=== PATIENT | male | born 1950 | race Caucasian/White ===

== ENCOUNTER 2016-12-27 16:00 | Inpatient (IN) | END 2017-01-05 16:52 | disposition home health service (06) | DRG 872 | DX: A41.9 Sepsis, unspecified organism (principal); N17.9 Acute kidney failure, unspecified; E11.52 Type 2 diabetes mellitus with diabetic peripheral angiopathy with gangrene; E11.42 Type 2 diabetes mellitus with diabetic polyneuropathy; M86.9 Osteomyelitis, unspecified; N30.00 Acute cystitis without hematuria; E11.621 Type 2 diabetes mellitus with foot ulcer; E11.65 Type 2 diabetes mellitus with hyperglycemia; E11.610 Type 2 diabetes mellitus with diabetic neuropathic arthropathy; L97.529 Non-pressure chronic ulcer of other part of left foot with unspecified severity; L03.032 Cellulitis of left toe; E11.69 Type 2 diabetes mellitus with other specified complication; I10 Essential (primary) hypertension; D63.8 Anemia in other chronic diseases classified elsewhere; I70.245 Atherosclerosis of native arteries of left leg with ulceration of other part of foot; I70.201 Unspecified atherosclerosis of native arteries of extremities, right leg; B96.5 Pseudomonas (aeruginosa) (mallei) (pseudomallei) as the cause of diseases classified elsewhere; Z79.4 Long term (current) use of insulin ==

== ENCOUNTER 2017-01-16 14:44 | Emergency (ER) | payer MEDICARE, OTHER ==
[~2017-01-16] VITALS: Ht 152.4 cm; Wt 68.0 kg
[~2017-01-16 14:44] MED LIST: ASPI81TA3 PO; ATOR40TA68 PO; LEVO500T72 PO; LISI20TA11 PO; METO-448 PO; NOVMIX SC; Vancomycin Iv Per Pharmacy IVPB
[2017-01-16 14:47] VITALS: Ht 152.4 cm; Wt 68.0 kg
--- NOTE | 2017-01-16 17:51 | ERA ---
ER Documentation Chief Complaint Date/Time DATE: 01/16/17 TIME: 17:48 Chief Complaint on home antibiotics for diabetic foot, not improvement HPI This is a 66-year-old Greek-speaking male. An ada accommodation consultant was used. He was sent by his home health care nurse for evaluation of diabetic toe. The patient is currently taking vancomycin through left upper extremity PICC line. He is unsure why the nurse sent him to the emergency room. He states that the wound has been healing well he denies any significant pain or drainage or discharge no fevers or chills. He states that he may have missed 1 dose of vancomycin within the last week secondary to malfunctioning system otherwise he has no complaints. He states that he has a follow-up appointment with Dr. Nielsen on of this week. ROS All systems reviewed and are negative except as per history of present illness. Medications Home Meds Active Scripts [Vancomycin Iv Per Pharmacy] 750 EACH No Conflict Check, 750 MG IVPB Q12 for 30 Days Prov:ROCHELLE MCBRIDE MD 01/05/17 Aspirin (Aspirin) 81 Mg Chew, 81 MG PO DAILY for 60 Days, #60 TAB Prov:ROCHELLE MCBRIDE MD 01/05/17 Metoprolol Tartrate* (Lopressor*) 25 Mg Tab, 25 MG PO BID for 30 Days, #60 TAB Prov:ROCHELLE MCBRIDE MD 01/05/17 Lisinopril* (Lisinopril*) 20 Mg Tablet, 20 MG PO DAILY for 30 Days, #30 TAB Prov:ROCHELLE MCBRIDE MD 01/05/17 Atorvastatin* (Atorvastatin*) 40 Mg Tablet, 40 MG PO HS for 60 Days, #60 TAB Prov:ROCHELLE MCBRIDE MD 01/05/17 Levofloxacin* (Levaquin*) 500 Mg Tablet, 500 MG PO DAILY for 30 Days, TAB Prov:ROCHELLE MCBRIDE MD 01/05/17 Reported Medications Insulin Aspart (Novolog Mix (70/30)) 100 Units/Ml Soln, 0 SC WITH BREAKFAST DINNE, EA 20 UNITS-QAM,14 UNITS-QOM 12/27/16 Allergies Allergies: Coded Allergies: No Known Allergy (Unverified , 01/16/17) PMhx/Soc History of Surgery: No Anesthesia Reaction: No Hx Neurological Disorder: No Hx Respiratory Disorders: No Hx Cardiac Disorders: No Hx Psychiatric Problems: No Hx Miscellaneous Medical Probl: Yes (DM GIB, HTN, + ETOH, severe, erosive esophagitis, hiatal hernia) Hx Alcohol Use: No Hx Substance Use: No Hx Tobacco Use: No FmHx Family History: diabetes Physical Exam Vitals Vital Signs Date Time Temp Pulse Resp B/P Pulse Ox O2 Delivery O2 Flow Rate FiO2 01/16/17 14:47 99.1 90 20 141/65 99 Physical Exam General: Well developed, well nourished, no acute distress Head: Normocephalic, atraumatic. Eyes: Pupils equally reactive, EOM intact ENT: Moist mucous membranes Neck: Supple, no lymphadenopathy Respiratory: Lungs clear bilaterally, no distress Cardiovascular: RRR, no murmurs, rubs, or gallops Abdominal: Soft, non-tender, non-distended, no peritoneal signs : Deferred MSK: Left great toe has an ulceration with granulation tissue, well-appearing without erythema warmth or tenderness, no evidence of malodorous discharge, no purulent drainage. Neurologic: Alert and oriented, moving all extremities, normal speech, no focal weakness, no cerebellar signs Skin: No rash Psych: Normal mood Result Diagram: 01/16/175 01/16/171754 Results 24 hrs Laboratory Tests Test 01/16/17 17:55 White Blood Count 7.210^3/ul Red Blood Count 3.4510^6/ul Hemoglobin 9.3g/dl Hematocrit 29.2% Mean Corpuscular Volume 84.6fl Mean Corpuscular Hemoglobin 27.0pg Mean Corpuscular Hemoglobin Concent 31.8g/dl Red Cell Distribution Width 14.0% Platelet Count 90708^3/UL Mean Platelet Volume 11.4fl Neutrophils % 59.2% Lymphocytes % 26.4% Monocytes % 11.2% Eosinophils % 2.6% Basophils % 0.3% Nucleated Red Blood Cells % 0.0/100WBC Neutrophils # (Manual) 410^3/ul Lymphocytes # 1.910^3/ul Monocytes # 0.810^3/ul Eosinophils # 0.210^3/ul Basophils # 0.010^3/ul Nucleated Red Blood Cells # 0.010^3/ul Erythrocyte Sedimentation Rate 98mm/Hr Sodium Level 140mmol/L Potassium Level 3.9mmol/L Chloride Level 99mmol/L Carbon Dioxide Level 25mmol/L Anion Gap 20 Blood Urea Nitrogen 33mg/dl Creatinine 1.63mg/dl Glucose Level 90mg/dl Calcium Level 9.6mg/dl C-Reactive Protein 1.7mg/dl Procedures/MDM EKG, MONITORS, & DIAGNOSTIC IMAGING: X-ray left great toe radiology IMPRESSION: 1. Marked lysis of the first distal phalanx with associated pathologic fractures. Findings consistent with osteomyelitis. 2. Atherosclerosis. 3. Large soft tissue also of the first toe distally and diffuse soft tissue swelling of the first toe. RPTAT: QQ LAB INTERPRETATION: No leukocytosis, elevated ESR and CRP though to be expected MEDICAL DECISION MAKING: The patient presents for evaluation of left great toe ulcer. I am unclear why the patient's home health care nurse and the patient to the emergency room other than she may have confused granulation tissue with purulent drainage. The wound is extremely well-appearing here in the emergency room without signs of significant infection. The patient has no complaints and no pain out of proportion. Given his history I do believe he would benefit from screening laboratory testing, ESR, CRP and x-ray. However the patient has prompt follow- up with his sr. logistics analyst this week on . The patient is currently receiving appropriate antibiotics. No systemic signs or symptoms of infection or sepsis. If the patient's laboratory testing is reassuring I believe outpatient management will be appropriate. ER COURSE: The patient's ESR and CRP are elevated though to be expected, no fever and normal white count. I spoke to Dr. Nielsen, his managing sr. logistics analyst. He reviewed images of the toe and agrees that the patient can be safely discharged with follow-up on . No indication for hospitalization. Patient informed. Dressing applied. I kept the patient and/or family informed of laboratory and diagnostic imaging results throughout the emergency room course. DISPOSITION PLAN: We discussed follow up with the patient's primary care doctor within 24 to 48 hours as needed. We also discussed return to the emergency room for worsening symptoms or worsening condition. Outpatient referral: [facility] on Departure Diagnosis: Primary Impression: Osteomyelitis of left foot Qualified Code: M86.272 - Subacute osteomyelitis of left foot Condition: Stable HAILEY SANTIAGO MD Jan 16, 2017 17:50
[2017-01-16 18:14] LABS: BASOPHILS % 0.3 % (0.0-2.0); EOSINOPHILS # 0.2 10^3/ul (0.0-0.5); EOSINOPHILS % 2.6 % (0.0-7.0); HEMATOCRIT 29.2 % (42.0-52.0); HEMOGLOBIN 9.3 g/dl (14.0-18.0); LYMPHOCYTES # 1.9 10^3/ul (0.8-2.9); LYMPHOCYTES % 26.4 % (15.0-51.0); MEAN CORPUSCULAR HGB CONC 31.8 g/dl (32.0-37.0); MEAN CORPUSCULAR VOLUME 84.6 fl (82.0-101.0); MEAN PLATELET VOLUME 11.4 fl (7.4-10.4); MONOCYTE # 0.8 10^3/ul (0.3-0.9); MONOCYTES % 11.2 % (0.0-11.0); NEUTROPHILS % 59.2 % (39.0-77.0); PLATELET COUNT 247 10^3/UL (140-415); RED BLOOD COUNT 3.45 10^6/ul (4.70-6.10); WHITE BLOOD COUNT 7.2 10^3/ul (4.8-10.8)
--- NOTE | 2017-01-16 18:22 | RADRPT ---
PROCEDURE: XR Left First Toe. CLINICAL INDICATION: Osteomyelitis of the left first toe. TECHNIQUE: Three views of the left first toe are available for review COMPARISON: Left foot radiographs dated 12/27/2016. FINDINGS: There is been significant interval change with marked lysis of the first distal phalanx and associat ed pathologic fractures. There is pathologic fracture through the proximal articular surface of the first distal phalanx. There is no other lytic lesion or fracture. The articular surfaces are other baum intact. Vascular calcifications are present consistent with atherosclerosis. There is a large soft tissue ulcer of the first toe distally there is diffuse soft tissue swelling o f the first toe. There is no radiopaque foreign body. IMPRESSION: 1. Marked lysis of the first distal phalanx with associated pathologic fractures. Findings consist ent with osteomyelitis. 2. Atherosclerosis. 3. Large soft tissue also of the first toe distally and diffuse soft tissue swelling of the first t oe. RPTAT: QQ .Mauro Gonsales MD, MD Date Time Electronically viewed and signed by .Mauro Gonsales MD, on 01/16/2017 18:21 .R/
[2017-01-16 18:46] LABS: CALCIUM 9.6 mg/dl (8.4-10.2); CREATININE 1.63 mg/dl (0.61-1.24); POTASSIUM 3.9 mmol/L (3.5-5.1)
[2017-01-16 18:58] LABS: C-REACTIVE PROTEIN 1.7 mg/dl (0.0-0.9)
[2017-01-16 20:15] VITALS: BP 134/77; PULSE 88; RESP 18; TEMP 98.9
== END 2017-01-16 20:15 | disposition home or self-care (01) ==
LOC: E/R 14:44
DX: M86.272 Subacute osteomyelitis, left ankle and foot (principal); I10 Essential (primary) hypertension; L97.522 Non-pressure chronic ulcer of other part of left foot with fat layer exposed; Z79.4 Long term (current) use of insulin; Z79.82 Long term (current) use of aspirin
CPT/HCPCS: 73660; 80048; 85025; 85651; 86140

== ENCOUNTER 2017-02-24 12:25 | Inpatient (IN) | payer MEDICARE, OTHER ==
[~2017-02-24] VITALS: Ht 167.6 cm; Wt 61.5 kg
[2017-02-24 14:13] LABS: HEMATOCRIT 31.3 % (42.0-52.0); HEMOGLOBIN 10.4 g/dl (14.0-18.0); LYMPHOCYTES # 1.3 10^3/ul (0.8-2.9); LYMPHOCYTES % 12.3 % (15.0-51.0); MEAN CORPUSCULAR HEMOGLOBIN 27.1 pg (29.0-33.0); MEAN CORPUSCULAR HGB CONC 33.2 g/dl (32.0-37.0); MEAN CORPUSCULAR VOLUME 81.5 fl (82.0-101.0); MEAN PLATELET VOLUME 11.3 fl (7.4-10.4); MONOCYTE # 0.9 10^3/ul (0.3-0.9); MONOCYTES % 8.5 % (0.0-11.0); NEUTROPHIL # 8.3 10^3/ul (1.6-7.5); NEUTROPHILS % 78.8 % (39.0-77.0); PLATELET COUNT 186 10^3/UL (140-415); RED BLOOD COUNT 3.84 10^6/ul (4.70-6.10); RED CELL DISTRIBUTION WIDTH 13.5 % (11.5-14.5); WHITE BLOOD COUNT 10.5 10^3/ul (4.8-10.8)
[2017-02-24 14:29] LABS: INR 1.11; PROTIME 14.3 Sec (12.2-14.2); PT RATIO 1.1
[2017-02-24 14:30] LABS: PARTIAL THROMBOPLASTIN TIME 29.2 Sec (25.0-35.0)
--- NOTE | 2017-02-24 14:40 | RADRPT ---
PROCEDURE: XR Chest. CLINICAL INDICATION: Sepsis. TECHNIQUE: Single frontal view. COMPARISON: 01/04/2017. FINDINGS: The left arm PICC line has been removed. The lungs are clear. The heart is mildly enlarged. There is no pleural effusion. There is no pneumothorax. IMPRESSION: 1. Left arm PICC line removed. 2. Clear lungs. 3. Mild cardiomegaly. RPTAT: QQ .Mauro Gonsales MD, MD Date Time Electronically viewed and signed by .Mauro Gonsales MD, MD on 02/24/2017 14:39 .R/
[2017-02-24 14:51] LABS: ADD UMIC YES; UR ASCORBIC ACID NEGATIVE (NEGATIVE); UR BILIRUBIN (Dip) NEGATIVE (NEGATIVE); UR BLOOD (Dip) NEGATIVE (NEGATIVE); UR CLARITY SLIGHTLY CLOUDY (CLEAR); UR COLOR YELLOW (YELLOW); UR GLUCOSE (Dip) 1+ mg/dL (NEGATIVE); UR KETONES (Dip) TRACE mg/dL (NEGATIVE); UR LEUKOCYTE ESTERASE (Dip) NEGATIVE Leu/ul (NEGATIVE); UR MUCUS FEW /HPF (NONE SEEN); UR NITRITE (Dip) NEGATIVE (NEGATIVE); UR RBC 1 /HPF (0-5); UR SPECIFIC GRAVITY (Dip) 1.016 (1.003-1.030); UR TOTAL PROTEIN (Dip) 2+ mg/dl (NEGATIVE); UR UROBILINOGEN (Dip) NEGATIVE (NEGATIVE)
--- NOTE | 2017-02-24 14:52 | RADRPT ---
PROCEDURE: XR Left Foot. CLINICAL INDICATION: Left foot pain. Left first toe pain. Osteomyelitis. TECHNIQUE: Three views. Frontal, lateral, and oblique. COMPARISON: Left first toe radiographs dated 01/16/2017. FINDINGS: As seen previously, there is marked lysis of the first distal phalanx with associated pathologic fra ctures. There is slightly more lysis when compared with the prior study. There is a pathologic fract ure through the proximal articular surface of the first distal phalanx and a pathologic fracture thr ough the terminal tuft. There is no other lytic lesion or fracture. The articular surfaces are other baum intact. Vascular calcifications are present consistent with atherosclerosis. There is a soft tissue ulcer of the first toe distally and there is diffuse soft tissue swelling of the first toe. The soft tissues are otherwise unremarkable. There is no radiopaque foreign body. IMPRESSION: 1. Osteomyelitis of the first distal phalanx, worse than seen previously. 2. Atherosclerosis. 3. No other new abnormality. RPTAT: QQ .Mauro Gonsales MD, MD Date Time Electronically viewed and signed by .Mauro Gonsales MD, on 02/24/2017 14:52 .R/
[2017-02-24 14:57] LABS: ALANINE AMINOTRANSFERASE 64 IU/L (13-69); ALBUMIN 4.2 g/dl (3.3-4.9); ALBUMIN/GLOBULIN RATIO 0.91; ALKALINE PHOSPHATASE 140 IU/L (42-121); ANION GAP 16 (8-16); ASPARTATE AMINO TRANSFERASE 58 IU/L (15-46); BILIRUBIN,INDIRECT 0.5 mg/dl (0-1.1); BILIRUBIN,TOTAL 0.5 mg/dl (0.2-1.3); BLOOD UREA NITROGEN 39 mg/dl (7-20); CALCIUM 9.2 mg/dl (8.4-10.2); CARBON DIOXIDE 21 mmol/L (21-31); CHLORIDE 106 mmol/L (97-110); GLUCOSE 195 mg/dl (70-220); POTASSIUM 4.4 mmol/L (3.5-5.1); SODIUM 139 mmol/L (135-144); TOTAL PROTEIN 8.8 g/dl (6.1-8.1)
[2017-02-24] MEDS ORDERED: SOD CHLORIDE 0.9% 1,000 ML IV SCH (15:05)
[2017-02-24 15:10] LABS: TROPONIN-I < 0.012 ng/ml (0.00-0.12)
[2017-02-24] MEDS ORDERED: SODIUM CHLORIDE 0.9% 1L BAG IV* STA (15:23)
--- NOTE | 2017-02-24 15:24 | ERA ---
ER Documentation Chief Complaint Date/Time DATE: 02/24/17 TIME: 15:20 Chief Complaint Pt with fever, weakness, ST X 4 days. Tylenol @ 1245, LLE non-healing ulcer HPI This is a 66-year-old male who presents to the emergency room for evaluation of generalized weakness. According to the patient and the patient's daughter this patient does have a history of type 1 diabetes and does have a previous history of bone infection in the left foot. The patient states that he does have an ulcer in the area and states that whenever he gets weak and has a fever usually has an infection in that site. The patient was on IV antibiotics with a home health care nurse approximately 3 weeks ago however he finishes course of antibiotics. The patient came to the ER today with daughter for evaluation of his symptoms. ROS All systems reviewed and are negative except as per history of present illness. Medications Home Meds Active Scripts [Vancomycin Iv Per Pharmacy] 750 EACH No Conflict Check, 750 MG IVPB Q12 for 30 Days Prov:ROCHELLE MCBRIDE MD 01/05/17 Aspirin (Aspirin) 81 Mg Chew, 81 MG PO DAILY for 60 Days, #60 TAB Prov:ROCHELLE MCBRIDE MD 01/05/17 Metoprolol Tartrate* (Lopressor*) 25 Mg Tab, 25 MG PO BID for 30 Days, #60 TAB Prov:ROCHELLE MCBRIDE MD 01/05/17 Lisinopril* (Lisinopril*) 20 Mg Tablet, 20 MG PO DAILY for 30 Days, #30 TAB Prov:ROCHELLE MCBRIDE MD 01/05/17 Atorvastatin* (Atorvastatin*) 40 Mg Tablet, 40 MG PO HS for 60 Days, #60 TAB Prov:ROCHELLE MCBRIDE MD 01/05/17 Levofloxacin* (Levaquin*) 500 Mg Tablet, 500 MG PO DAILY for 30 Days, TAB Prov:ROCHELLE MCBRIDE MD 01/05/17 Reported Medications Insulin Aspart (Novolog Mix (/30)) 100 Units/Ml Soln, 0 SC WITH BREAKFAST DINNE, EA 20 UNITS-QAM,14 UNITS-QOM 12/27/16 Allergies Allergies: Coded Allergies: No Known Allergy (Unverified , 01/16/17) PMhx/Soc History of Surgery: No Anesthesia Reaction: No Hx Neurological Disorder: Yes (diabetic neuropathy) Hx Respiratory Disorders: No Hx Cardiac Disorders: Yes (htn) Hx Psychiatric Problems: No Hx Miscellaneous Medical Probl: Yes (DM, stomach ulcer, r. toe ulceration w debridment) Hx Alcohol Use: No Hx Substance Use: No Hx Tobacco Use: No Smoking Status: Never smoker Physical Exam Vitals Vital Signs Date Time Temp Pulse Resp B/P Pulse Ox O2 Delivery O2 Flow Rate FiO2 02/24/17 12:35 99.8 91 20 100/71 97 Physical Exam INITIAL VITAL SIGNS: Reviewed by me GENERAL: The patient is well developed and appropriate for usual state of health in no apparent distress HEENT: Pupils equal, round, and reactive to light. EOMI. There is no scleral icterus. NECK: C-spine is soft and supple, there is no meningismus. There is no cervical lymphadenopathy. LUNGS: Clear to auscultation bilaterally. There are no rales, wheezes or rhonchi. HEART: Regular rate and rhythm, no murmurs, clicks, rubs or gallops. ABDOMEN: Soft, non-tender, non-distended. There are bowel sounds in all four quadrants. No rebound or guarding. EXTREMITIES: There is no peripheral cyanosis or edema. No focal swelling or erythema. NEUROLOGICAL: The patient moves all four extremities with 5/5 strength. Cranial nerves II - XII are intact. Normal gait. Alert and oriented SKIN: 2 cm x 2 cm ulceration of the plantar aspect of the left great toe, surrounding area of erythema there is no apparent rash or petechiae. HEME/LYMPHATIC: There is no evidence of excessive bruising or lymphedema. PSYCHIATRIC: The patient does not appear anxious or depressed. Result Diagram: 02/24/17 1400 02/24/17 1400 Results 24 hrs Laboratory Tests Test 02/24/17 14:00 02/24/17 14:15 White Blood Count 10.510^3/ul Red Blood Count 3.8410^6/ul Hemoglobin 10.4g/dl Hematocrit 31.3% Mean Corpuscular Volume 81.5fl Mean Corpuscular Hemoglobin 27.1pg Mean Corpuscular Hemoglobin Concent 33.2g/dl Red Cell Distribution Width 13.5% Platelet Count 54947^3/UL Mean Platelet Volume 11.3fl Neutrophils % 78.8% Lymphocytes % 12.3% Monocytes % 8.5% Eosinophils % 0.0% Basophils % 0.0% Nucleated Red Blood Cells % 0.0/100WBC Neutrophils # 8.310^3/ul Lymphocytes # 1.310^3/ul Monocytes # 0.910^3/ul Eosinophils # 0.010^3/ul Basophils # 0.010^3/ul Nucleated Red Blood Cells # 0.010^3/ul Prothrombin Time 14.3Sec Prothrombin Time Ratio 1.1 INR International Normalized Ratio 1.11 Activated Partial Thromboplast Time 29.2Sec Sodium Level 139mmol/L Potassium Level 4.4mmol/L Chloride Level 106mmol/L Carbon Dioxide Level 21mmol/L Anion Gap 16 Blood Urea Nitrogen 39mg/dl Creatinine 1.80mg/dl Glucose Level 195mg/dl Lactic Acid Level 1.1mmol/L Calcium Level 9.2mg/dl Total Bilirubin 0.5mg/dl Direct Bilirubin 0.00mg/dl Indirect Bilirubin 0.5mg/dl Aspartate Amino Transf (AST/SGOT) 58IU/L Alanine Aminotransferase (ALT/SGPT) 64IU/L Alkaline Phosphatase 140IU/L Troponin I < 0.012ng/ml Total Protein 8.8g/dl Albumin 4.2g/dl Globulin 4.60g/dl Albumin/Globulin Ratio 0.91 Urine Color YELLOW Urine Clarity SLIGHTLY CLOUDY Urine pH 5.0 Urine Specific [place] 1.016 Urine Ketones TRACEmg/dL Urine Nitrite NEGATIVEmg/dL Urine Bilirubin NEGATIVEmg/dL Urine Urobilinogen NEGATIVEmg/dL Urine Leukocyte Esterase NEGATIVELeu/ul Urine Microscopic RBC 1/HPF Urine Microscopic WBC 2/HPF Urine Mucus FEW/HPF Urine Hemoglobin NEGATIVEmg/dL Urine Glucose 1+mg/dL Urine Total Protein 2+mg/dl Current Medications Medications (Trade) Dose Ordered Sig/Adam Route PRN Reason Start Time Stop Time Status Last Admin Dose Admin Sodium Chloride (NS) 1,000 ml @ 80 mls/hr [id number] IV 02/24/17 15:05 02/25/17 03:34 Ondansetron HCl (Zofran Inj) 4 mg BRIDGE ORDER PRN IV NAUSEA AND/OR VOMITING 02/24/17 15:30 02/25/17 15:29 Acetaminophen (Tylenol Tab) 650 mg ER BRIDGE PRN PO MILD PAIN/FEVER 02/24/17 15:30 02/25/17 15:29 Procedures/MDM EKG: Rate/Rhythm: [Normal Sinus Rhythm] QRS, ST, T-waves: [No changes consistent w/ acute ischemia] Impression: [No evidence of ischemia or arrhythmia] Chest X-ray 1V Interpreted by me: Soft Tissue: No acute abnormalities Bones: No acute abnormalities Mediastinum/Cardiac Silhouette/Lungs: [No acute abnormalities] X-ray Foot 3V Interpreted by me: Bones: Osteomyelitis of first metatarsal Joints: [No dislocation] Foreign body: [None] This 66-year-old male presents to the ER for evaluation of generalized weakness. The patient did state he had a fever at home and when I evaluated this patient he did have foot ulcer on the plantar aspect of the first great toe. Patient did have a septic workup in the emergency room and x-ray does reveal osteomyelitis. He was started on vancomycin in the emergency room. He will be given Rocephin and will be placed in for admission at this time under the care of her panel physician Dr. Strong. Patient was given 30 cc/kg of IV normal saline has a mean arterial pressure gradient 65 Departure Diagnosis: Primary Impression: Osteomyelitis of left foot Additional Impressions: Acute weakness Renal insufficiency Condition: Stable AMEE MARTINEZ DO Feb 24, 2017 15:24
[2017-02-24] MEDS ORDERED: ACETAMINOPHEN 325 MG TAB PO PRN (15:30)
[2017-02-24] MEDS ORDERED: ONDANSETRON 4 MG INJ IV PRN ×2 (15:30→16:30)
[2017-02-24] MEDS ORDERED: NOVMIX SC ×2 (15:46)
[2017-02-24] MEDS: SOD CHLORIDE 0.9% 1,000 ML IV SCH ×2 (16:30→18:52)
[2017-02-24] MEDS ORDERED: HYDROCODONE/APAP (5/325) TAB PO PRN ×2 (16:30)
[2017-02-24] MEDS ORDERED: DOCUSATE SODIUM 100 MG CAP PO PRN (16:30)
[2017-02-24] MEDS ORDERED: CEFTRIAXONE 1 GM/50 ML (PMX) 50 ML IVPB ONE (16:30)
[2017-02-24] MEDS ORDERED: VANCOMYCIN 1 GM (PMX) 250 ML IVPB SCH (16:30)
[2017-02-24] MEDS ORDERED: MAGNESIUM HYDROXIDE 30ML CUP PO PRN (16:30)
[2017-02-24] MEDS ORDERED: ACETAMINOPHEN 650 MG SUPP PR PRN (16:30)
[2017-02-24] MEDS ORDERED: NACL 0.9% 3 ML SYG IV SCH (16:30)
[2017-02-24] MEDS ORDERED: BISACODYL 10 MG SUPP PR PRN (16:30)
[2017-02-24] MEDS ORDERED: morphine 2 MG INJ IV PRN (16:30)
[2017-02-24] MEDS ORDERED: VANCOMYCIN IV PER PHARMACY XX SCH (17:00)
--- NOTE | 2017-02-24 17:03 | HP ---
Date/Time of Note Date/Time of Note DATE: 02/24/17 TIME: 16:50 Assessment/Plan VTE Prophylaxis VTE Prophylaxis Intervention: SCD's Assessment/Plan Chief Complaint/Hosp Course Impression and plan 1. Left first distal phalanx osteomyelitis. Of note patient did finish antibiotic regimen roughly 2 weeks ago. Imaging this time shows worsening of left first distal phalanx. Will get video conference specialist as well as infectious disease physician to follow. 2. Suspect acute bronchitis. Will place on antibiotics for now. Follow-up on influenza culture. 3. Diabetes. Will start insulin regimen. Adjust as needed. 4. Essential hypertension. Will provide with antihypertensives and adjust as needed 5. Anemia likely of chronic disease. Remain stable at present. Will monitor for now. 6. History of severe erosive esophagitis and gastritis. Continue on PPI medication 7. AK I. Will get airbrush artist technical to follow. Admission process time is greater than 40 minutes Discussed plan of care with Dr. Strong Problems: HPI/ROS Hx of Present Illness This is a 66-year-old male with history of diabetes, insulin dependency, GI bleed, hypertension, alcohol use, severe erosive esophagitis and gastritis who came to [facility] for reports of increased weakness as well as cough. Patient reports that his symptoms had been occurring for roughly 3 days duration with no improvement. He denies following his primary care provider in taking any antibiotics. He subsequently went to [facility] for further evaluation. Of note patient was previously discharged from [facility] on January 05, 2017 for osteomyelitis of his left foot. He reportedly was sent home on antibiotics and finished his antibiotic regimen roughly 2 weeks ago. It tended to leave this time in the hospital be again found his left foot to be infected with worsening imaging showing osteomyelitis of the first distal phalanx. His chest x-ray did show him to have clear lungs and mild cardiomegaly. He does report that he has one sick contact with a friend. He denies having any influenza shots at this time. He denies any fevers or chills at home. He only reports having moderate productive cough. He denies any other chest pain or shortness of breath or any other associated symptoms. On laboratory where he was noted to be slightly anemic and also with acute renal insufficiency. Lactic acid was 1.2. We will evaluate him for the aformentiond issues. ROS 12 point review of systems obtained and entirely negative except that mentioned in history of present illness PMH/Family/Social Past Medical History Medical/surgical history diabetes, insulin dependency, GI bleed, hypertension, alcohol use, severe erosive esophagitis and gastritis Past Surgical History Past Surgical Hx: no surgical history Social History Alcohol Use: other (Previous alcohol abuse) Smoking Status: Never smoker Drug Use: none Exam/Review of Systems Vital Signs Vitals Vital Signs Date Time Temp Pulse Resp B/P Pulse Ox O2 Delivery O2 Flow Rate FiO2 02/24/17 16:18 85 16 137/61 99 Room Air 02/24/17 12:35 99.8 Exam Constitutional: alert, oriented Psych: no complaints Head: normocephalic Respiratory: other (No obvious with wheezing or rhonchi) Cardiovascular: regular rate and rhythm Gastrointestinal: non-tender, soft Musculoskeletal: other (Noted with left foot first distal phalanx with ulcerative wound) Neurological: MOSS GATHERER II-XII intact, nl mental status, nl speech Labs Result Diagram: 02/24/17 1400 02/24/17 1400 Medications Medications Current Medications Sodium Chloride 1,000 ml @ 80 mls/hr [id number] IV Last administered on 16:38; Admin Dose 80 MLS/HR; Start 02/24/17 at 15:05; Stop 02/25/17 at 03: 34 Vancomycin HCl 250 ml @ 125 mls/hr ONCE IVPB ; Start 02/24/17 at 16:30; Stop at 18:29 Ceftriaxone Sodium (Rocephin) 50 ml @ 100 mls/hr ONCE ONCE IVPB Last administered on 02/24/17 16:35; Admin Dose 100 MLS/HR; Start 02/24/17 at 16:30 ; Stop 02/24/17 at 16:59 Aspirin (Aspirin) 81 mg DAILY PO ; Start 02/25/17 at 09:00; Status UNV Atorvastatin Calcium (Lipitor) 40 mg HS PO ; Start 02/24/17 at 21:00; Status UNV Lisinopril (Zestril) 20 mg DAILY PO ; Start 02/25/17 at 09:00; Status UNV Metoprolol Tartrate 25 mg 25 mg BID PO ; Start 02/24/17 at 21:00; Status UNV Sodium Chloride (NS) 1,000 ml @ 75 mls/hr [id number] IV ; Start 02/24/17 at 16:30 ; Status UNV Ondansetron HCl (Zofran Inj) 4 mg Q6H PRN IV NAUSEA AND/OR VOMITING; Start at 16:30; Status UNV Acetaminophen (Tylenol Tab) 650 mg Q6H PRN PO PAIN LEVEL 1-3 OR FEVER; Start at 16:30; Status UNV Acetaminophen (Tylenol Supp) 650 mg Q6H PRN [place] PAIN LEVEL 1-3 OR FEVER; Start 02/24/17 at 16:30; Status UNV Acetaminophen/ Hydrocodone Bitart ([place] (5/325)) 1 tab Q6H PRN PO MODERATE PAIN LEVEL 4-6; Start 02/24/17 at 16:30; Status UNV Acetaminophen/ Hydrocodone Bitart ([place] (5/325)) 2 tab Q6H PRN PO SEVERE PAIN LEVEL 7-10; Start 02/24/17 at 16:30; Status UNV Morphine Sulfate (morphine) 2 mg Q4H PRN IV SEVERE PAIN LEVEL 7-10; Start 02/24 at 16:30; Status UNV Docusate Sodium (Colace) 100 mg Q12H PRN PO CONSTIPATION; Start 02/24/17 at 16: 30; Status UNV Magnesium Hydroxide (Milk Of Mag) 30 ml DAILY PRN PO CONSTIPATION; Start at 16:30; Status UNV Bisacodyl (Dulcolax Supp) 10 mg DAILY PRN [place] CONSTIPATION; Start 02/24/17 at 16 :30; Status UNV Pantoprazole (Protonix Iv) 40 mg DAILY@06 IV ; Start 02/25/17 at 06:00; Status UNV Miscellaneous Information (* Miscellaneous Pharmacy Order) Discontinue current oral sulfonylur... ONCE ONCE XX ; Start 02/24/17 at 16:30; Stop 02/24/17 at 16: 31; Status UNV Diagnostic Test (Pha) (Accu-Chek) 1 ea 02 XX ; Start 02/25/17 at 02:00; Status UNV Insulin Glargine (Lantus) 9 unit DAILY@08 SC ; Start 02/25/17 at 08:00; Status UNV Miscellaneous Information (* Miscellaneous Pharmacy Order) HYPOGLYCEMIA PROTOCOL w... ONCE ONCE XX ; Start 02/24/17 at 16:30; Stop 02/24/17 at 16:31; Status TRISHAV CLARIBEL OCHOA Feb 24, 2017 17:02
--- NOTE | 2017-02-24 17:35 | CONS ---
Date/Time of Note Date/Time of Note DATE: 02/24/17 TIME: 17:35 Assessment/Plan Assessment/Plan Chief Complaint/Hosp Course ID SHORT NOTE => Patient known to Dr. Arroyo's ID Team Consultants from prior admissions CURRENT ABX: DAY #1 => Vanco IV + Ceftriaxone + Azith REASON FOR ADMISSION * Fevers + generalized weakness x 4 days at home, non-healing foot ulcer ... "Whenever I have fever + weakness at home, it is because my bone infection is back." * (+)Bronchial cough present INFLUENZA A & B BY EIA Final INFLU A&B BY EIA INFLUENZA A NEGATIVE (Ref Range Neg) INFLUENZA B NEGATIVE (Ref Range Neg) * 02/24/17 Left Foot X-Ray: IMPRESSION: 1. Osteomyelitis of the first distal phalanx, worse than seen previously. 2. Atherosclerosis.3. No other new abnormality. * 02/24/17 CXR: IMPRESSION:1. Left arm PICC line removed. 2. Clear lungs.3. Mild cardiomegaly. * 02/24/17 1400 02/24/17 1400 HPI 66 yo M w/PMHx Diabetes Type 1 w/severe peripheral neuropathy, chronic left foot diabetic foot ulcer with hx of osteomyelitis, has completed course of ABX via PICC, which was subsequently removed. * Patient reports he came for evaluation of his left foot ulcer "whenever I have fever and weakness it is because my bone infection is worse." ROS All systems reviewed and are negative except as per history of present illness. Medications Home Meds Active Scripts [Vancomycin Iv Per Pharmacy] 750 EACH No Conflict Check, 750 MG IVPB Q12 for 30 Days Prov:ROCHELLE MCBRIDE MD 01/05/17 Aspirin (Aspirin) 81 Mg Chew, 81 MG PO DAILY for 60 Days, #60 TAB Prov:ROCHELLE MCBRIDE MD 01/05/17 Metoprolol Tartrate* (Lopressor*) 25 Mg Tab, 25 MG PO BID for 30 Days, #60 TAB Prov:ROCHELLE MCBRIDE MD 01/05/17 Lisinopril* (Lisinopril*) 20 Mg Tablet, 20 MG PO DAILY for 30 Days, #30 TAB Prov:ROCHELLE MCBRIDE MD 01/05/17 Atorvastatin* (Atorvastatin*) 40 Mg Tablet, 40 MG PO HS for 60 Days, #60 TAB Prov:ROCHELLE MCBRIDE MD 01/05/17 Levofloxacin* (Levaquin*) 500 Mg Tablet, 500 MG PO DAILY for 30 Days, TAB Prov:ROCHELLE MCBRIDE MD 01/05/17 Reported Medications Insulin Aspart (Novolog Mix (30)) 100 Units/Ml Soln, 0 SC WITH BREAKFAST DINNE, EA 20 UNITS-QAM,14 UNITS-QOM 12/27/16 Allergies Allergies: Coded Allergies: No Known Allergy (Unverified , 01/16/17) PMhx/Soc History of Surgery: s/p toe debridement 2015 Anesthesia Reaction: No Hx Neurological Disorder: Yes (diabetic neuropathy) Hx Respiratory Disorders: No Hx Cardiac Disorders: Yes => (+)HTN, HLD, (+)PVD Hx Psychiatric Problems: No Hx Miscellaneous Medical Probl: Yes (DM, stomach ulcer, r. toe ulceration w debridement) Hx Alcohol Use: No -> Hx of ETOH abuse per notes prior admission Hx Substance Use: No Hx Tobacco Use: No Smoking Status: Never smoker Physical Exam Vitals Vital Signs Date Time Temp Pulse Resp B/P Pulse Ox O2 Delivery O2 Flow Rate FiO2 02/24/17 12:35 99.8 91 20 100/71 97 Physical Exam Constitutional: alert, oriented, well developed HEENT: Unremarkable Neck: Supple, full ROM Respiratory: clear to auscultation, normal air movement Cardiovascular: nl pulses, regular rate and rhythm Gastrointestinal: Soft, NT Extremities: Left foot DFU over great toe and metatarsal foot, with necrosis areas Neurological: nl mental status, nl speech, nl strength ID ASSESSMENT 66 yo M PMhx HTN, HLD, DM-Type 1 w/peripheral neuropathy, GERD, PAD, ETOH abuse admit with: 1. SIRS on admission w/TMax 99.8, ESR 98, CRP 1.7, left shift per Diff Neuts 78.8%, tachycardia => #2 2. Recurrent acute left foot/great toe/1st metatarsal diabetic foot infection with osteomyelitis * 02/24/17 Left Foot X-Ray: IMPRESSION: 1. Osteomyelitis of the first distal phalanx, worse than seen previously. 2. Atherosclerosis.3. No other new abnormality. * 12/29/16 MRI:IMPRESSION:1. Osteomyelitis of the distal phalanx of the left great toe, with contiguous soft tissue ulcerations. 2. Possible early osteomyelitis in the distal aspect of the first proximal phalanx. * WOUND Cx: 12/28 TOE WOUND CULTURE * Organism 1 PSEUDOMONAS AERUGINOSA * Organism 2 ACINETOBACTER BAUMANNII * Organism 3 ENTEROCOCCUS SPECIES * Organism 4 DIPTHEROIDS = CORYNEBACTERIUM SPECIES 3. Diabetes w/complicated diabetic peripheral neuropathy * A1C = 8.1 * 12/29/16 MRI: Early neuropathic changes in the left foot. 4. Peripheral arterial disease * 12/31 BLEXT Arterial Duplex: 1. No evidence of hemodynamically significant arterial stenosis or occlusion in the bilateral lower extremities. 2. Bilateral atherosclerotic calcifications. * Atherosclerosis of the aorta 5. Acute renal injury on CKD 6. Acute bronchitis w/cough -> CXR 02/24/17 = Lungs Clear 7. GERD w/Hx of GIB 2014 -> EGD 10/05/15: Severe ulcerated esophagitis distal third of esophagus likely source of bleeding. Small hiatal hernia. 8. Hx of ETOH 9. HTN 10. HLD ( )MRSA Nares -> Will order CURRENT ABX: DAY #1 => Vanco IV + Ceftriaxone + Azith ID RECOMMENDATIONS 1. Continue Vanco IV + Ceftriaxone 2. APC consult 3. Thank you -- Will follow the patient closely with you. Problems: Consultation Date/Type/Reason Admit Date/Time Feb 24, 2017 at 15:05 Initial Consult Date Exam/Review of Systems Vital Signs Vitals Vital Signs Date Time Temp Pulse Resp B/P Pulse Ox O2 Delivery O2 Flow Rate FiO2 02/24/17 17:13 78 17 128/61 99 Room Air 02/24/17 12:35 99.8 Results Result Diagram: 02/24/17 1400 02/24/17 1400 Results 24 hrs Laboratory Tests Test 02/24/17 14:00 02/24/17 14:15 02/24/17 15:15 02/24/17 16:00 White Blood Count 10.5 # Red Blood Count 3.84 L Hemoglobin 10.4 L Hematocrit 31.3 L Mean Corpuscular Volume 81.5 L Mean Corpuscular Hemoglobin 27.1 L Mean Corpuscular Hemoglobin Concent 33.2 Red Cell Distribution Width 13.5 Platelet Count 186 # Mean Platelet Volume 11.3 H Neutrophils % 78.8 H Lymphocytes % 12.3 L Monocytes % 8.5 Eosinophils % 0.0 Basophils % 0.0 Nucleated Red Blood Cells % 0.0 Neutrophils # 8.3 H Lymphocytes # 1.3 Monocytes # 0.9 Eosinophils # 0.0 Basophils # 0.0 Nucleated Red Blood Cells # 0.0 Prothrombin Time 14.3 H Prothrombin Time Ratio 1.1 INR International Normalized Ratio 1.11 Activated Partial Thromboplast Time 29.2 Sodium Level 139 Potassium Level 4.4 Chloride Level 106 Carbon Dioxide Level 21 Anion Gap 16 Blood Urea Nitrogen 39 H Creatinine 1.80 H Glucose Level 195 Lactic Acid Level 1.1 1.2 Calcium Level 9.2 Total Bilirubin 0.5 Direct Bilirubin 0.00 Indirect Bilirubin 0.5 Aspartate Amino Transf (AST/SGOT) 58 H Alanine Aminotransferase (ALT/SGPT) 64 Alkaline Phosphatase 140 H Troponin I < 0.012 Total Protein 8.8 H Albumin 4.2 Globulin 4.60 H Albumin/Globulin Ratio 0.91 Urine Color YELLOW Urine Clarity SLIGHTLY CLOUDY A Urine pH 5.0 Urine Specific [place] 1.016 Urine Ketones TRACE A Urine Nitrite NEGATIVE Urine Bilirubin NEGATIVE Urine Urobilinogen NEGATIVE Urine Leukocyte Esterase NEGATIVE Urine Microscopic RBC 1 Urine Microscopic WBC 2 Urine Mucus FEW A Urine Hemoglobin NEGATIVE Urine Glucose 1+ H Urine Total Protein 2+ H Hemoglobin A1c 8.1 H Medications Medications Current Medications Sodium Chloride 1,000 ml @ 80 mls/hr [id number] IV Last administered on 16:38; Admin Dose 80 MLS/HR; Start 02/24/17 at 15:05; Stop 02/25/17 at 03: 34 Vancomycin HCl (Vancocin) 250 ml @ 125 mls/hr ONCE IVPB Last administered on 17:07; Admin Dose 125 MLS/HR; Start 02/24/17 at 16:30; Stop 02/24/17 at 18:29 Aspirin (Aspirin) 81 mg DAILY PO ; Start 02/25/17 at 09:00 Atorvastatin Calcium (Lipitor) 40 mg HS PO ; Start 02/24/17 at 21:00 Lisinopril (Zestril) 20 mg DAILY PO ; Start 02/25/17 at 09:00 Metoprolol Tartrate 25 mg 25 mg BID PO ; Start 02/24/17 at 21:00 Sodium Chloride (NS) 1,000 ml @ 75 mls/hr [id number] IV ; Start 02/24/17 at 16:30 Ondansetron HCl (Zofran Inj) 4 mg Q6H PRN IV NAUSEA AND/OR VOMITING; Start at 16:30 Acetaminophen (Tylenol Tab) 650 mg Q6H PRN PO PAIN LEVEL 1-3 OR FEVER; Start at 16:30 Acetaminophen (Tylenol Supp) 650 mg Q6H PRN [place] PAIN LEVEL 1-3 OR FEVER; Start 02/24/17 at 16:30 Acetaminophen/ Hydrocodone Bitart ([place] (5/325)) 1 tab Q6H PRN PO MODERATE PAIN LEVEL 4-6; Start 02/24/17 at 16:30 Acetaminophen/ Hydrocodone Bitart ([place] (5/325)) 2 tab Q6H PRN PO SEVERE PAIN LEVEL 7-10; Start 02/24/17 at 16:30 Morphine Sulfate (morphine) 2 mg Q4H PRN IV SEVERE PAIN LEVEL 7-10; Start 02/24 at 16:30 Docusate Sodium (Colace) 100 mg Q12H PRN PO CONSTIPATION; Start 02/24/17 at 16: 30 Magnesium Hydroxide (Milk Of Mag) 30 ml DAILY PRN PO CONSTIPATION; Start at 16:30 Bisacodyl (Dulcolax Supp) 10 mg DAILY PRN [place] CONSTIPATION; Start 02/24/17 at 16 :30 Pantoprazole (Protonix Iv) 40 mg DAILY@06 IV ; Start 02/25/17 at 06:00 Diagnostic Test (Pha) (Accu-Chek) 1 ea 02 XX ; Start 02/25/17 at 02:00 Insulin Glargine 9 unit 9 unit DAILY@08 SC ; Start 02/25/17 at 08:00 Azithromycin (Zithromax 500mg/ NS (Pmx)) 250 ml @ 250 mls/hr DAILY IVPB ; Start 02/24/17 at 18:00 BHARAT LEUNG NP Feb 24, 2017 17:35
[2017-02-24] MEDS: INSULIN ASPART [NOVOLOG] 3 ML PEN SC SCH ×2 (17:45→20:55)
[2017-02-24 18:28] VITALS: BP 133/63; PULSE 83; RESP 16
[2017-02-24 18:29] VITALS: Ht 167.6 cm; Wt 61.5 kg
[2017-02-24] MEDS ORDERED: PENDING SANTYL ORDER FOR WOUND CARE XX PRN (19:00)
[2017-02-24] MEDS: AZITHROMYCIN 500MG/NS (PMX) 250 ML IVPB SCH (19:04)
[2017-02-24 20:48] VITALS: BP 146/70; RESP 18
[2017-02-24] MEDS: GUAIFENESIN/CODEINE 5ML CUP PO PRN (20:54)
[2017-02-24] MEDS: MEROPENEM 1 GM/50ML(PMX) 50 ML IVPB SCH (20:54)
[2017-02-24] MEDS: METOPROLOL 25 MG TAB PO SCH (20:55)
[2017-02-24] MEDS: ATORVASTATIN 40 MG TAB PO SCH (20:55)
[2017-02-24] MEDS ORDERED: MEROPENEM 2 GM in SOD CHLORIDE 0.9% 100 ML IVPB SCH (21:00)
[2017-02-24] MEDS ORDERED: GLUCOSE GEL 15 GRAM TUBE BUCCAL PRN (21:00)
[2017-02-24] MEDS ORDERED: GLUCAGON 1 MG INJ IM PRN (21:00)
[2017-02-24] MEDS ORDERED: GLUCOSE GEL 15 GRAM TUBE PO PRN ×2 (21:00)
[2017-02-24] MEDS ORDERED: DEXTROSE 50% 50 ML SYRINGE IV PRN ×2 (21:00)
--- NOTE | 2017-02-24 21:12 | CONS ---
DATE OF ADMISSION: 02/24/2017 DATE OF CONSULTATION: 02/24/2017 REASON FOR CONSULTATION: Nonoliguric acute kidney injury. HISTORY OF PRESENT ILLNESS: The patient is a pleasant 66-year- old gentleman with past medical history of type 2 diabetes mellitus for about 15 years without known diabetic retinopathy or neuropathy, hypertension, dyslipidemia, and left diabetic great toe nonhealing ulcer, who presents to [facility] for evaluation of fevers. As you may know, he was receiving outpatient IV vancomycin and Levaquin for osteomyelitis, but completed therapy about two weeks ago. He was scheduled for resection of the left great toe but apparently this has not happened at this time. Upon presentation, he was found to have a creatinine of 1.8 mg per dL. Of note, he was found to have a creatinine of 1.63 mg per dL on January 16, and essentially normal renal function prior to that. A renal consultation has been placed to determine the etiology of this gentleman's impaired GFR. ALLERGIES: HE HAS NO KNOWN DRUG ALLERGIES. REVIEW OF SYSTEMS: All review of systems were evaluated and the patient currently denies any nausea, vomiting, diarrhea, dysuria, chest pain or shortness of breath. PAST MEDICAL HISTORY: 1. Type 2 diabetes mellitus for about 15 years without known retinopathy or nephropathy, or neuropathy. 2. Hypertension. 3. Dyslipidemia. 4. Left great toe diabetic foot ulcer/osteomyelitis. OUTPATIENT MEDICATIONS: 1. Lisinopril 20 mg daily. 2. Lantus. 3. Aspirin 81 mg daily. 4. Lisinopril 20 mg daily. 5. Atorvastatin 40 mg daily. 6. Sliding scale insulin. FAMILY HISTORY: Noncontributory at this time. SOCIAL HISTORY: He denies any recreational drug use. PHYSICAL EXAMINATION: VITAL SIGNS: Blood pressure 133/63, O2 sat of 98 percent on room air. Temperature of 97.7, pulse of 83. HEENT: Atraumatic, Normocephalic. CARDIOVASCULAR: S1, S2 regular. PULMONARY: Clear to auscultation. ABDOMEN: Soft, benign, nontender, nondistended. EXTREMITIES: Failed to reveal any edema. NEUROLOGIC: The patient is awake, alert, oriented x3 with no focal deficits. IMPRESSION AND PLAN: 1. Acute kidney injury: I suspect that this patient has developed an episode of acute kidney injury due to decreased effective circulatory volume. His last dose of Vancomycin was about two weeks ago and certainly antibiotic nephrotoxicity remains on the differential, but if his renal function begins to improve in the next 24 hours with IV fluids then clearly this was all a prerenal event. I have held off on ordering a renal ultrasound unless his renal function does not improve in the next 24 hours. We will check urine eosinophils to rule out drug induced interstitial nephritis. He does have 2 plus proteinuria, but proteinuria can be exacerbated in the setting of acute kidney injury. Nonetheless, I will check a urine protein to urine creatinine ratio. Continue to hold his lisinopril for the time being as it can lead to impaired glomerular perfusion. I agree with normal saline for the time being. 2. Osteomyelitis of the left great toe: Will defer management to our podiatry colleagues. Continue antibiotics. Monitor his vancomycin levels closely in the setting of fluctuating renal function. 3. Hypertension: Continue to hold his Lisinopril as stated above as it will impair renal perfusion in the setting of an already impaired GFR. Once his renal function turns the corner, I think we can resume it. In the meantime, I will place him on hydralazine 25 mg p.o. every 8 hours as needed for blood pressure greater than 150. Thank you for allowing us to participate in the care of this gentleman. More recommendations will be made as laboratory data is obtained. Dictated By: Paulino Saravia MD /sd/jett /Document#: [id number]
--- NOTE | 2017-02-24 21:45 | RADRPT ---
PROCEDURE: Renal US. CLINICAL INDICATION: Acute kidney injury. TECHNIQUE: Multiple sonographic images of the kidneys and urinary bladder were obtained. The imag es were reviewed on a PACS workstation. COMPARISON: No prior studies are available for comparison. FINDINGS: The right kidney measures 9.7 cm. The left kidney measures 9.8 cm. There is no renal mass. There is no hydronephrosis. There is no right renal calculus. There is a nonobstructing 0.8 cm calculus in the mid to upper left kidney. Renal parenchymal thickness is normal bilaterally. Both kidneys are hyperechoic consistent with medical renal disease. The perirenal regions are normal with no fluid collection or mass. The urinary bladder is unremarkable. IMPRESSION: 1. Nonobstructing 0.8 cm calculus in the upper left kidney. 2. Bilateral hyperechoic kidneys consistent with medical renal disease. 3. No hydronephrosis. 4. Otherwise normal renal ultrasound. RPTAT: QQ .Mauro Gonsales MD, MD Date Time Electronically viewed and signed by .Mauro Gonsales MD, on 02/24/2017 21:44 .R/
[2017-02-25] MEDS: GUAIFENESIN/CODEINE 5ML CUP PO PRN (00:59)
[2017-02-25] MEDS: ACCU-CHEK XX SCH (02:00)
[2017-02-25 02:48] VITALS: BP 120/59; RESP 16
[2017-02-25] MEDS: SOD CHLORIDE 0.9% 1,000 ML IV SCH ×3 (03:15→23:15)
[2017-02-25 05:30] LABS: BASOPHILS % 0.1 % (0.0-2.0); HEMATOCRIT 26.6 % (42.0-52.0); LYMPHOCYTES # 2.1 10^3/ul (0.8-2.9); LYMPHOCYTES % 15.1 % (15.0-51.0); MEAN CORPUSCULAR HEMOGLOBIN 27.6 pg (29.0-33.0); MEAN CORPUSCULAR HGB CONC 33.8 g/dl (32.0-37.0); MEAN CORPUSCULAR VOLUME 81.6 fl (82.0-101.0); MEAN PLATELET VOLUME 12.2 fl (7.4-10.4); MONOCYTE # 0.9 10^3/ul (0.3-0.9); MONOCYTES % 6.8 % (0.0-11.0); NEUTROPHIL # 10.7 10^3/ul (1.6-7.5); NEUTROPHILS % 77.6 % (39.0-77.0); PLATELET COUNT 156 10^3/UL (140-415); RED BLOOD COUNT 3.26 10^6/ul (4.70-6.10); RED CELL DISTRIBUTION WIDTH 13.7 % (11.5-14.5); WHITE BLOOD COUNT 13.8 10^3/ul (4.8-10.8)
[2017-02-25] MEDS: PANTOPRAZOLE 40 MG INJ IV SCH (05:32)
[2017-02-25 06:08] LABS: ALBUMIN/GLOBULIN RATIO 0.68; BILIRUBIN,INDIRECT 0.6 mg/dl (0-1.1); BILIRUBIN,TOTAL 0.6 mg/dl (0.2-1.3); CALCIUM 7.8 mg/dl (8.4-10.2); CHOL/HDL RATIO 2.3 RATIO; CREATININE 1.11 mg/dl (0.61-1.24); MAGNESIUM 1.4 mg/dl (1.7-2.5); PHOSPHORUS 2.2 mg/dl (2.5-4.9); POTASSIUM 4.1 mmol/L (3.5-5.1); TOTAL PROTEIN 7.4 g/dl (6.1-8.1)
[2017-02-25 06:15] LABS: T3 UPTAKE 50.8 % (23.5-40.5)
[2017-02-25 06:29] LABS: THYROID STIMULATING HORMONE 0.246 MIU/L (0.465-4.680)
[2017-02-25] MEDS: INSULIN ASPART [NOVOLOG] 3 ML PEN SC SCH ×4 (07:45→20:42)
[2017-02-25] MEDS: INSULIN GLARGINE [LANtus] 3 ML PEN SC SCH (07:59)
[2017-02-25 08:26] VITALS: BP 159/70; RESP 18
[2017-02-25] MEDS: ASPIRIN 81 MG TAB PO SCH (08:33)
[2017-02-25] MEDS: METOPROLOL 25 MG TAB PO SCH ×2 (08:34→20:41)
[2017-02-25] MEDS: MEROPENEM 1 GM/50ML(PMX) 50 ML IVPB SCH ×2 (08:34→20:41)
[2017-02-25] MEDS ORDERED: LISINOPRIL 20 MG TAB PO SCH (09:00)
[2017-02-25] MEDS ORDERED: INFLUENZA VIRUS VACCINE 0.5 ML SYG IM* ONE (09:00)
[2017-02-25] MEDS: AZITHROMYCIN 500MG/NS (PMX) 250 ML IVPB SCH (09:52)
[2017-02-25 10:21] VITALS: BP 142/70; PULSE 88
[2017-02-25] MEDS ORDERED: MAGNESIUM SULFATE 2 GM/50 ML 50 ML IVPB ONE (10:30)
[2017-02-25] MEDS ORDERED: MAGNESIUM SULFATE 1 GM/D5W 100 ML IVPB ONE (11:00)
--- NOTE | 2017-02-25 12:43 | PN ---
Date/Time of Note Date/Time of Note DATE: 02/25/17 TIME: 12:38 Assessment/Plan VTE Prophylaxis VTE Prophylaxis Intervention: SCD's Lines/Catheters IV Catheter Type (from Nrs): Peripheral IV Urinary Cath still in place: No Assessment/Plan Chief Complaint/Hosp Course Impression and plan 1. Left first distal phalanx osteomyelitis. Of note patient did finish antibiotic regimen roughly 2 weeks ago. Imaging this time shows worsening of left first distal phalanx.continue with ID recommendations. awaiting podiatry eval 2. Suspect acute bronchitis. continue on abx. 3. Diabetes. Will start insulin regimen. Adjust as needed. 4. Essential hypertension. Will provide with antihypertensives and adjust as needed 5. Anemia likely of chronic disease. Remain stable at present. Will monitor for now. 6. History of severe erosive esophagitis and gastritis. Continue on PPI medication 7. AK I. 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 dispo/plan. cont on abx. await podiatry eval Discussed plan of care with Dr. Strong Problems: Subjective 24 Hr Interval Summary Free Text/Dictation no s/s of distress. denies any pain Exam/Review of Systems Vital Signs Vitals Vital Signs Date Time Temp Pulse Resp B/P Pulse Ox O2 Delivery O2 Flow Rate FiO2 02/25/17 10:21 88 142/70 02/25/17 08:26 98.0 18 93 02/24/17 18:28 Room Air Intake and Output 02/24/17 02/24/17 02/25/17 15:00 23:00 07:00 Intake Total 550 ml 1520 ml Output Total 1000 ml Balance 550 ml 520 ml Exam Constitutional: alert, oriented Psych: no complaints Head: normocephalic Respiratory: other (No obvious with wheezing or rhonchi) Cardiovascular: regular rate and rhythm Gastrointestinal: non-tender, soft Musculoskeletal: other (Noted with left foot first distal phalanx with ulcerative wound) Neurological: BACK END DEVELOPER II-XII intact, nl mental status, nl speech Results Result Diagram: 02/25/17 0446 02/25/17 0446 Results 24 hrs Laboratory Tests Test 02/24/17 14:00 02/24/17 14:15 02/24/17 15:15 02/24/17 16:00 White Blood Count 10.5 # Red Blood Count 3.84 L Hemoglobin 10.4 L Hematocrit 31.3 L Mean Corpuscular Volume 81.5 L Mean Corpuscular Hemoglobin 27.1 L Mean Corpuscular Hemoglobin Concent 33.2 Red Cell Distribution Width 13.5 Platelet Count 186 # Mean Platelet Volume 11.3 H Neutrophils % 78.8 H Lymphocytes % 12.3 L Monocytes % 8.5 Eosinophils % 0.0 Basophils % 0.0 Nucleated Red Blood Cells % 0.0 Neutrophils # 8.3 H Lymphocytes # 1.3 Monocytes # 0.9 Eosinophils # 0.0 Basophils # 0.0 Nucleated Red Blood Cells # 0.0 Prothrombin Time 14.3 H Prothrombin Time Ratio 1.1 INR International Normalized Ratio 1.11 Activated Partial Thromboplast Time 29.2 Sodium Level 139 Potassium Level 4.4 Chloride Level 106 Carbon Dioxide Level 21 Anion Gap 16 Blood Urea Nitrogen 39 H Creatinine 1.80 H Glucose Level 195 Lactic Acid Level 1.1 1.2 Calcium Level 9.2 Total Bilirubin 0.5 Direct Bilirubin 0.00 Indirect Bilirubin 0.5 Aspartate Amino Transf (AST/SGOT) 58 H Alanine Aminotransferase (ALT/SGPT) 64 Alkaline Phosphatase 140 H Troponin I < 0.012 Total Protein 8.8 H Albumin 4.2 Globulin 4.60 H Albumin/Globulin Ratio 0.91 Urine Color YELLOW Urine Clarity SLIGHTLY CLOUDY A Urine pH 5.0 Urine Specific [place] 1.016 Urine Ketones TRACE A Urine Nitrite NEGATIVE Urine Bilirubin NEGATIVE Urine Urobilinogen NEGATIVE Urine Leukocyte Esterase NEGATIVE Urine Microscopic RBC 1 Urine Microscopic WBC 2 Urine Mucus FEW A Urine Hemoglobin NEGATIVE Urine Glucose 1+ H Urine Total Protein 2+ H Hemoglobin A1c 8.1 H Test 02/24/17 17:44 02/24/17 18:03 02/24/17 20:42 02/24/17 21:00 Bedside Glucose 95 66 L 72 Lactic Acid Level 1.6 Test 02/24/17 21:16 02/24/17 23:05 02/25/17 04:46 02/25/17 07:45 Bedside Glucose 80 80 97 White Blood Count 13.8 #H Red Blood Count 3.26 L Hemoglobin 9.0 L Hematocrit 26.6 L Mean Corpuscular Volume 81.6 L Mean Corpuscular Hemoglobin 27.6 L Mean Corpuscular Hemoglobin Concent 33.8 Red Cell Distribution Width 13.7 Platelet Count 156 Mean Platelet Volume 12.2 H Neutrophils % 77.6 H Lymphocytes % 15.1 Monocytes % 6.8 Eosinophils % 0.0 Basophils % 0.1 Nucleated Red Blood Cells % 0.0 Neutrophils # 10.7 H Lymphocytes # 2.1 Monocytes # 0.9 Eosinophils # 0.0 Basophils # 0.0 Nucleated Red Blood Cells # 0.0 Sodium Level 139 Potassium Level 4.1 Chloride Level 113 H Carbon Dioxide Level 21 Anion Gap 9 # Blood Urea Nitrogen 26 #H Creatinine 1.11 Glucose Level 89 # Hemoglobin A1c 8.2 H Calcium Level 7.8 L Phosphorus Level 2.2 L Magnesium Level 1.4 L Total Bilirubin 0.6 Direct Bilirubin 0.00 Indirect Bilirubin 0.6 Aspartate Amino Transf (AST/SGOT) 58 H Alanine Aminotransferase (ALT/SGPT) 59 Alkaline Phosphatase 126 H Total Protein 7.4 # Albumin 3.0 #L Globulin 4.40 H Albumin/Globulin Ratio 0.68 Triglycerides Level 56 Cholesterol Level 60 L LDL Cholesterol, Calculated 23 HDL Cholesterol 26 L Cholesterol/HDL Ratio 2.3 Thyroid Stimulating Hormone (TSH) 0.246 L Free Thyroxine Index 2.34 Thyroxine (T4) 4.6 L Triiodothyronine (T3) Uptake 50.8 H Test 02/25/17 08:00 02/25/17 11:17 Urine Eosinophils % 0.0 Urine Random Creatinine 57.18 Bedside Glucose 186 Medications Medications Current Medications Aspirin (Aspirin) 81 mg DAILY PO Last administered on 02/25/17 08:33; Admin Dose 81 MG; Start 02/25/17 at 09:00 Atorvastatin Calcium (Lipitor) 40 mg HS PO Last administered on 02/24/17 20:55 ; Admin Dose 40 MG; Start 02/24/17 at 21:00 Metoprolol Tartrate 25 mg 25 mg BID PO Last administered on 02/25/17 08:34; Admin Dose 25 MG; Start 02/24/17 at 21:00 Sodium Chloride (NS) 1,000 ml @ 100 mls/hr Q10H IV Last administered on 06:45; Admin Dose 100 MLS/HR; Start 02/24/17 at 16:30; Stop 02/26/17 at 09: 14 Ondansetron HCl (Zofran Inj) 4 mg Q6H PRN IV NAUSEA AND/OR VOMITING Last administered on 02/25/17 00:40; Admin Dose 4 MG; Start 02/24/17 at 16:30 Acetaminophen (Tylenol Tab) 650 mg Q6H PRN PO PAIN LEVEL 1-3 OR FEVER; Start at 16:30 Acetaminophen (Tylenol Supp) 650 mg Q6H PRN [place] PAIN LEVEL 1-3 OR FEVER; Start 02/24/17 at 16:30 Acetaminophen/ Hydrocodone Bitart ([place] (5/325)) 1 tab Q6H PRN PO MODERATE PAIN LEVEL 4-6; Start 02/24/17 at 16:30 Acetaminophen/ Hydrocodone Bitart ([place] (5/325)) 2 tab Q6H PRN PO SEVERE PAIN LEVEL 7-10; Start 02/24/17 at 16:30 Morphine Sulfate (morphine) 2 mg Q4H PRN IV SEVERE PAIN LEVEL 7-10; Start 02/24 at 16:30 Docusate Sodium (Colace) 100 mg Q12H PRN PO CONSTIPATION; Start 02/24/17 at 16: 30 Magnesium Hydroxide (Milk Of Mag) 30 ml DAILY PRN PO CONSTIPATION; Start at 16:30 Bisacodyl (Dulcolax Supp) 10 mg DAILY PRN [place] CONSTIPATION; Start 02/24/17 at 16 :30 Pantoprazole (Protonix Iv) 40 mg DAILY@06 IV Last administered on 02/25/17 05: 32; Admin Dose 40 MG; Start 02/25/17 at 06:00 Diagnostic Test (Pha) (Accu-Chek) 1 ea 02 XX ; Start 02/25/17 at 02:00 Insulin Glargine 9 unit 9 unit DAILY@08 SC Last administered on 02/25/17 07:59 ; Admin Dose 9 UNIT; Start 02/25/17 at 08:00 Azithromycin 250 ml @ 250 mls/hr DAILY IVPB Last administered on 02/25/17 09: 52; Admin Dose 250 MLS/HR; Start 02/24/17 at 18:00 Meropenem/Sodium Chloride (Merrem 1 Gm/50 ml (Pmx)) 50 ml @ 100 mls/hr Q12 IVPB Last administered on 02/25/17 08:34; Admin Dose 100 MLS/HR; Start at 19:00 Miscellaneous Information (Pending Santyl Order For Wound Care) This patient contreras... PRN PRN XX WOUND CARE; Start 02/24/17 at 19:00 Hydralazine HCl (Apresoline) 25 mg Q8H PRN PO ELEVATED SYSTOLIC BP; Start 02/24 at 19:30 Guaifenesin/ Codeine Phosphate (Robitussin Ac Liquid Cup) 10 ml Q4H PRN PO COUGH Last administered on 02/25/17t 00:59; Admin Dose 10 ML; Start 02/24/17 at 20:30 Miscellaneous Information 1 ea NOTE XX ; Start 02/24/17 at 21:00 Glucose (Glutose) 15 gm Q15M PRN PO DECREASED GLUCOSE; Start 02/24/17 at 21:00 Glucose (Glutose) 22.5 gm Q15M PRN PO DECREASED GLUCOSE; Start 02/24/17 at 21: 00 Dextrose (D50w Syringe) 25 ml Q15M PRN IV DECREASED GLUCOSE; Start 02/24/17 at 21:00 Dextrose (D50w Syringe) 50 ml Q15M PRN IV DECREASED GLUCOSE; Start 02/24/17 at 21:00 Glucagon (Glucagen) 1 mg Q15M PRN IM DECREASED GLUCOSE; Start 02/24/17 at 21:00 Glucose 15 gm 15 gm Q15M PRN BUCCAL DECREASED GLUCOSE; Start 02/24/17 at 21:00 Vancomycin HCl/ Sodium Chloride (Vancocin/NS) 150 ml @ 75 mls/hr Q12H IVPB ; Start 02/25/17 at 13:00 Miscellaneous Information (*Rx Drug Level Order Reminder*) VANCOMYCIN TROUGH 10 / 2 AT 1200 ONCE ONCE XX ; Start 02/26/17 at 12:00; Stop 02/26/17 at 12:01 CLARIBEL OCHOA Feb 25, 2017 12:43
[2017-02-25] MEDS: VANCOMYCIN 750 MG in SOD CHLORIDE 0.9% 150 ML IVPB SCH (13:22)
--- NOTE | 2017-02-25 14:42 | CONS ---
DATE OF ADMISSION: 02/24/2017 DATE OF CONSULTATION: 02/24/2017 REASON FOR CONSULTATION: Antibiotic management. Nik Horvath is a 66-year-old male with numerous problems, who comes in with left first distal phalanx osteomyelitis. PAST PROBLEMS: 1. Adult-onset diabetes mellitus, insulin dependent. 2. GI bleed. 3. Hypertension. 4. Alcohol abuse. 5. Severe erosive gastritis and esophagitis. The patient came into [facility] with increasing weakness and cough which has been going on for 3 days prior to admission. He was not on any antibiotics. He was previously discharged from [facility] on January 05 for osteomyelitis of his left foot. He was sent home on antibiotics and finished his antibiotic regimen 2 weeks ago. He again has left first distal phalanx osteomyelitis. Imaging at this time shows worsening of left first distal phalanx. PAST MEDICAL HISTORY: Operations as outlined. FAMILY HISTORY: Noncontributory. SOCIAL HISTORY: Does not smoke, drink, or abuse drugs. He is a previous alcohol abuser. MEDICATION: Per chart. REVIEW OF SYSTEMS: Noncontributory. PHYSICAL EXAMINATION: GENERAL APPEARANCE: The patient is a well-developed, well- nourished male, alert, responsive, in no acute distress. VITAL SIGNS: Stable. He is afebrile. SKIN: Without generalized rash. HEENT: Within normal limits. NECK: Supple. Lymph nodes nonpalpable. CHEST: Decreased breath sounds at the bases. HEART: Without murmur or gallop. ABDOMEN: Soft. Nontender, without organosplenomegaly or masses. EXTREMITIES: Without cyanosis, clubbing, or edema. RECTAL/GENITAL: Exam is deferred. NEUROLOGICAL: No focal neurological abnormalities. IMPRESSION AND PLAN: The patient currently presents with osteomyelitis. He is started on vancomycin. His white count today is 13.8, BUN and creatinine 26/1.1. Urine is negative for leukocyte esterase and for nitrites. A foot x-ray shows osteomyelitis of the first distal phalanx, worse than previously seen. His influenza A and B are negative. His urine culture is negative. The patient obviously has osteomyelitis of the first distal phalanx. We will continue him on vancomycin and probably on Levaquin. I will dictate my findings to the hospitalists. Dictated By: Alfredo Arroyo MD JD/sd/hieu /Document#: [id number]
--- NOTE | 2017-02-25 14:44 | PN ---
Date/Time of Note Date/Time of Note DATE: 02/25/17 TIME: 14:39 Assessment/Plan VTE Prophylaxis VTE Prophylaxis Intervention: SCD's Lines/Catheters IV [facility]ter Type (from [facility]): Peripheral IV Urinary Cath still in place: No Assessment/Plan Chief Complaint/Hosp Course 1. CHARISSE: likely pre-renal in nature and resolving with hydration. No outflow obstruction noted. Continue IVF x 1-2 more liters then will d/c. Will check Up/ Ucr ratio to quantify proteinuria. Hold ACEi for now in case contrast imaging needed. 2. HTN: CPM, hold ACEi for now due to above and until we see where renal function settles out. 3. Hypomagnesemia: 3 grams mag sulfate today 4. Hypophosphatemia: 500 mg po kphos. 5. Osteomyelitis: Left first distal phalanx, as per ID and podiatry colleagues. Meds reviewed. Discussed with RN. Thank you Problems: Subjective 24 Hr Interval Summary Free Text/Dictation Patient being seen for CHARISSE. No overnight events noted. Constitutional: no complaints Eyes: no complaints ENT: no complaints Respiratory: no complaints Cardiovascular: no complaints Gastrointestinal: no complaints Neurologic: no complaints Endocrine: no complaints Psychological: no complaints Immunologic: no complaints Exam/Review of Systems Vital Signs Vitals Vital Signs Date Time Temp Pulse Resp B/P Pulse Ox O2 Delivery O2 Flow Rate FiO2 02/25/17 10:21 88 142/70 02/25/17 08:26 98.0 18 93 02/24/17 18:28 Room Air Intake and Output 02/24/17 02/24/17 02/25/17 15:00 23:00 07:00 Intake Total 550 ml 1520 ml Output Total 1000 ml Balance 550 ml 520 ml Exam Constitutional: alert, oriented Psych: no complaints Head: normocephalic Eyes: nl conjunctiva ENMT: nl external ears & nose Neck: supple Respiratory: clear to auscultation Cardiovascular: regular rate and rhythm Gastrointestinal: soft Musculoskeletal: nl extremities to inspection Extremities: other 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 Skin: nl turgor Results Result Diagram: 02/25/17 0446 02/25/17 0446 Results 24 hrs Laboratory Tests Test 02/24/17 15:15 02/24/17 16:00 02/24/17 17:44 02/24/17 18:03 Lactic Acid Level 1.2 1.6 Hemoglobin A1c 8.1 H Bedside Glucose 95 Test 02/24/17 20:42 02/24/17 21:00 02/24/17 21:16 02/24/17 23:05 Bedside Glucose 66 L 72 80 80 Test 02/25/17 04:46 02/25/17 07:45 02/25/17 08:00 02/25/17 11:17 White Blood Count 13.8 #H Red Blood Count 3.26 L Hemoglobin 9.0 L Hematocrit 26.6 L Mean Corpuscular Volume 81.6 L Mean Corpuscular Hemoglobin 27.6 L Mean Corpuscular Hemoglobin Concent 33.8 Red Cell Distribution Width 13.7 Platelet Count 156 Mean Platelet Volume 12.2 H Neutrophils % 77.6 H Lymphocytes % 15.1 Monocytes % 6.8 Eosinophils % 0.0 Basophils % 0.1 Nucleated Red Blood Cells % 0.0 Neutrophils # 10.7 H Lymphocytes # 2.1 Monocytes # 0.9 Eosinophils # 0.0 Basophils # 0.0 Nucleated Red Blood Cells # 0.0 Sodium Level 139 Potassium Level 4.1 Chloride Level 113 H Carbon Dioxide Level 21 Anion Gap 9 # Blood Urea Nitrogen 26 #H Creatinine 1.11 Glucose Level 89 # Hemoglobin A1c 8.2 H Calcium Level 7.8 L Phosphorus Level 2.2 L Magnesium Level 1.4 L Total Bilirubin 0.6 Direct Bilirubin 0.00 Indirect Bilirubin 0.6 Aspartate Amino Transf (AST/SGOT) 58 H Alanine Aminotransferase (ALT/SGPT) 59 Alkaline Phosphatase 126 H Total Protein 7.4 # Albumin 3.0 #L Globulin 4.40 H Albumin/Globulin Ratio 0.68 Triglycerides Level 56 Cholesterol Level 60 L LDL Cholesterol, Calculated 23 HDL Cholesterol 26 L Cholesterol/HDL Ratio 2.3 Thyroid Stimulating Hormone (TSH) 0.246 L Free Thyroxine Index 2.34 Thyroxine (T4) 4.6 L Triiodothyronine (T3) Uptake 50.8 H Bedside Glucose 97 186 Urine Eosinophils % 0.0 Urine Random Creatinine 57.18 Medications Medications Current Medications Aspirin (Aspirin) 81 mg DAILY PO Last administered on 02/25/17 08:33; Admin Dose 81 MG; Start 02/25/17 at 09:00 Atorvastatin Calcium (Lipitor) 40 mg HS PO Last administered on 02/24/17 20:55 ; Admin Dose 40 MG; Start 02/24/17 at 21:00 Metoprolol Tartrate 25 mg 25 mg BID PO Last administered on 02/25/17 08:34; Admin Dose 25 MG; Start 02/24/17 at 21:00 Sodium Chloride (NS) 1,000 ml @ 100 mls/hr Q10H IV Last administered on 06:45; Admin Dose 100 MLS/HR; Start 02/24/17 at 16:30; Stop 02/26/17 at 09: 14 Ondansetron HCl (Zofran Inj) 4 mg Q6H PRN IV NAUSEA AND/OR VOMITING Last administered on 02/25/17 00:40; Admin Dose 4 MG; Start 02/24/17 at 16:30 Acetaminophen (Tylenol Tab) 650 mg Q6H PRN PO PAIN LEVEL 1-3 OR FEVER; Start at 16:30 Acetaminophen (Tylenol Supp) 650 mg Q6H PRN [place] PAIN LEVEL 1-3 OR FEVER; Start 02/24/17 at 16:30 Acetaminophen/ Hydrocodone Bitart ([place] (5/325)) 1 tab Q6H PRN PO MODERATE PAIN LEVEL 4-6; Start 02/24/17 at 16:30 Acetaminophen/ Hydrocodone Bitart ([place] (5/325)) 2 tab Q6H PRN PO SEVERE PAIN LEVEL 7-10; Start 02/24/17 at 16:30 Morphine Sulfate (morphine) 2 mg Q4H PRN IV SEVERE PAIN LEVEL 7-10; Start 02/24 at 16:30 Docusate Sodium (Colace) 100 mg Q12H PRN PO CONSTIPATION; Start 02/24/17 at 16: 30 Magnesium Hydroxide (Milk Of Mag) 30 ml DAILY PRN PO CONSTIPATION; Start at 16:30 Bisacodyl (Dulcolax Supp) 10 mg DAILY PRN [place] CONSTIPATION; Start 02/24/17 at 16 :30 Pantoprazole (Protonix Iv) 40 mg DAILY@06 IV Last administered on 02/25/17 05: 32; Admin Dose 40 MG; Start 02/25/17 at 06:00 Diagnostic Test (Pha) (Accu-Chek) 1 ea 02 XX ; Start 02/25/17 at 02:00 Insulin Glargine 9 unit 9 unit DAILY@08 SC Last administered on 02/25/17 07:59 ; Admin Dose 9 UNIT; Start 02/25/17 at 08:00 Azithromycin 250 ml @ 250 mls/hr DAILY IVPB Last administered on 02/25/17 09: 52; Admin Dose 250 MLS/HR; Start 02/24/17 at 18:00 Meropenem/Sodium Chloride (Merrem 1 Gm/50 ml (Pmx)) 50 ml @ 100 mls/hr Q12 IVPB Last administered on 02/25/17 08:34; Admin Dose 100 MLS/HR; Start at 19:00 Miscellaneous Information (Pending [facility]yl Order For Wound Care) This patient contreras... PRN PRN XX WOUND CARE; Start 02/24/17 at 19:00 Hydralazine HCl (Apresoline) 25 mg Q8H PRN PO ELEVATED SYSTOLIC BP; Start 02/24 at 19:30 Guaifenesin/ Codeine Phosphate (Robitussin Ac Liquid Cup) 10 ml Q4H PRN PO COUGH Last administered on 02/25/17 00:59; Admin Dose 10 ML; Start 02/24/17 at 20:30 Miscellaneous Information 1 ea NOTE XX ; Start 02/24/17 at 21:00 Glucose (Glutose) 15 gm Q15M PRN PO DECREASED GLUCOSE; Start 02/24/17 at 21:00 Glucose (Glutose) 22.5 gm Q15M PRN PO DECREASED GLUCOSE; Start 02/24/17 at 21: 00 Dextrose (D50w Syringe) 25 ml Q15M PRN IV DECREASED GLUCOSE; Start 02/24/17 at 21:00 Dextrose (D50w Syringe) 50 ml Q15M PRN IV DECREASED GLUCOSE; Start 02/24/17 at 21:00 Glucagon (Glucagen) 1 mg Q15M PRN IM DECREASED GLUCOSE; Start 02/24/17 at 21:00 Glucose 15 gm 15 gm Q15M PRN BUCCAL DECREASED GLUCOSE; Start 02/24/17 at 21:00 Vancomycin HCl/ Sodium Chloride (Vancocin/NS) 150 ml @ 75 mls/hr Q12H IVPB Last administered on 02/25/17 13:22; Admin Dose 75 MLS/HR; Start 02/25/17 at 13 :00 Miscellaneous Information (*Rx Drug Level Order Reminder*) VANCOMYCIN TROUGH AT 1200 ONCE ONCE XX ; Start 02/26/17 at 12:00; Stop 02/26/17 at 12:01 Sodium Phosphate (Kphos Neutral) 500 mg ONCE ONCE PO ; Start 02/25/17 at 15:00 ; Stop 02/25/17 at 15:01 MARYBEL OLIVIER MD Feb 25, 2017 14:44
[2017-02-25] MEDS ORDERED: SOD PHOS MONO/DIBAS 250 MG TAB PO ONE (15:00)
[2017-02-25 15:43] LABS: PROTEIN/CREAT RATIO 1.5 RATIO
[2017-02-25 16:29] VITALS: BP 143/65; RESP 18
[2017-02-25] MEDS ORDERED: VANCOMYCIN 750 MG in SOD CHLORIDE 0.9% 150 ML IVPB SCH (17:00)
--- NOTE | 2017-02-25 17:14 | CONS ---
Date/Time of Note Date/Time of Note DATE: 02/25/17 TIME: 17:07 Assessment/Plan Assessment/Plan Chief Complaint/Hosp Course ID PROGRESS NOTE CURRENT ABX: DAY #2 => Vanco IV + Ceftriaxone + Azith 24H INTERVAL SUMMARY * A/A/O, No fever, WBC elevated today, A1C @ 8.1% * Admit w/ Fevers + generalized weakness x 4 days at home, non-healing foot ulcer ..."Whenever I have fever + weakness at home, it is because my bone infection is back." => Hx of Osteomyelitis Left Great Toe -> s/p full course ABX * (+)Bronchial cough present INFLUENZA A & B BY EIA Final INFLU A&B BY EIA INFLUENZA A NEGATIVE (Ref Range Neg) INFLUENZA B NEGATIVE (Ref Range Neg) * 02/24/17 Left Foot X-Ray: IMPRESSION: 1. Osteomyelitis of the first distal phalanx, worse than seen previously. 2. Atherosclerosis.3. No other new abnormality. * 02/24/17 CXR: IMPRESSION:1. Left arm PICC line removed. 2. Clear lungs.3. Mild cardiomegaly. Physical Exam Physical Exam Constitutional: alert, oriented, well developed HEENT: Unremarkable Neck: Supple, full ROM Respiratory: clear to auscultation, normal air movement Cardiovascular: nl pulses, regular rate and rhythm Gastrointestinal: Soft, NT Extremities: Left foot DFU over great toe and metatarsal foot, with necrosis areas Neurological: nl mental status, nl speech, nl strength ID ASSESSMENT 66 yo M PMhx HTN, HLD, DM-Type 1 w/peripheral neuropathy, GERD, PAD, ETOH abuse admit with: 1. SIRS on admission w/TMax 99.8, ESR 98, CRP 1.7, left shift per Diff Neuts 78.8%, tachycardia => #2 * WBC elevated today @ 13.+ 2. Recurrent acute left foot/great toe/1st metatarsal diabetic foot infection with osteomyelitis * 02/24/17 Left Foot X-Ray: IMPRESSION: 1. Osteomyelitis of the first distal phalanx, worse than seen previously. 2. Atherosclerosis.3. No other new abnormality. * 12/29/16 MRI:IMPRESSION:1. Osteomyelitis of the distal phalanx of the left great toe, with contiguous soft tissue ulcerations. 2. Possible early osteomyelitis in the distal aspect of the first proximal phalanx. * WOUND CX: 02/24/17 Left Great Toe: GRAM STAIN Final EPITHELIAL CELLS RARE, NO ORGANISM SEEN * WOUND Cx: 12/28 TOE WOUND CULTURE * Organism 1 PSEUDOMONAS AERUGINOSA * Organism 2 ACINETOBACTER BAUMANNII * Organism 3 ENTEROCOCCUS SPECIES * Organism 4 DIPTHEROIDS = CORYNEBACTERIUM SPECIES 3. Diabetes w/complicated diabetic peripheral neuropathy * A1C = 8.1 * 12/29/16 MRI: Early neuropathic changes in the left foot. 4. Peripheral arterial disease * 12/31 BLEXT Arterial Duplex: 1. No evidence of hemodynamically significant arterial stenosis or occlusion in the bilateral lower extremities. 2. Bilateral atherosclerotic calcifications. * Atherosclerosis of the aorta 5. Acute renal injury on CKD 6. Acute bronchitis w/cough -> CXR 02/24/17 = Lungs Clear 7. GERD w/Hx of GIB 2014 -> EGD 10/05/15: Severe ulcerated esophagitis distal third of esophagus likely source of bleeding. Small hiatal hernia. 8. Hx of ETOH 9. HTN 10. HLD ( )MRSA Nares -> pending CURRENT ABX: DAY #2 => Vanco IV + Ceftriaxone + Azith ID RECOMMENDATIONS 1. Continue Vanco IV + Ceftriaxone -- DC Azith after Dose #3 (tomorrow) 2. APC consult 3. f/u on MRSA Nares and Great Toe wound cx pending . Problems: Consultation Date/Type/Reason Admit Date/Time Feb 24, 2017 at 15:05 Exam/Review of Systems Vital Signs Vitals Vital Signs Date Time Temp Pulse Resp B/P Pulse Ox O2 Delivery O2 Flow Rate FiO2 02/25/17 16:29 99.0 85 18 143/65 94 02/24/17 18:28 Room Air Intake and Output 02/24/17 02/24/17 02/25/17 15:00 23:00 07:00 Intake Total 550 ml 1520 ml Output Total 1000 ml Balance 550 ml 520 ml Results Result Diagram: 02/25/17 0446 02/25/17 0446 Results 24 hrs Laboratory Tests Test 02/24/17 17:44 02/24/17 18:03 02/24/17 20:42 02/24/17 21:00 Bedside Glucose 95 66 L 72 Lactic Acid Level 1.6 Test 02/24/17 21:16 02/24/17 23:05 02/25/17 04:46 02/25/17 07:45 Bedside Glucose 80 80 97 White Blood Count 13.8 #H Red Blood Count 3.26 L Hemoglobin 9.0 L Hematocrit 26.6 L Mean Corpuscular Volume 81.6 L Mean Corpuscular Hemoglobin 27.6 L Mean Corpuscular Hemoglobin Concent 33.8 Red Cell Distribution Width 13.7 Platelet Count 156 Mean Platelet Volume 12.2 H Neutrophils % 77.6 H Lymphocytes % 15.1 Monocytes % 6.8 Eosinophils % 0.0 Basophils % 0.1 Nucleated Red Blood Cells % 0.0 Neutrophils # 10.7 H Lymphocytes # 2.1 Monocytes # 0.9 Eosinophils # 0.0 Basophils # 0.0 Nucleated Red Blood Cells # 0.0 Sodium Level 139 Potassium Level 4.1 Chloride Level 113 H Carbon Dioxide Level 21 Anion Gap 9 # Blood Urea Nitrogen 26 #H Creatinine 1.11 Glucose Level 89 # Hemoglobin A1c 8.2 H Calcium Level 7.8 L Phosphorus Level 2.2 L Magnesium Level 1.4 L Total Bilirubin 0.6 Direct Bilirubin 0.00 Indirect Bilirubin 0.6 Aspartate Amino Transf (AST/SGOT) 58 H Alanine Aminotransferase (ALT/SGPT) 59 Alkaline Phosphatase 126 H Total Protein 7.4 # Albumin 3.0 #L Globulin 4.40 H Albumin/Globulin Ratio 0.68 Triglycerides Level 56 Cholesterol Level 60 L LDL Cholesterol, Calculated 23 HDL Cholesterol 26 L Cholesterol/HDL Ratio 2.3 Thyroid Stimulating Hormone (TSH) 0.246 L Free Thyroxine Index 2.34 Thyroxine (T4) 4.6 L Triiodothyronine (T3) Uptake 50.8 H Test 02/25/17 08:00 02/25/17 11:17 02/25/17 16:53 Urine Eosinophils % 0.0 Urine Random Creatinine 57.16 Urine Protein/Creatinine Ratio 1.50 Urine Total Protein 86.0 H Bedside Glucose 186 210 Medications Medications Current Medications Aspirin (Aspirin) 81 mg DAILY PO Last administered on 02/25/17 08:33; Admin Dose 81 MG; Start 02/25/17 at 09:00 Atorvastatin Calcium (Lipitor) 40 mg HS PO Last administered on 02/24/17 20:55 ; Admin Dose 40 MG; Start 02/24/17 at 21:00 Metoprolol Tartrate 25 mg 25 mg BID PO Last administered on 02/25/17 08:34; Admin Dose 25 MG; Start 02/24/17 at 21:00 Sodium Chloride (NS) 1,000 ml @ 100 mls/hr Q10H IV Last administered on 06:45; Admin Dose 100 MLS/HR; Start 02/24/17 at 16:30; Stop 02/26/17 at 09: 14 Ondansetron HCl (Zofran Inj) 4 mg Q6H PRN IV NAUSEA AND/OR VOMITING Last administered on 02/25/17 00:40; Admin Dose 4 MG; Start 02/24/17 at 16:30 Acetaminophen (Tylenol Tab) 650 mg Q6H PRN PO PAIN LEVEL 1-3 OR FEVER; Start at 16:30 Acetaminophen (Tylenol Supp) 650 mg Q6H PRN [place] PAIN LEVEL 1-3 OR FEVER; Start 02/24/17 at 16:30 Acetaminophen/ Hydrocodone Bitart ([place] (5/325)) 1 tab Q6H PRN PO MODERATE PAIN LEVEL 4-6; Start 02/24/17 at 16:30 Acetaminophen/ Hydrocodone Bitart ([place] (5/325)) 2 tab Q6H PRN PO SEVERE PAIN LEVEL 7-10; Start 02/24/17 at 16:30 Morphine Sulfate (morphine) 2 mg Q4H PRN IV SEVERE PAIN LEVEL 7-10; Start 02/24 at 16:30 Docusate Sodium (Colace) 100 mg Q12H PRN PO CONSTIPATION; Start 02/24/17 at 16: 30 Magnesium Hydroxide (Milk Of Mag) 30 ml DAILY PRN PO CONSTIPATION; Start at 16:30 Bisacodyl (Dulcolax Supp) 10 mg DAILY PRN [place] CONSTIPATION; Start 02/24/17 at 16 :30 Pantoprazole (Protonix Iv) 40 mg DAILY@06 IV Last administered on 02/25/17 05: 32; Admin Dose 40 MG; Start 02/25/17 at 06:00 Diagnostic Test (Pha) (Accu-Chek) 1 ea 02 XX ; Start 02/25/17 at 02:00 Insulin Glargine 9 unit 9 unit DAILY@08 SC Last administered on 02/25/17 07:59 ; Admin Dose 9 UNIT; Start 02/25/17 at 08:00 Azithromycin 250 ml @ 250 mls/hr DAILY IVPB Last administered on 02/25/17 09: 52; Admin Dose 250 MLS/HR; Start 02/24/17 at 18:00 Meropenem/Sodium Chloride (Merrem 1 Gm/50 ml (Pmx)) 50 ml @ 100 mls/hr Q12 IVPB Last administered on 02/25/17 08:34; Admin Dose 100 MLS/HR; Start at 19:00 Misc[facility] This patient contreras... PRN PRN XX WOUND CARE; Start 02/24/17 at 19:00 Hydralazine HCl (Apresoline) 25 mg Q8H PRN PO ELEVATED SYSTOLIC BP; Start 02/24 at 19:30 Guaifenesin/ Codeine Phosphate (Robitussin Ac Liquid Cup) 10 ml Q4H PRN PO COUGH Last administered on 02/25/17 00:59; Admin Dose 10 ML; Start 02/24/17 at 20:30 Miscellaneous Information 1 ea NOTE XX ; Start 02/24/17 at 21:00 Glucose (Glutose) 15 gm Q15M PRN PO DECREASED GLUCOSE; Start 02/24/17 at 21:00 Glucose (Glutose) 22.5 gm Q15M PRN PO DECREASED GLUCOSE; Start 02/24/17 at 21: 00 Dextrose (D50w Syringe) 25 ml Q15M PRN IV DECREASED GLUCOSE; Start 02/24/17 at 21:00 Dextrose (D50w Syringe) 50 ml Q15M PRN IV DECREASED GLUCOSE; Start 02/24/17 at 21:00 Glucagon (Glucagen) 1 mg Q15M PRN IM DECREASED GLUCOSE; Start 02/24/17 at 21:00 Glucose 15 gm 15 gm Q15M PRN BUCCAL DECREASED GLUCOSE; Start 02/24/17 at 21:00 Vancomycin HCl/ Sodium Chloride (Vancocin/NS) 150 ml @ 75 mls/hr Q12H IVPB Last administered on 02/25/17 13:22; Admin Dose 75 MLS/HR; Start 02/25/17 at 13 :00 Miscellaneous Information (*Rx Drug Level Order Reminder*) VANCOMYCIN TROUGH 10 / 2 AT 1200 ONCE ONCE XX ; Start 02/26/17 at 12:00; Stop 02/26/17 at 12:01 BHARAT LEUNG NP Feb 25, 2017 17:14
[2017-02-25] MEDS: ATORVASTATIN 40 MG TAB PO SCH (20:41)
[2017-02-25 20:46] VITALS: BP 153/66; RESP 16
[2017-02-25 21:41] VITALS: BP 150/90; PULSE 90
--- NOTE | 2017-02-25 23:44 | CONS ---
Date/Time of Note Date/Time of Note DATE: 02/25/17 TIME: 23:44 Assessment/Plan Assessment/Plan Problems: (1) Foot pain Status: Acute (2) Diabetes, polyneuropathy (3) Peripheral vascular disease (4) Charcot's joint, left ankle and foot (5) Gangrene of toe (6) Osteomyelitis of left foot Additional Assessment/Plan Condition is chronic; will monitor; no surgery recommended at this time. Would like to have patient go through HBOT. Monitor in house. Continue IVAbx. Will follow. Thank you again for involving me in the care of this patient. If you have any questions regarding this case, please feel free to contact me at pager: or reach me at mobile: [phone]. Consultation Date/Type/Reason Admit Date/Time Feb 24, 2017 at 15:05 Date of Consultation: Feb 25, 2017 Type of Consultation: Foot and ankle surgery Hx of Present Illness Thank you very much for your kind consultation. As you very well know, this is a a 66-year-old male with history of diabetes, insulin dependency, GI bleed, hypertension, alcohol use, severe erosive esophagitis and gastritis who came to [facility] for reports of increased weakness as well as cough. Patient was previously discharged from [facility] on January 05, 2017 for osteomyelitis of his left foot. He reportedly was sent home on antibiotics and finished his antibiotic regimen roughly 2 weeks ago. Found his left foot to be infected with worsening imaging showing osteomyelitis of the first distal phalanx. I was consulted for evaluation. Constitutional: no complaints Eyes: no complaints ENT: no complaints Respiratory: no complaints Cardiovascular: no complaints Gastrointestinal: no complaints Neurologic: no complaints Endocrine: no complaints Psychological: no complaints Immunologic: no complaints Past Surgical History Past Surgical Hx: no surgical history Social History Alcohol Use: other (Previous alcohol abuse) Smoking Status: Never smoker Drug Use: none Exam/Review of Systems Vital Signs Vitals Vital Signs Date Time Temp Pulse Resp B/P Pulse Ox O2 Delivery O2 Flow Rate FiO2 02/25/17 20:46 98.3 83 16 153/66 95 02/24/17 18:28 Room Air Intake and Output 02/24/17 02/24/17 02/25/17 15:00 23:00 07:00 Intake Total 550 ml 1520 ml Output Total 1000 ml Balance 550 ml 520 ml Exam Patient is in no acute distress. Open wound present: distal left hallux with dry eschar at the distal aspect. Labs reviewed. Imaging reviewed. There is no pus. There is no bleeding. The area is non tender to palpation. Pedal pulses are palpable. Protective sensation is decreased to sharp, dull, vibratory and temperature stimuli. There is edema of the lower extremity. Results Result Diagram: 02/25/17 0446 02/25/17 0446 Results 24 hrs Laboratory Tests Test 02/25/17 04:46 02/25/17 07:45 02/25/17 08:00 02/25/17 11:17 White Blood Count 13.8 #H Red Blood Count 3.26 L Hemoglobin 9.0 L Hematocrit 26.6 L Mean Corpuscular Volume 81.6 L Mean Corpuscular Hemoglobin 27.6 L Mean Corpuscular Hemoglobin Concent 33.8 Red Cell Distribution Width 13.7 Platelet Count 156 Mean Platelet Volume 12.2 H Neutrophils % 77.6 H Lymphocytes % 15.1 Monocytes % 6.8 Eosinophils % 0.0 Basophils % 0.1 Nucleated Red Blood Cells % 0.0 Neutrophils # 10.7 H Lymphocytes # 2.1 Monocytes # 0.9 Eosinophils # 0.0 Basophils # 0.0 Nucleated Red Blood Cells # 0.0 Sodium Level 139 Potassium Level 4.1 Chloride Level 113 H Carbon Dioxide Level 21 Anion Gap 9 # Blood Urea Nitrogen 26 #H Creatinine 1.11 Glucose Level 89 # Hemoglobin A1c 8.2 H Calcium Level 7.8 L Phosphorus Level 2.2 L Magnesium Level 1.4 L Total Bilirubin 0.6 Direct Bilirubin 0.00 Indirect Bilirubin 0.6 Aspartate Amino Transf (AST/SGOT) 58 H Alanine Aminotransferase (ALT/SGPT) 59 Alkaline Phosphatase 126 H Total Protein 7.4 # Albumin 3.0 #L Globulin 4.40 H Albumin/Globulin Ratio 0.68 Triglycerides Level 56 Cholesterol Level 60 L LDL Cholesterol, Calculated 23 HDL Cholesterol 26 L Cholesterol/HDL Ratio 2.3 Thyroid Stimulating Hormone (TSH) 0.246 L Free Thyroxine Index 2.34 Thyroxine (T4) 4.6 L Triiodothyronine (T3) Uptake 50.8 H Bedside Glucose 97 186 Urine Eosinophils % 0.0 Urine Random Creatinine 57.16 Urine Protein/Creatinine Ratio 1.50 Urine Total Protein 86.0 H Test 02/25/17 16:53 02/25/17 20:39 Bedside Glucose 210 210 Medications Medications Current Medications Aspirin (Aspirin) 81 mg DAILY PO Last administered on 02/25/17 08:33; Admin Dose 81 MG; Start 02/25/17 at 09:00 Atorvastatin Calcium (Lipitor) 40 mg HS PO Last administered on 02/25/17 20:41 ; Admin Dose 40 MG; Start 02/24/17 at 21:00 Metoprolol Tartrate 25 mg 25 mg BID PO Last administered on 02/25/17 20:41; Admin Dose 25 MG; Start 02/24/17 at 21:00 Sodium Chloride (NS) 1,000 ml @ 100 mls/hr Q10H IV Last administered on 06:45; Admin Dose 100 MLS/HR; Start 02/24/17 at 16:30; Stop 02/26/17 at 09: 14 Ondansetron HCl (Zofran Inj) 4 mg Q6H PRN IV NAUSEA AND/OR VOMITING Last administered on 02/25/17 00:40; Admin Dose 4 MG; Start 02/24/17 at 16:30 Acetaminophen (Tylenol Tab) 650 mg Q6H PRN PO PAIN LEVEL 1-3 OR FEVER; Start at 16:30 Acetaminophen (Tylenol Supp) 650 mg Q6H PRN [place] PAIN LEVEL 1-3 OR FEVER; Start 02/24/17 at 16:30 Acetaminophen/ Hydrocodone Bitart ([place] (5/325)) 1 tab Q6H PRN PO MODERATE PAIN LEVEL 4-6; Start 02/24/17 at 16:30 Acetaminophen/ Hydrocodone Bitart ([place] (5/325)) 2 tab Q6H PRN PO SEVERE PAIN LEVEL 7-10; Start 02/24/17 at 16:30 Morphine Sulfate (morphine) 2 mg Q4H PRN IV SEVERE PAIN LEVEL 7-10; Start 02/24 at 16:30 Docusate Sodium (Colace) 100 mg Q12H PRN PO CONSTIPATION; Start 02/24/17 at 16: 30 Magnesium Hydroxide (Milk Of Mag) 30 ml DAILY PRN PO CONSTIPATION; Start at 16:30 Bisacodyl (Dulcolax Supp) 10 mg DAILY PRN [place] CONSTIPATION; Start 02/24/17 at 16 :30 Pantoprazole (Protonix Iv) 40 mg DAILY@06 IV Last administered on 02/25/17 05: 32; Admin Dose 40 MG; Start 02/25/17 at 06:00 Diagnostic Test (Pha) (Accu-Chek) 1 ea 02 XX ; Start 02/25/17 at 02:00 Insulin Glargine 9 unit 9 unit DAILY@08 SC Last administered on 02/25/17 07:59 ; Admin Dose 9 UNIT; Start 02/25/17 at 08:00 Azithromycin 250 ml @ 250 mls/hr DAILY IVPB Last administered on 02/25/17 09: 52; Admin Dose 250 MLS/HR; Start 02/24/17 at 18:00 Meropenem/Sodium Chloride (Merrem 1 Gm/50 ml (Pmx)) 50 ml @ 100 mls/hr Q12 IVPB Last administered on 02/25/17 20:41; Admin Dose 100 MLS/HR; Start at 19:00 Miscellaneous Information (Pending [facility] Order For Wound Care) This patient contreras... PRN PRN XX WOUND CARE; Start 02/24/17 at 19:00 Hydralazine HCl (Apresoline) 25 mg Q8H PRN PO ELEVATED SYSTOLIC BP; Start 02/24 at 19:30 Guaifenesin/ Codeine Phosphate (Robitussin Ac Liquid Cup) 10 ml Q4H PRN PO COUGH Last administered on 02/25/17 00:59; Admin Dose 10 ML; Start 02/24/17 at 20:30 Miscellaneous Information 1 ea NOTE XX ; Start 02/24/17 at 21:00 Glucose (Glutose) 15 gm Q15M PRN PO DECREASED GLUCOSE; Start 02/24/17 at 21:00 Glucose (Glutose) 22.5 gm Q15M PRN PO DECREASED GLUCOSE; Start 02/24/17 at 21: 00 Dextrose (D50w Syringe) 25 ml Q15M PRN IV DECREASED GLUCOSE; Start 02/24/17 at 21:00 Dextrose (D50w Syringe) 50 ml Q15M PRN IV DECREASED GLUCOSE; Start 02/24/17 at 21:00 Glucagon (Glucagen) 1 mg Q15M PRN IM DECREASED GLUCOSE; Start 9/30/17 at 21:00 Glucose 15 gm 15 gm Q15M PRN BUCCAL DECREASED GLUCOSE; Start 02/24/17 at 21:00 Vancomycin HCl/ Sodium Chloride (Vancocin/NS) 150 ml @ 75 mls/hr Q12H IVPB Last administered on 02/25/17t 13:22; Admin Dose 75 MLS/HR; Start 02/25/17 at 13 :00 Miscellaneous Information (*Rx Drug Level Order Reminder*) VANCOMYCIN TROUGH AT 1200 ONCE ONCE XX ; Start 02/26/17 at 12:00; Stop 02/26/17 at 12:01 BOSSMAN FLYNN DPM Feb 25, 2017 23:44
[2017-02-26] MEDS: SOD CHLORIDE 0.9% 1,000 ML IV SCH (01:10)
[2017-02-26] MEDS: VANCOMYCIN 750 MG in SOD CHLORIDE 0.9% 150 ML IVPB SCH ×2 (01:10→13:36)
[2017-02-26] MEDS: ACCU-CHEK XX SCH (02:00)
[2017-02-26 02:46] VITALS: BP_SYST 152; BP_SYST 168; BP_DIAS 67; BP_DIAS 75; RESP 16
[2017-02-26] MEDS: PANTOPRAZOLE 40 MG INJ IV SCH (05:26)
[2017-02-26 05:27] VITALS: BP 139/64; PULSE 99
[2017-02-26 05:28] LABS: BASOPHILS % 0.1 % (0.0-2.0); HEMATOCRIT 26.7 % (42.0-52.0); HEMOGLOBIN 8.4 g/dl (14.0-18.0); LYMPHOCYTES # 1.5 10^3/ul (0.8-2.9); LYMPHOCYTES % 8.3 % (15.0-51.0); MEAN CORPUSCULAR HEMOGLOBIN 25.8 pg (29.0-33.0); MEAN CORPUSCULAR HGB CONC 31.5 g/dl (32.0-37.0); MEAN CORPUSCULAR VOLUME 81.9 fl (82.0-101.0); MEAN PLATELET VOLUME 12.3 fl (7.4-10.4); MONOCYTE # 0.9 10^3/ul (0.3-0.9); MONOCYTES % 5.1 % (0.0-11.0); NEUTROPHIL # 15.4 10^3/ul (1.6-7.5); NEUTROPHILS % 85.5 % (39.0-77.0); PLATELET COUNT 159 10^3/UL (140-415); RED BLOOD COUNT 3.26 10^6/ul (4.70-6.10); RED CELL DISTRIBUTION WIDTH 13.8 % (11.5-14.5)
[2017-02-26 05:49] LABS: PHOSPHORUS 1.9 mg/dl (2.5-4.9)
[2017-02-26 05:50] LABS: CREATININE 1.04 mg/dl (0.61-1.24); POTASSIUM 3.7 mmol/L (3.5-5.1)
[2017-02-26 05:55] LABS: TOTAL IRON BINDING CAPACITY 233 ug/dl (241-421)
[2017-02-26 05:56] LABS: IRON < 10 ug/dl (35-150)
[2017-02-26 06:21] LABS: FERRITIN 93.9 ng/ml (11.1-264.0)
[2017-02-26 07:49] VITALS: BP 155/70; RESP 20
[2017-02-26] MEDS: INSULIN ASPART [NOVOLOG] 3 ML PEN SC SCH ×4 (08:00→20:55)
[2017-02-26] MEDS: ASPIRIN 81 MG TAB PO SCH (08:19)
[2017-02-26] MEDS: INSULIN GLARGINE [LANtus] 3 ML PEN SC SCH (08:20)
[2017-02-26] MEDS: METOPROLOL 25 MG TAB PO SCH ×2 (08:23→20:53)
[2017-02-26] MEDS: MEROPENEM 1 GM/50ML(PMX) 50 ML IVPB SCH ×2 (08:24→20:55)
[2017-02-26] MEDS: AZITHROMYCIN 500MG/NS (PMX) 250 ML IVPB SCH (09:05)
--- NOTE | 2017-02-26 09:18 | PN ---
Date/Time of Note Date/Time of Note DATE: 02/26/17 TIME: 09:12 Assessment/Plan VTE Prophylaxis VTE Prophylaxis Intervention: SCD's Lines/Catheters [facility]from [facility] [place] Urinary Cath still in place: No Assessment/Plan Chief Complaint/Hosp Course 1. CHARISSE: likely pre-renal in nature and resolving with hydration. No outflow obstruction noted. Will d/c IVF today. He does have 1.5 grams of proteinuria and will resume ACEi next 24 hours. 2. HTN: CPM, will resume ACEi next 24 hours if renal baum stable off IVF. 3. Hypomagnesemia: 1 grams mag sulfate today 4. Hypophosphatemia: Will check Vit D levels and PTH. will administer 20 mmol fo sodium phos today. Not on any antacids and unclear why remains persistently hypophosphatemic as renal adaptation should occur and increase absorption. Will start with small w/u by checking vit d pth levels for now. 5. Osteomyelitis: Left first distal phalanx, as per ID and podiatry colleagues. 6. Anemia chronic disease: no role for FOUZIA as GFR not significantly impaired. He is iron deficient but will hold off on IV iron in setting of infection and place on oral iron for now. 7. Subnephrotic Range Proteinuria: 1.5 grams and likely secondary to DMII, will resume ACEi as stated above next 24 hours. Meds reviewed. Discussed with patient. call if ? [phone]. Thank you Problems: Subjective 24 Hr Interval Summary Free Text/Dictation Patient being seen for CHARISSE. No overnight events noted. Remains afebrile and bc NTD. Constitutional: no complaints Eyes: no complaints ENT: no complaints Respiratory: no complaints Cardiovascular: no complaints Genitourinary: no complaints Musculoskeletal: no complaints Skin: other Neurologic: no complaints Psychological: no complaints Exam/Review of Systems Vital Signs Vitals Vital Signs Date Time Temp Pulse Resp B/P Pulse Ox O2 Delivery O2 Flow Rate FiO2 02/26/17 07:49 99.4 91 20 155/70 94 02/24/17 18:28 Room Air Intake and Output 02/25/17 02/25/17 02/26/17 15:00 23:00 07:00 Intake Total 350 ml 1400 ml 2070 ml Output Total 1800 ml 700 ml Balance 350 ml -400 ml 1370 ml Exam Constitutional: alert, oriented, well developed Psych: no complaints Head: normocephalic Eyes: nl conjunctiva ENMT: nl external ears & nose Neck: supple Respiratory: clear to auscultation Cardiovascular: regular rate and rhythm Gastrointestinal: soft Musculoskeletal: nl extremities to inspection Extremities: other Neurological: [employer] II-XII intact Lymph: other Results Result Diagram: 02/26/17 0514 02/26/17 0514 Results 24 hrs Laboratory Tests Test 02/25/17 11:17 02/25/17 16:53 02/25/17 20:39 02/26/17 02:07 Bedside Glucose 186 210 210 191 Test 02/26/17 05:14 02/26/17 07:49 White Blood Count 18.0 #H Red Blood Count 3.26 L Hemoglobin 8.4 L Hematocrit 26.7 L Mean Corpuscular Volume 81.9 L Mean Corpuscular Hemoglobin 25.8 L Mean Corpuscular Hemoglobin Concent 31.5 L Red Cell Distribution Width 13.8 Platelet Count 159 Mean Platelet Volume 12.3 H Neutrophils % 85.5 H Lymphocytes % 8.3 L Monocytes % 5.1 Eosinophils % 0.0 Basophils % 0.1 Nucleated Red Blood Cells % 0.0 Neutrophils # 15.4 H Lymphocytes # 1.5 Monocytes # 0.9 Eosinophils # 0.0 Basophils # 0.0 Nucleated Red Blood Cells # 0.0 Sodium Level 136 Potassium Level 3.7 Chloride Level 108 Carbon Dioxide Level 21 Anion Gap 11 Blood Urea Nitrogen 19 Creatinine 1.04 Glucose Level 199 # Calcium Level 8.0 L Phosphorus Level 1.9 L Magnesium Level 1.8 Iron Level < 10 L Total Iron Binding Capacity 233 L Percent Iron Saturation Ferritin 93.9 Bedside Glucose 194 Medications Medications Current Medications Aspirin (Aspirin) 81 mg DAILY PO Last administered on 02/26/17 08:19; Admin Dose 81 MG; Start 02/25/17 at 09:00 Atorvastatin Calcium (Lipitor) 40 mg HS PO Last administered on 02/25/17 20:41 ; Admin Dose 40 MG; Start 02/24/17 at 21:00 Metoprolol Tartrate 25 mg 25 mg BID PO Last administered on 02/26/17 08:23; Admin Dose 25 MG; Start 02/24/17 at 21:00 Sodium Chloride (NS) 1,000 ml @ 100 mls/hr Q10H IV Last administered on 01:10; Admin Dose 100 MLS/HR; Start 02/24/17 at 16:30; Stop 02/26/17 at 09: 14 Ondansetron HCl (Zofran Inj) 4 mg Q6H PRN IV NAUSEA AND/OR VOMITING Last administered on 02/25/17 00:40; Admin Dose 4 MG; Start 02/24/17 at 16:30 Acetaminophen (Tylenol Tab) 650 mg Q6H PRN PO PAIN LEVEL 1-3 OR FEVER; Start at 16:30 Acetaminophen (Tylenol Supp) 650 mg Q6H PRN [place] PAIN LEVEL 1-3 OR FEVER; Start 02/24/17 at 16:30 Acetaminophen/ Hydrocodone Bitart ([place] (5/325)) 1 tab Q6H PRN PO MODERATE PAIN LEVEL 4-6; Start 02/24/17 at 16:30 Acetaminophen/ Hydrocodone Bitart ([place] (5/325)) 2 tab Q6H PRN PO SEVERE PAIN LEVEL 7-10; Start 02/24/17 at 16:30 Morphine Sulfate (morphine) 2 mg Q4H PRN IV SEVERE PAIN LEVEL 7-10; Start 02/24 at 16:30 Docusate Sodium (Colace) 100 mg Q12H PRN PO CONSTIPATION; Start 02/24/17 at 16: 30 Magnesium Hydroxide (Milk Of Mag) 30 ml DAILY PRN PO CONSTIPATION; Start at 16:30 Bisacodyl (Dulcolax Supp) 10 mg DAILY PRN [place] CONSTIPATION; Start 02/24/17 at 16 :30 Pantoprazole (Protonix Iv) 40 mg DAILY@06 IV Last administered on 02/26/17 05: 26; Admin Dose 40 MG; Start 02/25/17 at 06:00 Diagnostic Test (Pha) (Accu-Chek) 1 ea 02 XX ; Start 02/25/17 at 02:00 Insulin Glargine 9 unit 9 unit DAILY@08 SC Last administered on 02/26/17 08:20 ; Admin Dose 9 UNIT; Start 02/25/17 at 08:00 Azithromycin 250 ml @ 250 mls/hr DAILY IVPB Last administered on 02/26/17 09: 05; Admin Dose 250 MLS/HR; Start 02/24/17 at 18:00 Meropenem/Sodium Chloride (Merrem 1 Gm/50 ml (Pmx)) 50 ml @ 100 mls/hr Q12 IVPB Last administered on 02/26/17 08:24; Admin Dose 100 MLS/HR; Start at 19:00 Miscellaneous Information (Pending [facility] Order For Wound Care) This patient contreras... PRN PRN XX WOUND CARE; Start 02/24/17 at 19:00 Hydralazine HCl (Apresoline) 25 mg Q8H PRN PO ELEVATED SYSTOLIC BP Last administered on 02/26/17 02:56; Admin Dose 25 MG; Start 02/24/17 at 19:30 Guaifenesin/ Codeine Phosphate (Robitussin Ac Liquid Cup) 10 ml Q4H PRN PO COUGH Last administered on 02/25/17 00:59; Admin Dose 10 ML; Start 02/24/17 at 20:30 Miscellaneous Information 1 ea NOTE XX ; Start 02/24/17 at 21:00 Glucose (Glutose) 15 gm Q15M PRN PO DECREASED GLUCOSE; Start 02/24/17 at 21:00 Glucose (Glutose) 22.5 gm Q15M PRN PO DECREASED GLUCOSE; Start 02/24/17 at 21: 00 Dextrose (D50w Syringe) 25 ml Q15M PRN IV DECREASED GLUCOSE; Start 02/24/17 at 21:00 Dextrose (D50w Syringe) 50 ml Q15M PRN IV DECREASED GLUCOSE; Start 02/24/17 at 21:00 Glucagon (Glucagen) 1 mg Q15M PRN IM DECREASED GLUCOSE; Start 02/24/17 at 21:00 Glucose 15 gm 15 gm Q15M PRN BUCCAL DECREASED GLUCOSE; Start 02/24/17 at 21:00 Vancomycin HCl/ Sodium Chloride (Vancocin/NS) 150 ml @ 75 mls/hr Q12H IVPB Last administered on 02/26/17 01:10; Admin Dose 75 MLS/HR; Start 02/25/17 at 13 :00 Miscellaneous Information VANCOMYCIN TROUGH 02/26 AT 1200 ONCE ONCE XX ; Start 02/26/17 at 12:00; Stop 02/26/17 at 12:01 Sodium Phosphate 20 mmol/Sodium Chloride 256.6667 ml @ 64.167 m... ONCE ONCE IVPB ; Start 02/26/17 at 11:30; Stop 02/26/17 at 15:29 Magnesium Sulfate/ Dextrose (Magnesium Sulfate 1 Gm/D5W) 100 ml @ 100 mls/hr ONCE ONCE IVPB ; Start 02/26/17 at 10:30; Stop 02/26/17 at 11:29 Ferrous Sulfate (Ferrous Sulfate (Ec)) 325 mg BID PO ; Start 02/26/17 at 09:30 MARYBEL OLIVIER MD Feb 26, 2017 09:18
[2017-02-26] MEDS: FERROUS SULFATE (EC) 325 MG TAB PO SCH ×2 (09:39→20:53)
[2017-02-26] MEDS ORDERED: MAGNESIUM SULFATE 1 GM/D5W 100 ML IVPB ONE (10:30)
[2017-02-26] MEDS ORDERED: SOD CHLORIDE 0.9% IVPB ONE (11:30)
[2017-02-26] MEDS ORDERED: SODIUM PHOSPHATE IVPB ONE (11:30)
[2017-02-26 14:58] VITALS: BP 147/66; RESP 20
--- NOTE | 2017-02-26 16:50 | PN ---
Date/Time of Note Date/Time of Note DATE: 02/26/17 TIME: 16:46 Assessment/Plan VTE Prophylaxis VTE Prophylaxis Intervention: SCD's Lines/Catheters IV Catheter Type (from Nrs): Peripheral IV Urinary Cath still in place: No Assessment/Plan Chief Complaint/Hosp Course 1. Osteomyelitis of the first distal phalanx on the left side with left first toe cellulitis. On antibiotics as per infectious diseases. Podiatry evaluation ongoing. 2. Diabetes mellitus. Unknown type. Hemoglobin A1C 8.2. Continue sliding scale insulin along with basal insulin. 3. Essential hypertension. Continue antihypertensives. 4. Iron deficiency anemia. Continue iron supplements. 5. Acute kidney injury. Probably prerenal in origin. Resolved status post IV hydration.. 6. Fluids, electrolytes, and nutrition. Carbohydrate controlled diet. 7. DVT prophylaxis. Bilateral sequential compression devices. 8.. Continue antimicrobials as per infectious disease. Await further recommendations from podiatry. Case discussed with Dr. Patten. Problems: Subjective 24 Hr Interval Summary Free Text/Dictation Denies any pain. Exam/Review of Systems Vital Signs Vitals Vital Signs Date Time Temp Pulse Resp B/P Pulse Ox O2 Delivery O2 Flow Rate FiO2 02/26/17 14:58 98.1 83 20 147/66 96 02/24/17 18:28 Room Air Intake and Output 02/25/17 02/25/17 02/26/17 15:00 23:00 07:00 Intake Total 350 ml 1400 ml 2070 ml Output Total 1800 ml 700 ml Balance 350 ml -400 ml 1370 ml Exam General: Adequately build 66 year-old male lying in bed in no apparent distress. HEENT: Normocephalic, atraumatic. Eyes: Anicteric sclerae, conjunctivae clear. ENT: Nasal septum midline, oral mucosa moist. Neck supple, no JVD noticed. Respiratory: Bilaterally clear breath sounds. No use of accessory muscles of respiration. No adventitious breath sounds. Cardiovascular: S1, S2 heard. No murmurs or gallops. Abdomen: Soft, nontender, and nondistended. Bowel sounds positive in all 4 quadrants. Genitourinary: Deferred. Extremities: No cyanosis, no clubbing, no edema. Peripheral pulses palpable. Neurologic: Cranial nerves II through XII grossly intact. The patient is awake, alert, and oriented. Skin: Normal skin turgor. No skin rashes. Results Result Diagram: 02/26/17 0514 02/26/17 0514 Results 24 hrs Laboratory Tests Test 02/25/17 16:53 02/25/17 20:39 02/26/17 02:07 02/26/17 05:14 Bedside Glucose 210 210 191 White Blood Count 18.0 #H Red Blood Count 3.26 L Hemoglobin 8.4 L Hematocrit 26.7 L Mean Corpuscular Volume 81.9 L Mean Corpuscular Hemoglobin 25.8 L Mean Corpuscular Hemoglobin Concent 31.5 L Red Cell Distribution Width 13.8 Platelet Count 159 Mean Platelet Volume 12.3 H Neutrophils % 85.5 H Lymphocytes % 8.3 L Monocytes % 5.1 Eosinophils % 0.0 Basophils % 0.1 Nucleated Red Blood Cells % 0.0 Neutrophils # 15.4 H Lymphocytes # 1.5 Monocytes # 0.9 Eosinophils # 0.0 Basophils # 0.0 Nucleated Red Blood Cells # 0.0 Sodium Level 136 Potassium Level 3.7 Chloride Level 108 Carbon Dioxide Level 21 Anion Gap 11 Blood Urea Nitrogen 19 Creatinine 1.04 Glucose Level 199 # Calcium Level 8.0 L Phosphorus Level 1.9 L Magnesium Level 1.8 Iron Level < 10 L Total Iron Binding Capacity 233 L Percent Iron Saturation Ferritin 93.9 Test 02/26/17 07:49 02/26/17 11:46 02/26/17 11:50 Bedside Glucose 194 220 Vancomycin Level Trough 9.6 L Medications Medications Current Medications Aspirin (Aspirin) 81 mg DAILY PO Last administered on 02/26/17 08:19; Admin Dose 81 MG; Start 02/25/17 at 09:00 Atorvastatin Calcium (Lipitor) 40 mg HS PO Last administered on 02/25/17 20:41 ; Admin Dose 40 MG; Start 02/24/17 at 21:00 Metoprolol Tartrate (Lopressor) 25 mg BID PO Last administered on 02/26/17 08: 23; Admin Dose 25 MG; Start 02/24/17 at 21:00 Ondansetron HCl (Zofran Inj) 4 mg Q6H PRN IV NAUSEA AND/OR VOMITING Last administered on 02/25/17 00:40; Admin Dose 4 MG; Start 02/24/17 at 16:30 Acetaminophen (Tylenol Tab) 650 mg Q6H PRN PO PAIN LEVEL 1-3 OR FEVER; Start at 16:30 Acetaminophen (Tylenol Supp) 650 mg Q6H PRN [place] PAIN LEVEL 1-3 OR FEVER; Start 02/24/17 at 16:30 Acetaminophen/ Hydrocodone Bitart ([place] (5/325)) 1 tab Q6H PRN PO MODERATE PAIN LEVEL 4-6; Start 02/24/17 at 16:30 Acetaminophen/ Hydrocodone Bitart ([place] (5/325)) 2 tab Q6H PRN PO SEVERE PAIN LEVEL 7-10; Start 02/24/17 at 16:30 Morphine Sulfate (morphine) 2 mg Q4H PRN IV SEVERE PAIN LEVEL 7-10; Start 02/24 at 16:30 Docusate Sodium (Colace) 100 mg Q12H PRN PO CONSTIPATION; Start 02/24/17 at 16: 30 Magnesium Hydroxide (Milk Of Mag) 30 ml DAILY PRN PO CONSTIPATION; Start at 16:30 Bisacodyl (Dulcolax Supp) 10 mg DAILY PRN [place] CONSTIPATION; Start 02/24/17 at 16 :30 Diagnostic Test (Pha) (Accu-Chek) 1 ea 02 XX ; Start 02/25/17 at 02:00 Insulin Glargine 9 unit 9 unit DAILY@08 SC Last administered on 02/26/17 08:20 ; Admin Dose 9 UNIT; Start 02/25/17 at 08:00 Azithromycin 250 ml @ 250 mls/hr DAILY IVPB Last administered on 02/26/17 09: 05; Admin Dose 250 MLS/HR; Start 02/24/17 at 18:00 Meropenem/Sodium Chloride (Merrem 1 Gm/50 ml (Pmx)) 50 ml @ 100 mls/hr Q12 IVPB Last administered on 02/26/17 08:24; Admin Dose 100 MLS/HR; Start at 19:00 [facility] This patient contreras... PRN PRN XX WOUND CARE; Start 02/24/17 at 19:00 Hydralazine HCl (Apresoline) 25 mg Q8H PRN PO ELEVATED SYSTOLIC BP Last administered on 02/26/17 02:56; Admin Dose 25 MG; Start 02/24/17 at 19:30 Guaifenesin/ Codeine Phosphate (Robitussin Ac Liquid Cup) 10 ml Q4H PRN PO COUGH Last administered on 02/25/17 00:59; Admin Dose 10 ML; Start 02/24/17 at 20:30 Miscellaneous Information 1 ea NOTE XX ; Start 02/24/17 at 21:00 Glucose (Glutose) 15 gm Q15M PRN PO DECREASED GLUCOSE; Start 02/24/17 at 21:00 Glucose (Glutose) 22.5 gm Q15M PRN PO DECREASED GLUCOSE; Start 02/24/17 at 21: 00 Dextrose (D50w Syringe) 25 ml Q15M PRN IV DECREASED GLUCOSE; Start 02/24/17 at 21:00 Dextrose (D50w Syringe) 50 ml Q15M PRN IV DECREASED GLUCOSE; Start 02/24/17 at 21:00 Glucagon (Glucagen) 1 mg Q15M PRN IM DECREASED GLUCOSE; Start 02/24/17 at 21:00 Glucose 15 gm 15 gm Q15M PRN BUCCAL DECREASED GLUCOSE; Start 02/24/17 at 21:00 Vancomycin HCl/ Sodium Chloride (Vancocin/NS) 150 ml @ 75 mls/hr Q12H IVPB Last administered on 02/26/17 13:36; Admin Dose 75 MLS/HR; Start 02/25/17 at 13 :00; Stop 02/26/17 at 18:00 Ferrous Sulfate (Ferrous Sulfate (Ec)) 325 mg BID PO Last administered on 09:39; Admin Dose 325 MG; Start 02/26/17 at 09:30 Pantoprazole 40 mg 40 mg DAILY@06 PO ; Start 02/27/17 at 06:00 Vancomycin HCl (Vancocin) 250 ml @ 125 mls/hr Q12H IVPB ; Start 02/27/17 at 00: 00 LEW HERNANDEZ NP Feb 26, 2017 16:50
[2017-02-26] MEDS: ACETAMINOPHEN 325 MG TAB PO PRN (17:48)
[2017-02-26 20:00] VITALS: BP 120/58; RESP 20
[2017-02-26] MEDS: ATORVASTATIN 40 MG TAB PO SCH (20:53)
[2017-02-26] MEDS: GUAIFENESIN/CODEINE 5ML CUP PO PRN (23:48)
[2017-02-26] MEDS: VANCOMYCIN 1 GM in NS 250 ML IVPB SCH (23:49)
[2017-02-27 02:00] VITALS: BP 132/60; RESP 20
[2017-02-27] MEDS: ACCU-CHEK XX SCH (02:00)
[2017-02-27] MEDS: PANTOPRAZOLE (EC) 40 MG TAB PO SCH (05:25)
[2017-02-27] MEDS: GUAIFENESIN/CODEINE 5ML CUP PO PRN (05:39)
[2017-02-27 05:56] LABS: BASOPHILS % 0.1 % (0.0-2.0); EOSINOPHILS % 0.2 % (0.0-7.0); HEMATOCRIT 26.1 % (42.0-52.0); HEMOGLOBIN 8.6 g/dl (14.0-18.0); LYMPHOCYTES # 1.7 10^3/ul (0.8-2.9); LYMPHOCYTES % 9.8 % (15.0-51.0); MEAN CORPUSCULAR HEMOGLOBIN 27.1 pg (29.0-33.0); MEAN CORPUSCULAR VOLUME 82.3 fl (82.0-101.0); MEAN PLATELET VOLUME 12.1 fl (7.4-10.4); MONOCYTE # 1.1 10^3/ul (0.3-0.9); MONOCYTES % 6.4 % (0.0-11.0); NEUTROPHIL # 13.9 10^3/ul (1.6-7.5); NEUTROPHILS % 82.4 % (39.0-77.0); PLATELET COUNT 184 10^3/UL (140-415); RED BLOOD COUNT 3.17 10^6/ul (4.70-6.10); RED CELL DISTRIBUTION WIDTH 13.4 % (11.5-14.5); WHITE BLOOD COUNT 16.9 10^3/ul (4.8-10.8)
[2017-02-27 06:38] LABS: CALCIUM 7.7 mg/dl (8.4-10.2); CREATININE 0.95 mg/dl (0.61-1.24)
[2017-02-27 06:45] LABS: MAGNESIUM 1.8 mg/dl (1.7-2.5)
--- NOTE | 2017-02-27 07:04 | PN ---
DATE: 02/27/2017 SUBJECTIVE DATA: No acute changes. The patient is alert. Feels good. Denies pain, discomfort. No fevers. LABORATORY AND DIAGNOSTIC DATA: WBC today 18, platelets 159, neutrophils 85.5, BUN 19, creatinine 1.04. MICROBIOLOGY: Left big toe wound culture growing Staph species. Blood cultures negative. Urine culture negative. DIAGNOSTICS: X-ray of the foot revealed osteomyelitis of the 1st distal phalanx, worsened since previously. Chest x-ray on admission revealed clear lung kirk. ANTIMICROBIALS: The patient is on: 1. IV vancomycin. 2. Meropenem. PHYSICAL EXAMINATION: GENERAL: Well nourished, well developed, elderly, man, who is alert, in no distress. HEENT: Head atraumatic, normocephalic. Sclerae anicteric. Buccal mucosa pink. NECK: Supple. CHEST: Rise symmetrical. Breath sounds clear. HEART: S1, S2. ABDOMEN: Soft, bowel sounds present. EXTREMITIES: Without cyanosis, left great toe with a wound, no drainage. ASSESSMENT: 1. Left great toe cellulitis with osteomyelitis. 2. Acute kidney injury. 3. Hypertension. 4. Diabetes. PLAN: The patient remains stable. Etiology of his leukocytosis unclear. He does not appear to be toxic or septic. He is afebrile. We will keep him on current antimicrobials for now. Follow labs in a.m. Follow recommendations of consultants. Dictated By: Shelly Mendez NP /sd/lexi /Document#: [id number]
[2017-02-27 07:30] VITALS: BP 137/64; RESP 16
[2017-02-27] MEDS: MEROPENEM 1 GM/50ML(PMX) 50 ML IVPB SCH (08:12)
[2017-02-27] MEDS: COLLAGENASE 30 GM TUBE TOP SCH (08:13)
[2017-02-27] MEDS: ASPIRIN 81 MG TAB PO SCH (08:13)
[2017-02-27] MEDS: FERROUS SULFATE (EC) 325 MG TAB PO SCH ×2 (08:13→21:25)
[2017-02-27] MEDS: INSULIN GLARGINE [LANtus] 3 ML PEN SC SCH (08:15)
[2017-02-27] MEDS: INSULIN ASPART [NOVOLOG] 3 ML PEN SC SCH ×4 (08:16→21:00)
[2017-02-27] MEDS: METOPROLOL 25 MG TAB PO SCH ×2 (08:17→21:28)
--- NOTE | 2017-02-27 08:49 | PN ---
Date/Time of Note Date/Time of Note DATE: 02/27/17 TIME: 08:45 Assessment/Plan VTE Prophylaxis VTE Prophylaxis Intervention: SCD's Lines/Catheters IV Catheter Type (from [facility]): Saline Lock Urinary Cath still in place: No Assessment/Plan Chief Complaint/Hosp Course 1. Osteomyelitis of the first distal phalanx on the left side with overlying cellulitis of the left first toe.. On antibiotics as per infectious diseases. Podiatry evaluation ongoing. No surgical interventions needed as per Podiatry, but needs intermediate frame tender IV antibiotics. 2. Diabetes mellitus. Unknown type. Hemoglobin A1C 8.2. Continue sliding scale insulin along with basal insulin. 3. Essential hypertension. Continue antihypertensives. 4. Iron deficiency anemia. Continue iron supplements. 5. Acute kidney injury. Probably prerenal in origin. Resolved status post IV hydration.. 6. Fluids, electrolytes, and nutrition. Carbohydrate controlled diet. 7. DVT prophylaxis. Bilateral sequential compression devices. 8.. Continue antimicrobials as per infectious disease. Plan is to discharge the patient home on IV antibiotics as per Podiatry recommendations once antibiotics are finalized by ID. Case discussed with Dr. Patten. Problems: Subjective 24 Hr Interval Summary Free Text/Dictation Patient had a febrile episode yesterday evening. Exam/Review of Systems Vital Signs Vitals Vital Signs Date Time Temp Pulse Resp B/P Pulse Ox O2 Delivery O2 Flow Rate FiO2 02/27/17 07:30 98.3 90 16 137/64 96 02/24/17 18:28 Room Air Intake and Output 02/26/17 02/26/17 02/27/17 15:00 23:00 07:00 Intake Total 400 ml 1536.6667 ml 730 ml Output Total 1000 ml 1350 ml Balance 400 ml 536.6667 ml -620 ml Exam General: Adequately build 66 year-old male lying in bed in no apparent distress. HEENT: Normocephalic, atraumatic. Eyes: Anicteric sclerae, conjunctivae clear. ENT: Nasal septum midline, oral mucosa moist. Neck supple, no JVD noticed. Respiratory: Bilaterally clear breath sounds. No use of accessory muscles of respiration. No adventitious breath sounds. Cardiovascular: S1, S2 heard. No murmurs or gallops. Abdomen: Soft, nontender, and nondistended. Bowel sounds positive in all 4 quadrants. Genitourinary: Deferred. Extremities: No cyanosis, no clubbing, no edema. Peripheral pulses palpable. Neurologic: Cranial nerves II through XII grossly intact. The patient is awake, alert, and oriented. Skin: Normal skin turgor. No skin rashes. Results Result Diagram: 02/27/17 0447 02/27/17 0447 Results 24 hrs Laboratory Tests Test 02/26/17 11:46 02/26/17 11:50 02/26/17 17:17 02/26/17 20:52 Bedside Glucose 220 188 184 Vancomycin Level Trough 9.6 L Test 02/27/17 02:36 02/27/17 04:47 02/27/17 08:01 Bedside Glucose 160 163 White Blood Count 16.9 H Red Blood Count 3.17 L Hemoglobin 8.6 L Hematocrit 26.1 L Mean Corpuscular Volume 82.3 Mean Corpuscular Hemoglobin 27.1 L Mean Corpuscular Hemoglobin Concent 33.0 Red Cell Distribution Width 13.4 Platelet Count 184 Mean Platelet Volume 12.1 H Neutrophils % 82.4 H Lymphocytes % 9.8 L Monocytes % 6.4 Eosinophils % 0.2 Basophils % 0.1 Nucleated Red Blood Cells % 0.0 Neutrophils # 13.9 H Lymphocytes # 1.7 Monocytes # 1.1 H Eosinophils # 0.0 Basophils # 0.0 Nucleated Red Blood Cells # 0.0 Sodium Level 138 Potassium Level 4.0 Chloride Level 108 Carbon Dioxide Level 23 Anion Gap 11 Blood Urea Nitrogen 17 Creatinine 0.95 Glucose Level 134 # Calcium Level 7.7 L Phosphorus Level 2.0 L Magnesium Level 1.8 Medications Medications Current Medications Aspirin (Aspirin) 81 mg DAILY PO Last administered on 02/27/17 08:13; Admin Dose 81 MG; Start 02/25/17 at 09:00 Atorvastatin Calcium (Lipitor) 40 mg HS PO Last administered on 02/26/17 20:53 ; Admin Dose 40 MG; Start 02/24/17 at 21:00 Metoprolol Tartrate (Lopressor) 25 mg BID PO Last administered on 02/27/17 08: 17; Admin Dose 25 MG; Start 02/24/17 at 21:00 Ondansetron HCl (Zofran Inj) 4 mg Q6H PRN IV NAUSEA AND/OR VOMITING Last administered on 02/25/17 00:40; Admin Dose 4 MG; Start 02/24/17 at 16:30 Acetaminophen (Tylenol Tab) 650 mg Q6H PRN PO PAIN LEVEL 1-3 OR FEVER Last administered on 02/26/17 17:48; Admin Dose 650 MG; Start 02/24/17 at 16:30 Acetaminophen (Tylenol Supp) 650 mg Q6H PRN [place] PAIN LEVEL 1-3 OR FEVER; Start 02/24/17 at 16:30 Acetaminophen/ Hydrocodone Bitart ([place] (5/325)) 1 tab Q6H PRN PO MODERATE PAIN LEVEL 4-6; Start 02/24/17 at 16:30 Acetaminophen/ Hydrocodone Bitart ([place] (5/325)) 2 tab Q6H PRN PO SEVERE PAIN LEVEL 7-10; Start 02/24/17 at 16:30 Morphine Sulfate (morphine) 2 mg Q4H PRN IV SEVERE PAIN LEVEL 7-10; Start 02/24 at 16:30 Docusate Sodium (Colace) 100 mg Q12H PRN PO CONSTIPATION; Start 02/24/17 at 16: 30 Magnesium Hydroxide (Milk Of Mag) 30 ml DAILY PRN PO CONSTIPATION; Start at 16:30 Bisacodyl (Dulcolax Supp) 10 mg DAILY PRN [place] CONSTIPATION; Start 02/24/17 at 16 :30 Diagnostic Test (Pha) (Accu-Chek) 1 ea 02 XX ; Start 02/25/17 at 02:00 Insulin Glargine 9 unit 9 unit DAILY@08 SC Last administered on 02/27/17 08:15 ; Admin Dose 9 UNIT; Start 02/25/17 at 08:00 Meropenem/Sodium Chloride (Merrem 1 Gm/50 ml (Pmx)) 50 ml @ 100 mls/hr Q12 IVPB Last administered on 02/27/17 08:12; Admin Dose 100 MLS/HR; Start at 19:00 Miscellaneous Information (Pending Santyl Order For Wound Care) This patient contreras... PRN PRN XX WOUND CARE; Start 02/24/17 at 19:00 Hydralazine HCl (Apresoline) 25 mg Q8H PRN PO ELEVATED SYSTOLIC BP Last administered on 02/26/17 02:56; Admin Dose 25 MG; Start 02/24/17 at 19:30 Guaifenesin/ Codeine Phosphate (Robitussin Ac Liquid Cup) 10 ml Q4H PRN PO COUGH Last administered on 02/27/17 05:39; Admin Dose 10 ML; Start 02/24/17 at 20:30 Miscellaneous Information 1 ea NOTE XX ; Start 02/24/17 at 21:00 Glucose (Glutose) 15 gm Q15M PRN PO DECREASED GLUCOSE; Start 02/24/17 at 21:00 Glucose (Glutose) 22.5 gm Q15M PRN PO DECREASED GLUCOSE; Start 02/24/17 at 21: 00 Dextrose (D50w Syringe) 25 ml Q15M PRN IV DECREASED GLUCOSE; Start 02/24/17 at 21:00 Dextrose (D50w Syringe) 50 ml Q15M PRN IV DECREASED GLUCOSE; Start 02/24/17 at 21:00 Glucagon (Glucagen) 1 mg Q15M PRN IM DECREASED GLUCOSE; Start 02/24/17 at 21:00 Glucose (Glutose) 15 gm Q15M PRN BUCCAL DECREASED GLUCOSE; Start 02/24/17 at 21 :00 Ferrous Sulfate (Ferrous Sulfate (Ec)) 325 mg BID PO Last administered on 08:13; Admin Dose 325 MG; Start 02/26/17 at 09:30 Pantoprazole 40 mg 40 mg DAILY@06 PO Last administered on 02/27/17 05:25; Admin Dose 40 MG; Start 02/27/17 at 06:00 Vancomycin HCl (Vancocin) 250 ml @ 125 mls/hr Q12H IVPB Last administered on 02/26/17 23:49; Admin Dose 125 MLS/HR; Start 02/27/17 at 00:00 Collagenase (Santyl) 1 applic DAILY TOP Last administered on 02/27/17 08:13; Admin Dose 1 APPLIC; Start 02/27/17 at 09:00 LEW HERNANDEZ NP Feb 27, 2017 08:49
--- NOTE | 2017-02-27 09:27 | PN ---
Date/Time of Note Date/Time of Note DATE: 02/27/17 TIME: 09:24 Assessment/Plan VTE Prophylaxis VTE Prophylaxis Intervention: other (per pcp) Lines/Catheters IV Catheter Type (from Nrs): Saline Lock Urinary Cath still in place: No Assessment/Plan Assessment/Plan 1. CHARISSE: likely pre-renal in nature and resolved with hydration. No outflow obstruction noted. 2. HTN: CPM, will resume ACEi 3. Hypomagnesemia: replace prn 4. Hypophosphatemia: replaced , fu vit D , iPTH 5. Osteomyelitis: Left first distal phalanx, as per ID and podiatry colleagues. 6. Anemia chronic disease: no role for FOUZIA as GFR not significantly impaired. He is iron deficient but will hold off on IV iron in setting of infection, on oral iron for now. 7. Subnephrotic Range Proteinuria: 1.5 grams and likely secondary to DMII, will resume ACEi , adjust dose prn Subjective 24 Hr Interval Summary Constitutional: No chills, No diaphoresis, No disoriented, No febrile, No improved, No no complaints, No other, No poor po, No requiring IVF, No requiring O2 ENT: No bleeding, No congestion, No discharge, No dysphagia, No no complaints, No other, No pain, No sore throat Respiratory: No cough, No no complaints, No other, No pain, No pleuritic pain, No shortness of breath, No sputum, No wheezing Cardiovascular: No chest pain, No edema, No lightheadedness, No no complaints, No orthopenea, No other, No palpitations, No paroxysmal nocturnal dyspnea Gastrointestinal: No blood, No constipation, No decreased appetite, No diarrhea , No flatus, No nausea, No no complaints, No other, No pain, No passing stool, No vomiting Genitourinary: No bleeding, No discharge, No dysuria, No flank pain, No hematuria, No no complaints, No other Exam/Review of Systems Vital Signs Vitals Vital Signs Date Time Temp Pulse Resp B/P Pulse Ox O2 Delivery O2 Flow Rate FiO2 02/27/17 07:30 98.3 90 16 137/64 96 02/24/17 18:28 Room Air Intake and Output 02/26/17 02/26/17 02/27/17 15:00 23:00 07:00 Intake Total 400 ml 1536.6667 ml 730 ml Output Total 1000 ml 1350 ml Balance 400 ml 536.6667 ml -620 ml Exam Constitutional: alert Psych: no complaints Head: atraumatic, normocephalic Eyes: EOMI Neck: supple Respiratory: clear to auscultation, normal air movement Cardiovascular: regular rate and rhythm Gastrointestinal: soft Results Result Diagram: 02/27/17 0447 02/27/17 0447 Results 24 hrs Laboratory Tests Test 02/26/17 11:46 02/26/17 11:50 02/26/17 17:17 02/26/17 20:52 Bedside Glucose 220 188 184 Vancomycin Level Trough 9.6 L Test 02/27/17 02:36 02/27/17 04:47 02/27/17 08:01 Bedside Glucose 160 163 White Blood Count 16.9 H Red Blood Count 3.17 L Hemoglobin 8.6 L Hematocrit 26.1 L Mean Corpuscular Volume 82.3 Mean Corpuscular Hemoglobin 27.1 L Mean Corpuscular Hemoglobin Concent 33.0 Red Cell Distribution Width 13.4 Platelet Count 184 Mean Platelet Volume 12.1 H Neutrophils % 82.4 H Lymphocytes % 9.8 L Monocytes % 6.4 Eosinophils % 0.2 Basophils % 0.1 Nucleated Red Blood Cells % 0.0 Neutrophils # 13.9 H Lymphocytes # 1.7 Monocytes # 1.1 H Eosinophils # 0.0 Basophils # 0.0 Nucleated Red Blood Cells # 0.0 Sodium Level 138 Potassium Level 4.0 Chloride Level 108 Carbon Dioxide Level 23 Anion Gap 11 Blood Urea Nitrogen 17 Creatinine 0.95 Glucose Level 134 # Calcium Level 7.7 L Phosphorus Level 2.0 L Magnesium Level 1.8 Medications Medications Current Medications Aspirin (Aspirin) 81 mg DAILY PO Last administered on 02/27/17 08:13; Admin Dose 81 MG; Start 02/25/17 at 09:00 Atorvastatin Calcium (Lipitor) 40 mg HS PO Last administered on 02/26/17 20:53 ; Admin Dose 40 MG; Start 02/24/17 at 21:00 Metoprolol Tartrate (Lopressor) 25 mg BID PO Last administered on 02/27/17 08: 17; Admin Dose 25 MG; Start 02/24/17 at 21:00 Ondansetron HCl (Zofran Inj) 4 mg Q6H PRN IV NAUSEA AND/OR VOMITING Last administered on 02/25/17 00:40; Admin Dose 4 MG; Start 02/24/17 at 16:30 Acetaminophen (Tylenol Tab) 650 mg Q6H PRN PO PAIN LEVEL 1-3 OR FEVER Last administered on 02/26/17 17:48; Admin Dose 650 MG; Start 02/24/17 at 16:30 Acetaminophen (Tylenol Supp) 650 mg Q6H PRN [place] PAIN LEVEL 1-3 OR FEVER; Start 02/24/17 at 16:30 Acetaminophen/ Hydrocodone Bitart ([place] (5/325)) 1 tab Q6H PRN PO MODERATE PAIN LEVEL 4-6; Start 02/24/17 at 16:30 Acetaminophen/ Hydrocodone Bitart ([place] (5/325)) 2 tab Q6H PRN PO SEVERE PAIN LEVEL 7-10; Start 02/24/17 at 16:30 Morphine Sulfate (morphine) 2 mg Q4H PRN IV SEVERE PAIN LEVEL 7-10; Start 02/24 at 16:30 Docusate Sodium (Colace) 100 mg Q12H PRN PO CONSTIPATION; Start 02/24/17 at 16: 30 Magnesium Hydroxide (Milk Of Mag) 30 ml DAILY PRN PO CONSTIPATION; Start at 16:30 Bisacodyl (Dulcolax Supp) 10 mg DAILY PRN [place] CONSTIPATION; Start 02/24/17 at 16 :30 Diagnostic Test (Pha) (Accu-Chek) 1 ea 02 XX ; Start 02/25/17 at 02:00 Insulin Glargine 9 unit 9 unit DAILY@08 SC Last administered on 02/27/17 08:15 ; Admin Dose 9 UNIT; Start 02/25/17 at 08:00 Meropenem/Sodium Chloride (Merrem 1 Gm/50 ml (Pmx)) 50 ml @ 100 mls/hr Q12 IVPB Last administered on 02/27/17 08:12; Admin Dose 100 MLS/HR; Start at 19:00 Miscellaneous Information (Pending Santyl Order For Wound Care) This patient contreras... PRN PRN XX WOUND CARE; Start 02/24/17 at 19:00 Hydralazine HCl (Apresoline) 25 mg Q8H PRN PO ELEVATED SYSTOLIC BP Last administered on 02/26/17 02:56; Admin Dose 25 MG; Start 02/24/17 at 19:30 Guaifenesin/ Codeine Phosphate (Robitussin Ac Liquid Cup) 10 ml Q4H PRN PO COUGH Last administered on 02/27/17 05:39; Admin Dose 10 ML; Start 02/24/17 at 20:30 Miscellaneous Information 1 ea NOTE XX ; Start 02/24/17 at 21:00 Glucose (Glutose) 15 gm Q15M PRN PO DECREASED GLUCOSE; Start 02/24/17 at 21:00 Glucose (Glutose) 22.5 gm Q15M PRN PO DECREASED GLUCOSE; Start 02/24/17 at 21: 00 Dextrose (D50w Syringe) 25 ml Q15M PRN IV DECREASED GLUCOSE; Start 02/24/17 at 21:00 Dextrose (D50w Syringe) 50 ml Q15M PRN IV DECREASED GLUCOSE; Start 02/24/17 at 21:00 Glucagon (Glucagen) 1 mg Q15M PRN IM DECREASED GLUCOSE; Start 02/24/17 at 21:00 Glucose (Glutose) 15 gm Q15M PRN BUCCAL DECREASED GLUCOSE; Start 02/24/17 at 21 :00 Ferrous Sulfate (Ferrous Sulfate (Ec)) 325 mg BID PO Last administered on 08:13; Admin Dose 325 MG; Start 02/26/17 at 09:30 Pantoprazole 40 mg 40 mg DAILY@06 PO Last administered on 02/27/17 05:25; Admin Dose 40 MG; Start 02/27/17 at 06:00 Vancomycin HCl (Vancocin) 250 ml @ 125 mls/hr Q12H IVPB Last administered on 02/26/17 23:49; Admin Dose 125 MLS/HR; Start 02/27/17 at 00:00 Collagenase 1 applic 1 applic DAILY TOP Last administered on 02/27/17 08:13; Admin Dose 1 APPLIC; Start 02/27/17 at 09:00 Potassium Phosphate/Sodium Chloride (K Phos (Mm)/NS) 255 ml @ 63.75 mls/ hr ONCE ONCE IVPB ; Start 02/27/17 at 10:00; Stop 02/27/17 at 13:59 GALILEA VAZQUEZ Feb 27, 2017 09:27
[2017-02-27] MEDS ORDERED: POTASSIUM PHOSPHATE 15 MM in SOD CHLORIDE 0.9% 250 ML IVPB ONE (10:00)
[2017-02-27] MEDS: LISINOPRIL 5 MG TAB PO SCH (12:04)
[2017-02-27] MEDS: VANCOMYCIN 1 GM in NS 250 ML IVPB SCH (12:07)
[2017-02-27 12:09] VITALS: BP 154/65; PULSE 79
[2017-02-27 14:09] VITALS: BP 137/65; RESP 16
--- NOTE | 2017-02-27 14:30 | CONS ---
Date/Time of Note Date/Time of Note DATE: 02/27/17 TIME: 14:29 Assessment/Plan Assessment/Plan Chief Complaint/Hosp Course SUBJECTIVE DATA: No acute changes. The patient is alert. Feels good. Denies pain, discomfort. No fevers. MICROBIOLOGY: Left big toe wound culture growing Staph species. Blood cultures negative. Urine culture negative. DIAGNOSTICS: X-ray of the foot revealed osteomyelitis of the 1st distal phalanx, worsened since previously. Chest x-ray on admission revealed clear lung kirk. ANTIMICROBIALS: The patient is on: 1. IV vancomycin. 2. Meropenem. PHYSICAL EXAMINATION: GENERAL: Well nourished, well developed, elderly, man, who is alert, in no distress. HEENT: Head atraumatic, normocephalic. Sclerae anicteric. Buccal mucosa pink. NECK: Supple. CHEST: Rise symmetrical. Breath sounds clear. HEART: S1, S2. ABDOMEN: Soft, bowel sounds present. EXTREMITIES: Without cyanosis, left great toe with a wound, no drainage. ASSESSMENT: 1. Left great toe cellulitis with osteomyelitis. 2. Acute kidney injury. 3. Hypertension. 4. Diabetes. PLAN: The patient remains stable. Will change Merrem to Levaquin, continue Vanco, anticipate dc on current abx for 6 weeks, pending PICC, podiatry rec-s [facility] staff Problems: Consultation Date/Type/Reason Admit Date/Time Feb 24, 2017 at 15:05 Initial Consult Date Type of Consultation: ID Exam/Review of Systems Vital Signs Vitals Vital Signs Date Time Temp Pulse Resp B/P Pulse Ox O2 Delivery O2 Flow Rate FiO2 02/27/17 12:09 79 154/65 02/27/17 07:30 98.3 16 96 02/24/17 18:28 Room Air Intake and Output 02/26/17 02/26/17 02/27/17 15:00 23:00 07:00 Intake Total 400 ml 1536.6667 ml 730 ml Output Total 1000 ml 1350 ml Balance 400 ml 536.6667 ml -620 ml Results Result Diagram: 02/27/17 0447 02/27/17 0447 Results 24 hrs Laboratory Tests Test 02/26/17 17:17 02/26/17 20:52 02/27/17 02:36 02/27/17 04:47 Bedside Glucose 188 184 160 White Blood Count 16.9 H Red Blood Count 3.17 L Hemoglobin 8.6 L Hematocrit 26.1 L Mean Corpuscular Volume 82.3 Mean Corpuscular Hemoglobin 27.1 L Mean Corpuscular Hemoglobin Concent 33.0 Red Cell Distribution Width 13.4 Platelet Count 184 Mean Platelet Volume 12.1 H Neutrophils % 82.4 H Lymphocytes % 9.8 L Monocytes % 6.4 Eosinophils % 0.2 Basophils % 0.1 Nucleated Red Blood Cells % 0.0 Neutrophils # 13.9 H Lymphocytes # 1.7 Monocytes # 1.1 H Eosinophils # 0.0 Basophils # 0.0 Nucleated Red Blood Cells # 0.0 Sodium Level 138 Potassium Level 4.0 Chloride Level 108 Carbon Dioxide Level 23 Anion Gap 11 Blood Urea Nitrogen 17 Creatinine 0.95 Glucose Level 134 # Calcium Level 7.7 L Phosphorus Level 2.0 L Magnesium Level 1.8 Test 02/27/17 08:01 02/27/17 11:48 Bedside Glucose 163 186 Medications Medications Current Medications Aspirin (Aspirin) 81 mg DAILY PO Last administered on 02/27/17 08:13; Admin Dose 81 MG; Start 02/25/17 at 09:00 Atorvastatin Calcium (Lipitor) 40 mg HS PO Last administered on 02/26/17 20:53 ; Admin Dose 40 MG; Start 02/24/17 at 21:00 Metoprolol Tartrate (Lopressor) 25 mg BID PO Last administered on 02/27/17 08: 17; Admin Dose 25 MG; Start 02/24/17 at 21:00 Ondansetron HCl (Zofran Inj) 4 mg Q6H PRN IV NAUSEA AND/OR VOMITING Last administered on 02/25/17 00:40; Admin Dose 4 MG; Start 02/24/17 at 16:30 Acetaminophen (Tylenol Tab) 650 mg Q6H PRN PO PAIN LEVEL 1-3 OR FEVER Last administered on 02/26/17 17:48; Admin Dose 650 MG; Start 02/24/17 at 16:30 Acetaminophen (Tylenol Supp) 650 mg Q6H PRN [place] PAIN LEVEL 1-3 OR FEVER; Start 02/24/17 at 16:30 Acetaminophen/ Hydrocodone Bitart ([place] (5/325)) 1 tab Q6H PRN PO MODERATE PAIN LEVEL 4-6; Start 02/24/17 at 16:30 Acetaminophen/ Hydrocodone Bitart ([place] (5/325)) 2 tab Q6H PRN PO SEVERE PAIN LEVEL 7-10; Start 02/24/17 at 16:30 Morphine Sulfate (morphine) 2 mg Q4H PRN IV SEVERE PAIN LEVEL 7-10; Start 02/24 at 16:30 Docusate Sodium (Colace) 100 mg Q12H PRN PO CONSTIPATION; Start 02/24/17 at 16: 30 Magnesium Hydroxide (Milk Of Mag) 30 ml DAILY PRN PO CONSTIPATION; Start at 16:30 Bisacodyl (Dulcolax Supp) 10 mg DAILY PRN [place] CONSTIPATION; Start 02/24/17 at 16 :30 Diagnostic Test (Pha) (Accu-Chek) 1 ea 02 XX ; Start 02/25/17 at 02:00 Insulin Glargine 9 unit 9 unit DAILY@08 SC Last administered on 02/27/17 08:15 ; Admin Dose 9 UNIT; Start 02/25/17 at 08:00 Meropenem/Sodium Chloride (Merrem 1 Gm/50 ml (Pmx)) 50 ml @ 100 mls/hr Q12 IVPB Last administered on 02/27/17 08:12; Admin Dose 100 MLS/HR; Start at 19:00 Miscellaneous Information (Pending [facility] Order For Wound Care) This patient contreras... PRN PRN XX WOUND CARE; Start 02/24/17 at 19:00 Hydralazine HCl (Apresoline) 25 mg Q8H PRN PO ELEVATED SYSTOLIC BP Last administered on 02/26/17 02:56; Admin Dose 25 MG; Start 02/24/17 at 19:30 Guaifenesin/ Codeine Phosphate (Robitussin Ac Liquid Cup) 10 ml Q4H PRN PO COUGH Last administered on 02/27/17 05:39; Admin Dose 10 ML; Start 02/24/17 at 20:30 Miscellaneous Information 1 ea NOTE XX ; Start 02/24/17 at 21:00 Glucose (Glutose) 15 gm Q15M PRN PO DECREASED GLUCOSE; Start 02/24/17 at 21:00 Glucose (Glutose) 22.5 gm Q15M PRN PO DECREASED GLUCOSE; Start 02/24/17 at 21: 00 Dextrose (D50w Syringe) 25 ml Q15M PRN IV DECREASED GLUCOSE; Start 02/24/17 at 21:00 Dextrose (D50w Syringe) 50 ml Q15M PRN IV DECREASED GLUCOSE; Start 02/24/17 at 21:00 Glucagon (Glucagen) 1 mg Q15M PRN IM DECREASED GLUCOSE; Start 02/24/17 at 21:00 Glucose (Glutose) 15 gm Q15M PRN BUCCAL DECREASED GLUCOSE; Start 02/24/17 at 21 :00 Ferrous Sulfate (Ferrous Sulfate (Ec)) 325 mg BID PO Last administered on 08:13; Admin Dose 325 MG; Start 02/26/17 at 09:30 Pantoprazole 40 mg 40 mg DAILY@06 PO Last administered on 02/27/17 05:25; Admin Dose 40 MG; Start 02/27/17 at 06:00 Vancomycin HCl (Vancocin) 250 ml @ 125 mls/hr Q12H IVPB Last administered on 02/27/17 12:07; Admin Dose 125 MLS/HR; Start 02/27/17 at 00:00 Collagenase (Santyl) 1 applic DAILY TOP Last administered on 02/27/17 08:13; Admin Dose 1 APPLIC; Start 02/27/17 at 09:00 Lisinopril (Zestril) 5 mg DAILY PO Last administered on 02/27/17 12:04; Admin Dose 5 MG; Start 02/27/17 at 11:00 DIOR DOUGLASS NP Feb 27, 2017 14:30
[2017-02-27] MEDS ORDERED: LIDOCAINE 1% (MPF) 5 ML VIAL SC ONE (16:30)
[2017-02-27] MEDS: ACETAMINOPHEN 325 MG TAB PO PRN (17:06)
--- NOTE | 2017-02-27 19:06 | RADRPT ---
PROCEDURE: US guidance for PICC line CLINICAL INDICATION: PICC line placement TECHNIQUE: Multiple real-time images were acquired of the patient's arm utilizing a high resolutio n transducer. This was performed by the PICC line nurse for venous access. COMPARISON: None FINDINGS: See impression. IMPRESSION: Ultrasound guidance for PICC line placement. There is a patent and compressible left upper extremity vein. RPTAT: AA Physician Paola Date Time Electronically viewed and signed by David Meyer Physician on 02/27/2017 19:06 /
--- NOTE | 2017-02-27 19:07 | RADRPT ---
PROCEDURE: XR Chest. CLINICAL INDICATION: Check Line Placement TECHNIQUE: Single frontal view of the chest was obtained. COMPARISON: Chest x-ray from 02/24/2017 FINDINGS: There has been interval placement of a left-sided PICC line with its tip in the inferior SVC. There is stable mild cardiomegaly. There is increased subsegmental left greater than right basilar atelectasis. There is no significant pleural effusion or pneumothorax. IMPRESSION: Interval placement of a left-sided PICC line. Stable mild cardiomegaly. Increased left greater than right basilar atelectasis. RPTAT: EE Physician Paola Date Time Electronically viewed and signed by Physician Paola on 02/27/2017 19:07 /
[2017-02-27 20:02] VITALS: BP 146/72; RESP 18
[2017-02-27] MEDS: ATORVASTATIN 40 MG TAB PO SCH (21:24)
[2017-02-27 21:31] VITALS: BP 146/65; PULSE 72
[2017-02-28] MEDS: VANCOMYCIN 1 GM in NS 250 ML IVPB SCH ×2 (00:04→12:07)
[2017-02-28 02:00] VITALS: BP 160/71; RESP 18
[2017-02-28] MEDS: ACCU-CHEK XX SCH (02:00)
[2017-02-28] MEDS: PANTOPRAZOLE (EC) 40 MG TAB PO SCH (05:13)
[2017-02-28 05:42] LABS: HEMATOCRIT 27.7 % (42.0-52.0); MEAN CORPUSCULAR HEMOGLOBIN 26.8 pg (29.0-33.0); MEAN CORPUSCULAR HGB CONC 32.5 g/dl (32.0-37.0); MEAN CORPUSCULAR VOLUME 82.4 fl (82.0-101.0); MEAN PLATELET VOLUME 11.5 fl (7.4-10.4); PLATELET COUNT 233 10^3/UL (140-415); RED BLOOD COUNT 3.36 10^6/ul (4.70-6.10); RED CELL DISTRIBUTION WIDTH 13.3 % (11.5-14.5); WHITE BLOOD COUNT 13.9 10^3/ul (4.8-10.8)
[2017-02-28 05:43] LABS: BASOPHILS % 0.1 % (0.0-2.0); EOSINOPHILS # 0.3 10^3/ul (0.0-0.5); LYMPHOCYTES # 1.5 10^3/ul (0.8-2.9); LYMPHOCYTES % 10.9 % (15.0-51.0); MONOCYTE # 1.1 10^3/ul (0.3-0.9); NEUTROPHIL # 10.8 10^3/ul (1.6-7.5); NEUTROPHILS % 78.3 % (39.0-77.0)
[2017-02-28] MEDS ORDERED: LEVOFLOXACIN 500 MG TAB PO SCH (06:00)
[2017-02-28 06:02] LABS: CALCIUM 8.1 mg/dl (8.4-10.2); CREATININE 0.9 mg/dl (0.61-1.24); POTASSIUM 3.5 mmol/L (3.5-5.1)
[2017-02-28 06:11] LABS: MAGNESIUM 1.5 mg/dl (1.7-2.5); PHOSPHORUS 2.1 mg/dl (2.5-4.9)
[2017-02-28 07:14] LABS: CALCIUM 8.2 mg/dl (8.4-10.2); CREATININE 0.88 mg/dl (0.61-1.24); POTASSIUM 3.7 mmol/L (3.5-5.1)
[2017-02-28 08:00] VITALS: BP 116/55; RESP 18
[2017-02-28] MEDS: INSULIN ASPART [NOVOLOG] 3 ML PEN SC SCH ×4 (08:00→20:39)
[2017-02-28] MEDS: INSULIN GLARGINE [LANtus] 3 ML PEN SC SCH (08:06)
[2017-02-28] MEDS: COLLAGENASE 30 GM TUBE TOP SCH (08:08)
[2017-02-28] MEDS: FERROUS SULFATE (EC) 325 MG TAB PO SCH ×2 (08:10→20:38)
[2017-02-28] MEDS: ASPIRIN 81 MG TAB PO SCH (08:11)
[2017-02-28] MEDS: LISINOPRIL 5 MG TAB PO SCH ×2 (08:11→14:08)
[2017-02-28] MEDS: METOPROLOL 25 MG TAB PO SCH ×3 (08:11→20:42)
--- NOTE | 2017-02-28 12:17 | PN ---
Date/Time of Note Date/Time of Note DATE: 02/28/17 TIME: 12:13 Assessment/Plan VTE Prophylaxis VTE Prophylaxis Intervention: SCD's Lines/Catheters IV Catheter Type (from Nrs): PICC Line Central line still needed: Yes Urinary Cath still in place: No Assessment/Plan Chief Complaint/Hosp Course 1. CHARISSE: Pre-renal in nature and resolved. He does have 1.5 grams of proteinuria and ACEi resumed. 2. HTN: CPM, ACEi resumed. 3. Hypomagnesemia: secondary to PPI, no diarrhea reported. will give 3 grams mag sulfate today. He does have a history of erosive esophagitis and gastritis as such will hold off julio cesar changing to H2 destini for now. 4. Hypophosphatemia: Will check Vit D levels and PTH. will administer 20 mmol fo sodium phos today. Not on any antacids and unclear why remains persistently hypophosphatemic as renal adaptation should occur and increase absorption. Will start with small w/u by checking vit d and pth levels for now. 5. Osteomyelitis: Left first distal phalanx, as per ID and podiatry colleagues. 6. Anemia chronic disease: no role for FOUZIA as GFR not significantly impaired. He is iron deficient but will hold off on IV iron in setting of infection and place on oral iron for now. 7. Subnephrotic Range Proteinuria: 1.5 grams and likely secondary to DMII, ACEi resumed. Meds reviewed. Discussed with patient. call if ? [phone]. Thank you. Problems: Subjective 24 Hr Interval Summary Free Text/Dictation Patient being seen for CHARISSE. No overnight events noted. Constitutional: no complaints Eyes: no complaints ENT: no complaints Respiratory: no complaints Cardiovascular: no complaints Genitourinary: no complaints Psychological: no complaints Exam/Review of Systems Vital Signs Vitals Vital Signs Date Time Temp Pulse Resp B/P Pulse Ox O2 Delivery O2 Flow Rate FiO2 02/28/17 08:00 98.7 91 18 116/55 94 02/24/17 18:28 Room Air Intake and Output 02/27/17 02/27/17 02/28/17 15:00 23:00 07:00 Intake Total 300 ml 825 ml 730 ml Output Total 600 ml Balance 300 ml 825 ml 130 ml Exam Constitutional: alert, oriented Psych: no complaints Head: normocephalic Eyes: nl conjunctiva ENMT: nl external ears & nose Neck: supple Respiratory: clear to auscultation Cardiovascular: regular rate and rhythm Gastrointestinal: soft Extremities: normal pulses Neurological: INSTRUCTOR PRIVATE II-XII intact Skin: nl turgor Results Result Diagram: 02/28/17 0511 02/28/17 0511 Results 24 hrs Laboratory Tests Test 02/27/17 17:01 02/27/17 21:23 02/28/17 05:11 02/28/17 08:05 Bedside Glucose 137 165 138 White Blood Count 13.9 H Red Blood Count 3.36 L Hemoglobin 9.0 L Hematocrit 27.7 L Mean Corpuscular Volume 82.4 Mean Corpuscular Hemoglobin 26.8 L Mean Corpuscular Hemoglobin Concent 32.5 Red Cell Distribution Width 13.3 Platelet Count 233 # Mean Platelet Volume 11.5 H Neutrophils % 78.3 H Lymphocytes % 10.9 L Monocytes % 8.0 Eosinophils % 2.0 Basophils % 0.1 Nucleated Red Blood Cells % 0.0 Neutrophils # 10.8 H Lymphocytes # 1.5 Monocytes # 1.1 H Eosinophils # 0.3 Basophils # 0.0 Nucleated Red Blood Cells # 0.0 Sodium Level 139 Potassium Level 3.5 Chloride Level 107 Carbon Dioxide Level 25 Anion Gap 11 Blood Urea Nitrogen 16 Creatinine 0.90 Glucose Level 139 Calcium Level 8.1 L Phosphorus Level 2.0 L Magnesium Level 1.5 L Albumin 3.0 L Test 02/28/17 12:03 Bedside Glucose 191 Medications Medications Current Medications Aspirin (Aspirin) 81 mg DAILY PO Last administered on 02/27/17 08:13; Admin Dose 81 MG; Start 02/25/17 at 09:00 Atorvastatin Calcium (Lipitor) 40 mg HS PO Last administered on 02/27/17 21:24 ; Admin Dose 40 MG; Start 02/24/17 at 21:00 Metoprolol Tartrate (Lopressor) 25 mg BID PO Last administered on 02/27/17 21: 28; Admin Dose 25 MG; Start 02/24/17 at 21:00 Ondansetron HCl (Zofran Inj) 4 mg Q6H PRN IV NAUSEA AND/OR VOMITING Last administered on 02/25/17 00:40; Admin Dose 4 MG; Start 02/24/17 at 16:30 Acetaminophen (Tylenol Tab) 650 mg Q6H PRN PO PAIN LEVEL 1-3 OR FEVER Last administered on 02/27/17 17:06; Admin Dose 650 MG; Start 02/24/17 at 16:30 Acetaminophen (Tylenol Supp) 650 mg Q6H PRN [place] PAIN LEVEL 1-3 OR FEVER; Start 02/24/17 at 16:30 Acetaminophen/ Hydrocodone Bitart ([place] (5/325)) 1 tab Q6H PRN PO MODERATE PAIN LEVEL 4-6; Start 02/24/17 at 16:30 Acetaminophen/ Hydrocodone Bitart ([place] (5/325)) 2 tab Q6H PRN PO SEVERE PAIN LEVEL 7-10; Start 02/24/17 at 16:30 Morphine Sulfate (morphine) 2 mg Q4H PRN IV SEVERE PAIN LEVEL 7-10; Start 02/24 at 16:30 Docusate Sodium (Colace) 100 mg Q12H PRN PO CONSTIPATION; Start 02/24/17 at 16: 30 Magnesium Hydroxide (Milk Of Mag) 30 ml DAILY PRN PO CONSTIPATION; Start at 16:30 Bisacodyl (Dulcolax Supp) 10 mg DAILY PRN [place] CONSTIPATION; Start 02/24/17 at 16 :30 Diagnostic Test (Pha) (Accu-Chek) 1 ea 02 XX ; Start 02/25/17 at 02:00 Insulin Glargine (Lantus) 9 unit DAILY@08 SC Last administered on 02/28/17 08: 06; Admin Dose 9 UNIT; Start 02/25/17 at 08:00 Miscellaneous Information (Pending [facility] Order For Wound Care) This patient contreras... PRN PRN XX WOUND CARE; Start 02/24/17 at 19:00 Hydralazine HCl (Apresoline) 25 mg Q8H PRN PO ELEVATED SYSTOLIC BP Last administered on 02/26/17 02:56; Admin Dose 25 MG; Start 02/24/17 at 19:30 Guaifenesin/ Codeine Phosphate (Robitussin Ac Liquid Cup) 10 ml Q4H PRN PO COUGH Last administered on 02/27/17 05:39; Admin Dose 10 ML; Start 02/24/17 at 20:30 Miscellaneous Information 1 ea NOTE XX ; Start 02/24/17 at 21:00 Glucose (Glutose) 15 gm Q15M PRN PO DECREASED GLUCOSE; Start 02/24/17 at 21:00 Glucose (Glutose) 22.5 gm Q15M PRN PO DECREASED GLUCOSE; Start 02/24/17 at 21: 00 Dextrose (D50w Syringe) 25 ml Q15M PRN IV DECREASED GLUCOSE; Start 02/24/17 at 21:00 Dextrose (D50w Syringe) 50 ml Q15M PRN IV DECREASED GLUCOSE; Start 02/24/17 at 21:00 Glucagon (Glucagen) 1 mg Q15M PRN IM DECREASED GLUCOSE; Start 02/24/17 at 21:00 Glucose (Glutose) 15 gm Q15M PRN BUCCAL DECREASED GLUCOSE; Start 02/24/17 at 21 :00 Ferrous Sulfate (Ferrous Sulfate (Ec)) 325 mg BID PO Last administered on 21:25; Admin Dose 325 MG; Start 02/26/17 at 09:30 Pantoprazole 40 mg 40 mg DAILY@06 PO Last administered on 02/28/17 05:13; Admin Dose 40 MG; Start 02/27/17 at 06:00 Vancomycin HCl (Vancocin) 250 ml @ 125 mls/hr Q12H IVPB Last administered on 02/28/17 00:04; Admin Dose 125 MLS/HR; Start 02/27/17 at 00:00 Collagenase (Santyl) 1 applic DAILY TOP Last administered on 02/28/17 08:08; Admin Dose 1 APPLIC; Start 02/27/17 at 09:00 Lisinopril (Zestril) 5 mg DAILY PO Last administered on 02/27/17 12:04; Admin Dose 5 MG; Start 02/27/17 at 11:00 Levofloxacin (Levaquin) 500 mg DAILY@06 PO Last administered on 02/28/17 05:13 ; Admin Dose 500 MG; Start 02/28/17 at 06:00 IV Flush 10 ml 10 ml PRN PRN IV IV PROTOCOL; Start 02/27/17 at 20:00 Sodium Phosphate 20 mmol/Sodium Chloride 256.6667 ml @ 64.167 m... ONCE ONCE IVPB ; Start 02/28/17 at 13:30; Stop 02/28/17 at 17:29 Magnesium Sulfate/ Sodium Chloride (Magnesium Sulfate/NS) 106 ml @ 35.333 mls/ hr ONCE ONCE IVPB ; Start 02/28/17 at 14:00; Stop 02/28/17 at 16:59 AMRYBEL OLIVIER MD Feb 28, 2017 12:17
[2017-02-28] MEDS ORDERED: SOD CHLORIDE 0.9% IVPB ONE (13:30)
[2017-02-28] MEDS ORDERED: SODIUM PHOSPHATE IVPB ONE (13:30)
[2017-02-28 14:00] VITALS: BP 192/93; RESP 18
[2017-02-28] MEDS ORDERED: MAGNESIUM SULFATE 3 GM in SOD CHLORIDE 0.9% 100 ML IVPB ONE (14:00)
--- NOTE | 2017-02-28 14:21 | PDOCDIS ---
Discharge Instructions DIAGNOSIS Discharge Diagnosis Osteomyelitis of the first distal phalanx on the left side with overlying cellulitis of the left first toe CONDITION Patient Condition: Stable HOME CARE INSTRUCTIONS: Special Diet: Carbohydrate controlled FOLLOW UP/APPOINTMENTS Follow-up Plan Bud Nielsen DPM, Podiatry. [id number] [place] [address] Office OTHER ORDERS: Other Orders: 1. Carbohydrate controlled diet. 2. Take medication as per prescription. Complete the course of antibiotics. 3. Activities as tolerated. 4. Follow-up with Dr. Nielsen in 2 weeks. Please call for appointment. 5. Follow-up with your PCP in 1 week. LEW HERNANDEZ NP Feb 28, 2017 14:21
[2017-02-28] MEDS ORDERED: LEVO500T72 PO (14:23)
[2017-02-28] MEDS ORDERED: FER325 PO (14:23)
[2017-02-28] MEDS ORDERED: LANT3I SC (14:27)
[2017-02-28] MEDS ORDERED: Vancomycin Iv Per Pharmacy XX (14:27)
[2017-02-28 15:22] VITALS: BP 137/60; PULSE 81
--- NOTE | 2017-02-28 16:18 | PN ---
Date/Time of Note Date/Time of Note DATE: 02/28/17 TIME: 16:16 Assessment/Plan VTE Prophylaxis VTE Prophylaxis Intervention: SCD's Lines/Catheters IV Catheter Type (from Nrs): PICC Line Central line still needed: Yes Urinary Cath still in place: No Assessment/Plan Chief Complaint/Hosp Course 1. Osteomyelitis of the first distal phalanx on the left side with left first toe cellulitis. On antibiotics as per infectious diseases. Podiatry evaluation ongoing. 2. Diabetes mellitus. Unknown type. Hemoglobin A1C 8.2. Continue sliding scale insulin along with basal insulin. 3. Essential hypertension. Continue antihypertensives. 4. Iron deficiency anemia. Continue iron supplements. 5. Acute kidney injury. Probably prerenal in origin. Resolved status post IV hydration.. 6. Fluids, electrolytes, and nutrition. Carbohydrate controlled diet. 7. DVT prophylaxis. Bilateral sequential compression devices. 8.. Continue antimicrobials as per infectious disease. Status post PICC line insertion. Plan is to discharge the patient home on long-term IV antibiotics once case management arrange his outpatient IV antibiotics. Case discussed with Dr. Patten. Problems: Subjective 24 Hr Interval Summary Free Text/Dictation Denies any complaints. Exam/Review of Systems Vital Signs Vitals Vital Signs Date Time Temp Pulse Resp B/P Pulse Ox O2 Delivery O2 Flow Rate FiO2 02/28/17 15:22 81 137/60 02/28/17 14:00 98.8 18 96 02/24/17 18:28 Room Air Intake and Output 02/27/17 02/27/17 02/28/17 15:00 23:00 07:00 Intake Total 300 ml 825 ml 730 ml Output Total 600 ml Balance 300 ml 825 ml 130 ml Exam General: Adequately build 66 year-old male lying in bed in no apparent distress. HEENT: Normocephalic, atraumatic. Eyes: Anicteric sclerae, conjunctivae clear. ENT: Nasal septum midline, oral mucosa moist. Neck supple, no JVD noticed. Respiratory: Bilaterally clear breath sounds. No use of accessory muscles of respiration. No adventitious breath sounds. Cardiovascular: S1, S2 heard. No murmurs or gallops. Abdomen: Soft, nontender, and nondistended. Bowel sounds positive in all 4 quadrants. Genitourinary: Deferred. Extremities: No cyanosis, no clubbing, no edema. Peripheral pulses palpable. Neurologic: Cranial nerves II through XII grossly intact. The patient is awake, alert, and oriented. Skin: Normal skin turgor. No skin rashes. Results Result Diagram: 02/28/1751002/28/17 05 Results 24 hrs Laboratory Tests Test 02/27/17 17:01 02/27/17 21:23 02/28/17 05:11 02/28/17 08:05 Bedside Glucose 137 165 138 White Blood Count 13.9 H Red Blood Count 3.36 L Hemoglobin 9.0 L Hematocrit 27.7 L Mean Corpuscular Volume 82.4 Mean Corpuscular Hemoglobin 26.8 L Mean Corpuscular Hemoglobin Concent 32.5 Red Cell Distribution Width 13.3 Platelet Count 233 # Mean Platelet Volume 11.5 H Neutrophils % 78.3 H Lymphocytes % 10.9 L Monocytes % 8.0 Eosinophils % 2.0 Basophils % 0.1 Nucleated Red Blood Cells % 0.0 Neutrophils # 10.8 H Lymphocytes # 1.5 Monocytes # 1.1 H Eosinophils # 0.3 Basophils # 0.0 Nucleated Red Blood Cells # 0.0 Sodium Level 139 Potassium Level 3.5 Chloride Level 107 Carbon Dioxide Level 25 Anion Gap 11 Blood Urea Nitrogen 16 Creatinine 0.90 Glucose Level 139 Calcium Level 8.1 L Phosphorus Level 2.0 L Magnesium Level 1.5 L Albumin 3.0 L Test 02/28/17 12:03 Bedside Glucose 191 Medications Medications Current Medications Aspirin (Aspirin) 81 mg DAILY PO Last administered on 02/27/17 08:13; Admin Dose 81 MG; Start 02/25/17 at 09:00 Atorvastatin Calcium (Lipitor) 40 mg HS PO Last administered on 02/27/17 21:24 ; Admin Dose 40 MG; Start 02/24/17 at 21:00 Metoprolol Tartrate (Lopressor) 25 mg BID PO Last administered on 02/28/17 14: 07; Admin Dose 25 MG; Start 02/24/17 at 21:00 Ondansetron HCl (Zofran Inj) 4 mg Q6H PRN IV NAUSEA AND/OR VOMITING Last administered on 02/25/17 00:40; Admin Dose 4 MG; Start 02/24/17 at 16:30 Acetaminophen (Tylenol Tab) 650 mg Q6H PRN PO PAIN LEVEL 1-3 OR FEVER Last administered on 02/27/17 17:06; Admin Dose 650 MG; Start 02/24/17 at 16:30 Acetaminophen (Tylenol Supp) 650 mg Q6H PRN [place] PAIN LEVEL 1-3 OR FEVER; Start 02/24/17 at 16:30 Acetaminophen/ Hydrocodone Bitart ([place] (5/325)) 1 tab Q6H PRN PO MODERATE PAIN LEVEL 4-6; Start 02/24/17 at 16:30 Acetaminophen/ Hydrocodone Bitart ([place] (5/325)) 2 tab Q6H PRN PO SEVERE PAIN LEVEL 7-10; Start 02/24/17 at 16:30 Morphine Sulfate (morphine) 2 mg Q4H PRN IV SEVERE PAIN LEVEL 7-10; Start 02/24 at 16:30 Docusate Sodium (Colace) 100 mg Q12H PRN PO CONSTIPATION; Start 02/24/17 at 16: 30 Magnesium Hydroxide (Milk Of Mag) 30 ml DAILY PRN PO CONSTIPATION; Start at 16:30 Bisacodyl (Dulcolax Supp) 10 mg DAILY PRN [place] CONSTIPATION; Start 02/24/17 at 16 :30 Diagnostic Test (Pha) (Accu-Chek) 1 ea 02 XX ; Start 02/25/17 at 02:00 Insulin Glargine (Lantus) 9 unit DAILY@08 SC Last administered on 02/28/17 08: 06; Admin Dose 9 UNIT; Start 02/25/17 at 08:00 Miscellaneous Information [facility] This patient contreras... PRN PRN XX WOUND CARE; Start 02/24/17 at 19:00 Hydralazine HCl (Apresoline) 25 mg Q8H PRN PO ELEVATED SYSTOLIC BP Last administered on 02/28/17 14:05; Admin Dose 25 MG; Start 02/24/17 at 19:30 Guaifenesin/ Codeine Phosphate (Robitussin Ac Liquid Cup) 10 ml Q4H PRN PO COUGH Last administered on 02/27/17 05:39; Admin Dose 10 ML; Start 02/24/17 at 20:30 Miscellaneous Information 1 ea NOTE XX ; Start 02/24/17 at 21:00 Glucose (Glutose) 15 gm Q15M PRN PO DECREASED GLUCOSE; Start 02/24/17 at 21:00 Glucose (Glutose) 22.5 gm Q15M PRN PO DECREASED GLUCOSE; Start 02/24/17 at 21: 00 Dextrose (D50w Syringe) 25 ml Q15M PRN IV DECREASED GLUCOSE; Start 02/24/17 at 21:00 Dextrose (D50w Syringe) 50 ml Q15M PRN IV DECREASED GLUCOSE; Start 02/24/17 at 21:00 Glucagon (Glucagen) 1 mg Q15M PRN IM DECREASED GLUCOSE; Start 02/24/17 at 21:00 Glucose (Glutose) 15 gm Q15M PRN BUCCAL DECREASED GLUCOSE; Start 02/24/17 at 21 :00 Ferrous Sulfate (Ferrous Sulfate (Ec)) 325 mg BID PO Last administered on 21:25; Admin Dose 325 MG; Start 02/26/17 at 09:30 Pantoprazole 40 mg 40 mg DAILY@06 PO Last administered on 02/28/17 05:13; Admin Dose 40 MG; Start 02/27/17 at 06:00 Vancomycin HCl (Vancocin) 250 ml @ 125 mls/hr Q12H IVPB Last administered on 02/28/17 12:07; Admin Dose 125 MLS/HR; Start 02/27/17 at 00:00 Collagenase (Santyl) 1 applic DAILY TOP Last administered on 02/28/17 08:08; Admin Dose 1 APPLIC; Start 02/27/17 at 09:00 Lisinopril (Zestril) 5 mg DAILY PO Last administered on 02/28/17 14:08; Admin Dose 5 MG; Start 02/27/17 at 11:00 Levofloxacin (Levaquin) 500 mg DAILY@06 PO Last administered on 02/28/17 05:13 ; Admin Dose 500 MG; Start 02/28/17 at 06:00 IV Flush 10 ml 10 ml PRN PRN IV IV PROTOCOL; Start 02/27/17 at 20:00 Sodium Phosphate 20 mmol/Sodium Chloride 256.6667 ml @ 64.167 m... ONCE ONCE IVPB Last administered on 02/28/17 14:16; Admin Dose 64.167 MLS/HR; Start 02/28/17 at 13:30; Stop 02/28/17 at 17:29 Magnesium Sulfate/ Sodium Chloride (Magnesium Sulfate/NS) 106 ml @ 35.333 mls/ hr ONCE ONCE IVPB ; Start 02/28/17 at 14:00; Stop 02/28/17 at 16:59 Miscellaneous Information (*Rx Drug Level Order Reminder*) VANCOMYCIN TROUGH AT 2300 ONCE ONCE XX ; Start 02/28/17 at 23:00; Stop 02/28/17 at 23:01 LEW HERNANDEZ NP Feb 28, 2017 16:17
--- NOTE | 2017-02-28 19:21 | CONS ---
Date/Time of Note Date/Time of Note DATE: 02/28/17 TIME: 19:20 Assessment/Plan Assessment/Plan Chief Complaint/Hosp Course SUBJECTIVE DATA: No acute changes. The patient is alert. Feels good. Denies pain, discomfort. No fevers. MICROBIOLOGY: Left big toe wound culture growing Staph species. Blood cultures negative. Urine culture negative. DIAGNOSTICS: X-ray of the foot revealed osteomyelitis of the 1st distal phalanx, worsened since previously. Chest x-ray on admission revealed clear lung kirk. ANTIMICROBIALS: The patient is on: 1. IV vancomycin. 2. Levaquin. PHYSICAL EXAMINATION: GENERAL: Well nourished, well developed, elderly, man, who is alert, in no distress. HEENT: Head atraumatic, normocephalic. Sclerae anicteric. Buccal mucosa pink. NECK: Supple. CHEST: Rise symmetrical. Breath sounds clear. HEART: S1, S2. ABDOMEN: Soft, bowel sounds present. EXTREMITIES: Without cyanosis, left great toe with a wound, no drainage. ASSESSMENT: 1. Left great toe cellulitis with osteomyelitis. 2. Acute kidney injury. 3. Hypertension. 4. Diabetes. PLAN: The patient remains stable. S/p PICC, anticipate dc on current abx for 6 weeks, f/u with podiatry [facility] staff Problems: Consultation Date/Type/Reason Admit Date/Time Feb 24, 2017 at 15:05 Type of Consultation: ID Exam/Review of Systems Vital Signs Vitals Vital Signs Date Time Temp Pulse Resp B/P Pulse Ox O2 Delivery O2 Flow Rate FiO2 02/28/17 15:22 81 137/60 02/28/17 14:00 98.8 18 96 02/24/17 18:28 Room Air Intake and Output 02/27/17 02/27/17 02/28/17 15:00 23:00 07:00 Intake Total 300 ml 825 ml 730 ml Output Total 600 ml Balance 300 ml 825 ml 130 ml Results Result Diagram: 02/28/17 0511 02/28/17 0511 Results 24 hrs Laboratory Tests Test 02/27/17 21:23 02/28/17 05:11 02/28/17 08:05 02/28/17 12:03 Bedside Glucose 165 138 191 White Blood Count 13.9 H Red Blood Count 3.36 L Hemoglobin 9.0 L Hematocrit 27.7 L Mean Corpuscular Volume 82.4 Mean Corpuscular Hemoglobin 26.8 L Mean Corpuscular Hemoglobin Concent 32.5 Red Cell Distribution Width 13.3 Platelet Count 233 # Mean Platelet Volume 11.5 H Neutrophils % 78.3 H Lymphocytes % 10.9 L Monocytes % 8.0 Eosinophils % 2.0 Basophils % 0.1 Nucleated Red Blood Cells % 0.0 Neutrophils # 10.8 H Lymphocytes # 1.5 Monocytes # 1.1 H Eosinophils # 0.3 Basophils # 0.0 Nucleated Red Blood Cells # 0.0 Sodium Level 139 Potassium Level 3.5 Chloride Level 107 Carbon Dioxide Level 25 Anion Gap 11 Blood Urea Nitrogen 16 Creatinine 0.90 Glucose Level 139 Calcium Level 8.1 L Phosphorus Level 2.0 L Magnesium Level 1.5 L Albumin 3.0 L Test 02/28/17 17:44 Bedside Glucose 173 Medications Medications Current Medications Aspirin (Aspirin) 81 mg DAILY PO Last administered on 02/27/17 08:13; Admin Dose 81 MG; Start 02/25/17 at 09:00 Atorvastatin Calcium (Lipitor) 40 mg HS PO Last administered on 02/27/17 21:24 ; Admin Dose 40 MG; Start 02/24/17 at 21:00 Metoprolol Tartrate (Lopressor) 25 mg BID PO Last administered on 02/28/17 14: 07; Admin Dose 25 MG; Start 02/24/17 at 21:00 Ondansetron HCl (Zofran Inj) 4 mg Q6H PRN IV NAUSEA AND/OR VOMITING Last administered on 02/25/17 00:40; Admin Dose 4 MG; Start 02/24/17 at 16:30 Acetaminophen (Tylenol Tab) 650 mg Q6H PRN PO PAIN LEVEL 1-3 OR FEVER Last administered on 02/27/17 17:06; Admin Dose 650 MG; Start 02/24/17 at 16:30 Acetaminophen (Tylenol Supp) [address] PAIN LEVEL 1-3 OR FEVER; Start 02/24/17 at 16:30 Acetaminophen/ Hydrocodone Bitart ([place] (5/325)) 1 tab Q6H PRN PO MODERATE PAIN LEVEL 4-6; Start 02/24/17 at 16:30 Acetaminophen/ Hydrocodone Bitart ([place] (5/325)) 2 tab Q6H PRN PO SEVERE PAIN LEVEL 7-10; Start 02/24/17 at 16:30 Morphine Sulfate (morphine) 2 mg Q4H PRN IV SEVERE PAIN LEVEL 7-10; Start 02/24 at 16:30 Docusate Sodium (Colace) 100 mg Q12H PRN PO CONSTIPATION; Start 02/24/17 at 16: 30 Magnesium Hydroxide (Milk Of Mag) 30 ml DAILY PRN PO CONSTIPATION; Start at 16:30 Bisacodyl (Dulcolax Supp) [address] CONSTIPATION; Start 02/24/17 at 16 :30 Diagnostic Test (Pha) (Accu-Chek) 1 ea 02 XX ; Start 02/25/17 at 02:00 Insulin Glargine (Lantus) 9 unit DAILY@08 SC Last administered on 02/28/17 08: 06; Admin Dose 9 UNIT; Start 02/25/17 at 08:00 Miscellaneous Information (Pending [facility] Order For Wound Care) This patient contreras... PRN PRN XX WOUND CARE; Start 02/24/17 at 19:00 Hydralazine HCl (Apresoline) 25 mg Q8H PRN PO ELEVATED SYSTOLIC BP Last administered on 02/28/17 14:05; Admin Dose 25 MG; Start 02/24/17 at 19:30 Guaifenesin/ Codeine Phosphate (Robitussin Ac Liquid Cup) 10 ml Q4H PRN PO COUGH Last administered on 02/27/17 05:39; Admin Dose 10 ML; Start 02/24/17 at 20:30 Miscellaneous Information 1 ea NOTE XX ; Start 02/24/17 at 21:00 Glucose (Glutose) 15 gm Q15M PRN PO DECREASED GLUCOSE; Start 02/24/17 at 21:00 Glucose (Glutose) 22.5 gm Q15M PRN PO DECREASED GLUCOSE; Start 02/24/17 at 21: 00 Dextrose (D50w Syringe) 25 ml Q15M PRN IV DECREASED GLUCOSE; Start 02/24/17 at 21:00 Dextrose (D50w Syringe) 50 ml Q15M PRN IV DECREASED GLUCOSE; Start 02/24/17 at 21:00 Glucagon (Glucagen) 1 mg Q15M PRN IM DECREASED GLUCOSE; Start 02/24/17 at 21:00 Glucose (Glutose) 15 gm Q15M PRN BUCCAL DECREASED GLUCOSE; Start 02/24/17 at 21 :00 Ferrous Sulfate (Ferrous Sulfate (Ec)) 325 mg BID PO Last administered on 21:25; Admin Dose 325 MG; Start 02/26/17 at 09:30 Pantoprazole 40 mg 40 mg DAILY@06 PO Last administered on 02/28/17 05:13; Admin Dose 40 MG; Start 02/27/17 at 06:00 Vancomycin HCl (Vancocin) 250 ml @ 125 mls/hr Q12H IVPB Last administered on 02/28/17 12:07; Admin Dose 125 MLS/HR; Start 02/27/17 at 00:00 Collagenase (Santyl) 1 applic DAILY TOP Last administered on 02/28/17 08:08; Admin Dose 1 APPLIC; Start 02/27/17 at 09:00 Lisinopril (Zestril) 5 mg DAILY PO Last administered on 02/28/17 14:08; Admin Dose 5 MG; Start 02/27/17 at 11:00 Levofloxacin (Levaquin) 500 mg DAILY@06 PO Last administered on 02/28/17 05:13 ; Admin Dose 500 MG; Start 02/28/17 at 06:00 IV Flush (NS 10 ml) 10 ml PRN PRN IV IV PROTOCOL; Start 02/27/17 at 20:00 Miscellaneous Information (*Rx Drug Level Order Reminder*) VANCOMYCIN TROUGH AT 2300 ONCE ONCE XX ; Start 02/28/17 at 23:00; Stop 02/28/17 at 23:01 DIOR DOUGLASS NP Feb 28, 2017 19:21
[2017-02-28 20:27] LABS: PTH CALCIUM 7.3 mg/dL (8.6-10.3)
[2017-02-28] MEDS: ATORVASTATIN 40 MG TAB PO SCH (20:38)
--- NOTE | 2017-03-02 06:45 | DS ---
DATE OF ADMISSION: 02/24/2017 DATE OF DISCHARGE: 02/28/2017 FINAL DIAGNOSES: 1. Osteomyelitis of the first distal phalanx on the left side with left first toe cellulitis. To be discharged on long-term IV antibiotics. 2. Diabetes mellitus. 3. Essential hypertension. 4. Iron deficiency anemia. 5. Acute kidney injury, resolved. CONSULTANTS: 1. Dr. Alfredo Arroyo, infectious diseases. 2. Dr. Bud Nielsen, podiatry. 3. Dr. Paulino Saravia, nephrology. HOSPITAL COURSE: This is a 66-year-old male with past medical history of diabetes with insulin dependency, essential hypertension, alcohol abuse, and gastritis, who came to [facility] because of increased weakness as well as cough. Of note, the patient was discharged from [facility] on 01/05/2017, to complete a course of IV antibiotics for his left great toe infection. The patient had finished his antibiotic regimen. The patient was found to have evidence of left great toe infection on this admission. The patient underwent x-ray of the left foot that showed evidence of osteomyelitis of the first distal phalanx, worse than seen previously. Hence, the patient was admitted to inpatient setting. The patient was started on antibiotics for a suspected acute bronchitis. Infectious disease consult and podiatry consult was called because of the patient's underlying recurrent left great toe cellulitis and worsening osteomyelitis evident on a foot x-ray. The patient had a left big toe wound culture that showed coagulase-negative bacteria. The patient was evaluated by Podiatry and Podiatry recommended no surgical intervention, but long-term IV antibiotics for at least six weeks. Consequently, the patient had a PICC line inserted, and the patient will be discharged home on a long-term IV antibiotics. The patient had underlying acute kidney injury upon presentation. Hence, Nephrology was involved in the patient's care. The patient most probably had acute kidney injury from prerenal causes. The patient's renal function improved and acute kidney injury has resolved during the patient's hospital course. The patient was noticed to have microcytic hypochromic anemia with underlying iron deficiency. The patient was started on iron supplements. The patient has underlying essential hypertension. He was maintained on antihypertensives for the same. The patient has history of diabetes mellitus and dependent on insulin. The patient was maintained on sliding scale insulin along with basal insulin with well-controlled blood sugars throughout the hospital course. The patient had a stable hospital course. The patient was cleared by consultants to be discharged home on long-term IV antibiotics. DISCHARGE DISPOSITION AND PLAN: The patient discharged home today. The patient was instructed to follow a carbohydrate- controlled diet. He was instructed to take medications as per prescription and to complete the course of IV antibiotics. The patient was instructed to resume activities as tolerated. He was instructed to follow up with Dr. Nielsen in two weeks. The patient verbalized understanding of his discharge instructions. DISCHARGE CONDITION: Stable. DISCHARGE MEDICATIONS: 1. Ferrous sulfate 325 mg p.o. b.i.d. 2. Lantus insulin 9 units subcutaneous daily. 3. Levaquin 500 mg p.o. daily. 4. Vancomycin IV per pharmacy until 03/29/2017. 5. Aspirin 81 mg p.o. daily. 6. Atorvastatin 40 mg p.o. at bedtime. 7. Lisinopril 20 mg p.o. daily. 8. Metoprolol 25 mg p.o. b.i.d. DIAGNOSTIC DATA: 1. Left foot x-ray: Osteomyelitis of the first distal phalanx worse than previously seen. Atherosclerosis. 2. Renal ultrasound: Nonobstructing 0.8 cm calculus in the upper left kidney. Bilateral hyperechoic kidneys consistent with medical renal disease. No hydronephrosis. 3. 02/27/2017, left upper extremity PICC line insertion. 4. Latest BMP: Sodium is 138, potassium 3.7, chloride 107, carbon dioxide 23, anion gap 12, BUN 17, creatinine 0.8, glucose 135, calcium 8.2, phosphorus 2.1, magnesium 1.5. 5. Latest CBC: WBC 13.9, hemoglobin 9.2, hematocrit 27.7, platelet count of 233. 6. Hemoglobin A1c 8.2. 7. Fasting lipid panel: Triglycerides 56, total cholesterol 60, LDL 23, AST of 26. 8. Iron panel: Iron less than 10. TIBC 233, ferritin 93.9. At this time I would like to thank all the consultants for seeing the patient and providing clinical recommendations. The case and management of this patient was fully discussed with . Approximately 40 minutes was spent on coordinating the discharge on this patient. Dictated By: Gustavo Rey NP /sd/jessica /Document#: [id number] ORIOND
== END 2017-02-28 21:00 | disposition home health service (06) | DRG 638 ==
LOC: E/R 12:25 → PP2 15:05
PROVIDERS: ADMIT Hospitalist; ATTEND Hospitalist
PROC: 02HV33Z Insertion of Infusion Device into Superior Vena Cava, Percutaneous Approach (ICD-10-PCS; principal; 2017-02-27)
DX: E10.69 Type 1 diabetes mellitus with other specified complication (principal); L03.116 Cellulitis of left lower limb; M86.8X7 Other osteomyelitis, ankle and foot; N17.9 Acute kidney failure, unspecified; E10.42 Type 1 diabetes mellitus with diabetic polyneuropathy; E10.621 Type 1 diabetes mellitus with foot ulcer; E83.42 Hypomagnesemia; E83.39 Other disorders of phosphorus metabolism; L97.529 Non-pressure chronic ulcer of other part of left foot with unspecified severity; Z79.4 Long term (current) use of insulin; J20.9 Acute bronchitis, unspecified; D64.9 Anemia, unspecified; K21.9 Gastro-esophageal reflux disease without esophagitis; I12.9 Hypertensive chronic kidney disease with stage 1 through stage 4 chronic kidney disease, or unspecified chronic kidney disease; N18.9 Chronic kidney disease, unspecified; F10.21 Alcohol dependence, in remission; E10.610 Type 1 diabetes mellitus with diabetic neuropathic arthropathy; E10.628 Type 1 diabetes mellitus with other skin complications; B95.8 Unspecified staphylococcus as the cause of diseases classified elsewhere
CPT/HCPCS: 36415; 36569; 71010; 76775; 76937; 80048; 80053; 80061; 80069; 80202; 81001; 81003; 82306; 82570; 82728; 82962; 83036; 83540; 83605; 83735; 83970; 84100; 84155; 84436; 84443; 84479; 84484; 85025; 85610; 85730; 87040; 87070; 87081; 87086; 87400; 89190; 90686; 92526; 92610; 93005; 96365; 96366; 96375; C9113; J0456; J0696; J1815; J2185; J2405; J3370; J3475; J7030; J7050

== ENCOUNTER 2017-04-17 11:01 | Emergency (ER) | payer MEDICARE, OTHER ==
[~2017-04-17] VITALS: Wt 54.5 kg
[~2017-04-17 11:01] MED LIST changes: +FER325 PO; +LANT3I SC; -NOVMIX SC; -Vancomycin Iv Per Pharmacy IVPB; +Vancomycin Iv Per Pharmacy XX
--- NOTE | 2017-04-17 12:40 | ERD ---
ER Documentation Chief Complaint Chief Complaint picc removal HPI 66 year old male with a history of hypertension, diabetes, who was seen and discharged on February 28, 2017 after being evaluated by event management consultant Dr. Bud Nielsen her first left great toe distal phalanx osteomyelitis and cellulitis. Patient states that his pain is better, and he completed antibiotics a week ago with the home health nurse. Toe is doing well, he has not had any fevers, chills he rates his pain as 0 out of 10. ROS All systems reviewed and are negative except as per history of present illness. Medications Home Meds Active Scripts [Vancomycin Iv Per Pharmacy] 1 EA EACH No Conflict Check, 0 EA XX .PER PROTOCOL , #40 Prov:LEW HERNANDEZ NP 02/28/17 Insulin Glargine* (Lantus*) 100 Unit/Ml Soln, 9 UNIT SC DAILY@08, #30 UNIT Prov:LEW HERNANDEZ NP 02/28/17 Ferrous Sulfate* (Ferrous Sulfate*) 325 Mg Tabec, 325 MG PO BID, #60 TAB Prov:LEW HERNANDEZ NP 02/28/17 Levofloxacin* (Levaquin*) 500 Mg Tablet, 500 MG PO DAILY@06, #41 TAB Prov:LEW HERNANDEZ NP 02/28/17 Aspirin (Aspirin) 81 Mg Chew, 81 MG PO DAILY for 60 Days, #60 TAB Prov:ROCHELLE MCBRIDE MD 01/05/17 Metoprolol Tartrate* (Lopressor*) 25 Mg Tab, 25 MG PO BID for 30 Days, #60 TAB Prov:ROCHELLE MCBRIDE MD 01/05/17 Lisinopril* (Lisinopril*) 20 Mg Tablet, 20 MG PO DAILY for 30 Days, #30 TAB Prov:ROCHELLE MCBRIDE MD 01/05/17 Atorvastatin* (Atorvastatin*) 40 Mg Tablet, 40 MG PO HS for 60 Days, #60 TAB Prov:ROCHELLE MCBRIDE MD 01/05/17 Allergies Allergies: Coded Allergies: No Known Allergy (Unverified , 02/24/17) PMhx/Soc History of Surgery: No Anesthesia Reaction: No Hx Neurological Disorder: No (NEUROPATHY) Hx Respiratory Disorders: No Hx Cardiac Disorders: No Hx Psychiatric Problems: No Hx Miscellaneous Medical Probl: Yes (GI bleed ) Hx Alcohol Use: No Hx Substance Use: No Hx Tobacco Use: No Smoking Status: Never smoker Physical Exam Vitals Vital Signs Date Time Temp Pulse Resp B/P Pulse Ox O2 Delivery O2 Flow Rate FiO2 04/17/17 11:04 97.4 62 20 104/60 98 Physical Exam General: Well-developed, well-nourished. The patient appears in no acute distress. HEENT: Head is normocephalic, atraumatic. No scleral icterus. Neck: Supple. Nontender. Lungs: Clear to auscultation. Normal air movement. Heart: Regular rate and rhythm. S1 and S2 are normal. No murmurs, gallops, or rubs. Abdomen: Soft, nontender, nondistended. Bowel sounds are normoactive. Extremities: PICC line intact in the left upper extremity, no erythema, no bleeding. Neurologic: Alert and oriented 3. No focal deficits. Skin: Normal turgor. No rash or lesions. Procedures/MDM Course: Gauze was placed above the insertion of the PICC line, very gentle traction was applied and without any resistance the PICC line was removed in 1 piece including the tip. There is no bleeding, no swelling, patient was neurovascularly intact post-PICC line removal. Medical decision makin-year-old male comes emergency department with a PICC line in the left upper extremity, I spoke with his event management consultant who states that he may follow-up with [facility]. I will provide him discharge instructions on follow-up. The toe does have some swelling but no warmth or erythema, it was agreed that the PICC line may be removed. The case was reviewed and discussed with Dr. Ludwig who agrees with the plan of care including labs, treatment, and advanced imaging as appropriate. Departure Diagnosis: Primary Impression: PIC line (peripherally inserted central catheter) removal Condition: Good Patient Instructions: Wound Care Referrals: [facility] BAL[facility] GARCIA PA-C Apr 17, 2017 12:40
== END 2017-04-17 11:55 | disposition home or self-care (01) ==
LOC: FTE 11:01
DX: Z45.2 Encounter for adjustment and management of vascular access device (principal); Z79.82 Long term (current) use of aspirin
CPT/HCPCS: 99282

== ENCOUNTER 2017-06-14 14:05 | Emergency (ER) | END 2017-06-14 22:26 | disposition home or self-care (01) ==